=== PATIENT | female | born 1985 | race Caucasian/White ===

== ENCOUNTER → 2017-10-22 12:00 | Outpatient (CLI) | payer MEDICAID, SELFPAY ==
[2017-10-22 13:30] LABS: Free T3 3.1 pg/mL (2.18-3.98); T4 Free Direct 0.95 ng/dL (0.76-1.46)
[2017-10-23 14:47] LABS: Thyroid Peroxidase AB 128 IU/mL (0-34)
== END ==
PROVIDERS: Visit Provider Nurse Practitioner
DX: E03.9 Hypothyroidism, unspecified (principal)
CPT/HCPCS: 36415; 84439; 84443; 84481; 86376

== ENCOUNTER 2017-10-29 13:37 | Emergency (ER) | payer MEDICAID, SELFPAY ==
[2017-10-29 13:40] VITALS: BP 150/107; PULSE 104; RESP 18; TEMP 36.4; O2SAT 96; BMI 33.3
--- NOTE | 2017-10-29 13:42 | RAD_ITS ---
STUDY: X-RAY - LEFT KNEE REASON FOR EXAM: Female, 32 years old. Left knee pain following a fall. TECHNIQUE: 4 view(s) of the knee. COMPARISON: None. FINDINGS: Normal visualized distal femur. Normal visualized proximal tibia and fibula. Normal proximal tibiofibular articulation. Normal medial femorotibial compartment. Normal lateral femorotibial compartment. Normal patellofemoral articulation. The soft tissue structures are unremarkable. RAD/Knee 4 or More Views IMPRESSION: Normal x-ray examination of the knee. Electronically Signed: Nicholas Ty MD at 14:06 EST Tel [phone], Service support ,
--- NOTE | 2017-10-29 15:04 | ED.VISSUMM ---
- ER Visit Summary Date of Service: 10/29/17 Chief Complaint: Knee pain status post fall History of Present Illness: The patient is a 32 F who slipped this morning. She landed on her left knee. She presents because of increasing pain and swelling. Immunization is not known. She believes it is greater than 10 years. She reports limited range of motion and pain with ambulation. She is on no medication and reports no medical problems. She is a smoker. She denies any paresthesia, anesthesia or motor weakness. She denies any other injury. Please read written note for complete detail Physical Examination: Vital signs are remarkable for an elevated blood pressure 150/107 and a heart rate of 104. She is not hypoxic nor is she febrile. Examination left knee reveals contusion abrasion over the left patella. The patella is not ballotable. There is no effusion. She is able to extend to 170? and flex to 100?. There is no laxity with varus valgus stress testing. Yung's test is negative. Modified Lamar's test is negative. She did complain of pain along the anterior tibial plateau. There is no neurovascular deficit distal to injury. Test Results: X-ray of the knee was obtained per nurse protocol. There is no evidence of fracture, foreign body or effusion. Emergency Department Course and Treatment: 4 view x-ray of the left knee was obtained per nurse protocol. Adacel IM and appropriate wound care. Treatment Plan: Symptomatic treatment and appropriate home-going instructions Disposition: Discharge to home Impression: Contusion and abrasion left knee status post fall initial encounter This note was generated with [employer] dictation software. It may contain incorrect words, spelling, and punctuation that were not noted in review of the chart prior to signing ED Disposition - Plan for ED Patient: Disposition: Home or Assisted Living Chief Complaint: Lower Extremity Injury Instructions: ED Contusion Lower Ext, ED Abrasion Referrals: Care Physician,No Primary [Primary Care Provider] - Viola Velasquez MD [STAFF PHYSICIAN] - 1 Week if not improving
--- NOTE | 2017-10-29 15:10 | ED.DCSUM_ITS ---
- ER Visit Summary Date of Service: 10/29/17 Chief Complaint: Knee pain status post fall History of Present Illness: The patient is a 32 F who slipped this morning. She landed on her left knee. She presents because of increasing pain and swelling. Immunization is not known. She believes it is greater than 10 years. She reports limited range of motion and pain with ambulation. She is on no medication and reports no medical problems. She is a smoker. She denies any paresthesia, anesthesia or motor weakness. She denies any other injury. Please read written note for complete detail Physical Examination: Vital signs are remarkable for an elevated blood pressure 150/107 and a heart rate of 104. She is not hypoxic nor is she febrile. Examination left knee reveals contusion abrasion over the left patella. The patella is not ballotable. There is no effusion. She is able to extend to 170 ? and flex to 100?. There is no laxity with varus valgus stress testing. Yung's test is negative. Modified Lamar's test is negative. She did complain of pain along the anterior tibial plateau. There is no neurovascular deficit distal to injury. Test Results: X-ray of the knee was obtained per nurse protocol. There is no evidence of fracture, foreign body or effusion. Emergency Department Course and Treatment: 4 view x-ray of the left knee was obtained per nurse protocol. Adacel IM and appropriate wound care. Treatment Plan: Symptomatic treatment and appropriate home-going instructions Disposition: Discharge to home Impression: Contusion and abrasion left knee status post fall initial encounter This note was generated with [employer] dictation software. It may contain incorrect words, spelling, and punctuation that were not noted in review of the chart prior to signing ED Disposition - Plan for ED Patient: Disposition: Home or Assisted Living Chief Complaint: Lower Extremity Injury Instructions: ED Contusion Lower Ext, ED Abrasion Referrals: Care Physician,No Primary [Primary Care Provider] - Viola Velasquez MD [STAFF PHYSICIAN] - 1 Week if not improving
[2017-10-29] MEDS: Diphth,Pertuss(Acell),Tet Vac 0.5 ML Vial IM (15:31)
[2017-10-29 15:32] VITALS: BP 135/77; PULSE 59; RESP 16; O2SAT 98
== END 2017-10-29 15:33 | disposition home or self-care (01) ==
PROVIDERS: Emergency Provider Emergency Medicine
DX: S80.02XA Contusion of left knee, initial encounter (principal); S80.212A Abrasion, left knee, initial encounter; W01.0XXA Fall on same level from slipping, tripping and stumbling without subsequent striking against object, initial encounter; Y93.9 Activity, unspecified; Y92.9 Unspecified place or not applicable; F17.200 Nicotine dependence, unspecified, uncomplicated
CPT/HCPCS: 73564; 90471; 90715; 99282

== ENCOUNTER 2018-03-25 12:22 | Emergency (ER) | payer MEDICAID, SELFPAY ==
[2018-03-25 12:23] VITALS: BP 135/86; PULSE 90; RESP 16; TEMP 36.3; O2SAT 98; BMI 32.5
--- NOTE | 2018-03-25 15:10 | ED.DCSUM_ITS ---
- ER Visit Summary Date of Service: 03/25/18 Chief Complaint: Right shoulder pain History of Present Illness: The patient is a 32 F who presents with about 1 day of pain along the right side of her neck down into the back of her shoulder and upper back. She has a history of prior similar symptoms about a year ago and was diagnosed with a trapezius strain. She denies any fall or injury. She has tried Tylenol ibuprofen and heating pad with only minimal relief. No paresthesias weakness or loss of function. No chest pain or shortness of breath. Physical Examination: Afebrile vitals are stable Patient resting comfortably Heart is regular rate and rhythm Lungs are clear Patient has pain on palpation focal to the distribution of the right trapezius she has active full range of motion of the shoulder normal sensation distally brisk capillary refill Test Results: Not indicated Emergency Department Course and Treatment: History and examination are consistent with a right trapezius strain. She was given prescriptions for naproxen and Flexeril. She is agreeable to this plan. She understands return for new or worsening symptoms and otherwise to follow-up as an outpatient as needed and was discharged home. Treatment Plan: [] Disposition: Discharge Impression: Right trapezius strain This note was generated with [employer] dictation software. It may contain incorrect words, spelling, and punctuation that were not noted in review of the chart prior to signing ED Disposition - Plan for ED Patient: Chief Complaint: Upper Extremity Injury Referrals: Care Physician,No Primary [Primary Care Provider] -
--- NOTE | 2018-03-25 15:10 | ED.DEP ---
ED Disposition - Plan for ED Patient: Chief Complaint: Upper Extremity Injury Instructions: ED Strain Muscle Ext Prescriptions: Naproxen [Naprosyn] 500 mg PO BID #20 tab Cyclobenzaprine [Flexeril] 10 mg PO TID PRN #20 tab PRN Reason: Muscle Spasm Referrals: Care Physician,No Primary [Primary Care Provider] -
== END 2018-03-25 15:19 | disposition home or self-care (01) ==
PROVIDERS: Emergency Provider Emergency Medicine
DX: S46.811A Strain of other muscles, fascia and tendons at shoulder and upper arm level, right arm, initial encounter (principal); X58.XXXA Exposure to other specified factors, initial encounter; Y93.9 Activity, unspecified; Y92.9 Unspecified place or not applicable; Z72.0 Tobacco use
CPT/HCPCS: 99282

== ENCOUNTER → 2018-04-18 15:04 | Outpatient (CLI) | payer MEDICAID, SELFPAY ==
[2018-04-18 16:44] LABS: Follicle Stimulating Hormone 63.8 mIU/mL; Free T3 2.5 pg/mL (2.18-3.98); Luteinizing Hormone 32.6 mIU/mL; Prolactin 5.4 ng/mL; T4 Free Direct 0.87 ng/dL (0.76-1.46); Thyroid Stim Hormone (TSH) 2.63 uIU/mL (0.358-3.74)
[2018-04-23 14:07] LABS: Testosterone, % Free 2.69 % (0.50-2.80); Testosterone, Free 0.43 ng/dL (0.10-0.85); Testosterone, Total 16 ng/dL (8-48)
[2018-04-24 12:05] LABS: Estrogen, Total, Serum 55 pg/mL (.)
== END ==
PROVIDERS: Visit Provider Obstetrics & Gynecology
DX: E28.310 Symptomatic premature menopause (principal)
CPT/HCPCS: 36415; 82672; 83001; 83002; 83036; 84146; 84402; 84403; 84439; 84443; 84481

== ENCOUNTER → 2018-04-24 17:58 | Outpatient (CLI) | payer MEDICAID, SELFPAY ==
[2018-05-01 11:42] LABS: HPV Reflexed? NOT INDICATED
== END ==
PROVIDERS: Visit Provider Obstetrics & Gynecology
DX: Z12.4 Encounter for screening for malignant neoplasm of cervix (principal); Z12.72 Encounter for screening for malignant neoplasm of vagina
CPT/HCPCS: 88175; G0145

== ENCOUNTER 2018-08-06 22:27 | Emergency (ER) | payer MEDICAID, SELFPAY ==
[2018-08-06 22:28] VITALS: BP 141/50; PULSE 97; RESP 14; TEMP 36.7; O2SAT 95; BMI 29.5
--- NOTE | 2018-08-06 23:15 | RAD_ITS ---
STUDY: X-RAY - LEFT KNEE REASON FOR EXAM: Female, 33 years old. Pain. TECHNIQUE: 4 view(s) of the knee. COMPARISON: October 29, 2017. FINDINGS: Normal visualized distal femur. Normal visualized proximal tibia and fibula. Normal proximal tibiofibular articulation. Normal medial femorotibial compartment. Normal lateral femorotibial compartment. Normal patellofemoral articulation. The soft tissue structures are unremarkable. RAD/Knee 4 or More Views IMPRESSION: Normal x-ray examination of the knee. Electronically Signed: Dilshad Ibanez MD at 23:47 EST , Service support ,
[2018-08-06 23:54] LABS: D-Dimer Quantitative (DVT/PE) < 0.27 FEU/ug/m (0.27-0.49)
--- NOTE | 2018-08-07 00:01 | ED.DCSUM_ITS ---
- ER Visit Summary Date of Service: 08/06/18 Chief Complaint: Pain of the left knee. History of Present Illness: The patient is a 33 F who presents with left knee pain. She had surgery 6-7 weeks ago. She states that they removed a nerve bundle and three quarters of my fat pad. She states that her pain was improving after the surgery but has increased over the last 6 days. She states this was an outpatient surgery. She cannot remember what city the surgery was done and and cannot remember her surgeon's name. She is states that she did speak to the office who was concerned about the possibility of a clot. No swelling. No paresthesias or weakness. No fever chest pain shortness of breath. She has hydrocodone and naproxen at home which she states is not helping. Physical Examination: Afebrile vitals are normal Moist mucous membranes line heart regular rate No respiratory distress Patient does have pain on palpation of the left knee there are some anterior surgical scars no appreciable effusion no deformity active full range of motion no edema of the left lower extremity no calf tenderness, easily palpable dorsalis pedis pulse with brisk capillary refill and normal sensation light touch normal motor function no weakness Test Results: D-dimer is negative. Knee x-ray is normal. Emergency Department Course and Treatment: Patient's examination is not suggestive of DVT as her pain is focal just to the knee and she does not have any edema or calf tenderness. Her d-dimer is negative. Therefore I do feel DVT is ruled out. Her x-ray is unremarkable she does not have evidence of infection such as erythema or warmth there is no effusion. She is already taking NSAIDs and narcotics so was advised on supportive care including rest ice and elevation. She was advised to follow-up with her orthopedic surgeon was discharged home. Treatment Plan: [] Disposition: Discharge Impression: Left knee pain This note was generated with [employer] dictation software. It may contain incorrect words, spelling, and punctuation that were not noted in review of the chart prior to signing ED Disposition - Plan for ED Patient: Chief Complaint: Lower Extremity Injury Referrals: Care Physician,No Primary [Primary Care Provider] -
--- NOTE | 2018-08-07 00:01 | ED.DEP ---
ED Disposition - Plan for ED Patient: Chief Complaint: Lower Extremity Injury Instructions: ED Knee Pain [facility] Referrals: Care Physician,No Primary [Primary Care Provider] -
[2018-08-07 00:03] VITALS: BP 136/68; PULSE 71; RESP 16; O2SAT 100
--- OUTSIDE RECORDS SUMMARY | 2018-10-02 10:43 | XMS RPT_ITS ---
:1985 Author Organization [facility] Care Team Providers Name Role Phone DEBBIE CALDERON Referring Unavailable DEBBIE CALDERON Admitting Unavailable DEBBIE CALDERON Attending Unavailable TOMMY WILKERSON Attending Unavailable EMILY TRONCOSO Referring Unavailable TOMMY WILKERSON Attending Unavailable EMILY TRONCOSO Referring Unavailable FARROW, LUTUL D Attending Unavailable LOCKETT, LISA (PT) Attending Unavailable FARROW, LUTUL D Referring Unavailable STEVENSON MICHELE (PA-C) Attending Unavailable FARROW, LUTUL D Referring Unavailable LOCKETTCATIE (PT) Attending Unavailable FARROW, LUTUL D Referring Unavailable LOCKETTCATIE (PT) Attending Unavailable FARROW, LUTUL D Referring Unavailable ShookRajwinder ALLERGIST-C Attending Unavailable Primay Care Physicia, No Referring Unavailable Primay Care Physicia, No Primary Care Unavailable ShookRajwinder ALLERGIST-C Attending Unavailable ShookRajwinder ALLERGIST-C Referring Unavailable Primay Care Physicia, No Primary Care Unavailable Primay Care Physicia, No Primary Care Unavailable Nick Silveira Attending Unavailable Primay Care Physicia, No Primary Care Unavailable Watson Ocampo Attending Unavailable Zander Hodges Attending Unavailable Primay Care Physicia, No Primary Care Unavailable Zander Hodges Attending Unavailable Zander Hodges Referring Unavailable Primay Care Physicia, No Primary Care Unavailable Primay Care Physicia, No Primary Care Unavailable Watson Ocampo Attending Unavailable PROBLEMS PROBLEMS DATE TYPE CONDITION / CODE ATTENDING STATUS SOURCE 06/03/2018 Active Unknown / CATIE LOCKETT Active [facility] UNK(Unknown) (PT) Main [place] Repository 05/21/2018 Active Pain in unspecified FARROW, LUTUL D Active [facility] knee / Other [place] M25.569(ICD-10) Repository 05/21/2018 Active 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, unspecified / D36.10(ICD-10) 05/21/2018 Active Pain in left knee / NA Active [facility] M25.562(ICD-10) Other [place] Repository 12/01/2015 Active Mild intermittent NA Active [facility] asthma, Other [place] uncomplicated / Repository J45.20(ICD-10) 05/24/2018 Active Encounter for other NA Active [facility] preprocedural Other [place] examination / Repository Z01.818(ICD-10) 04/25/2018 Unknown Z12.4 - Encounter Zander Hodges Active [place] for screening for Community malignant neoplasm [facility] cervix / Repository Z12.4(ICD-10) 04/25/2018 Unknown Z12.72 - Encounter Zander Hodges Active [place] for screening for Community malignant neoplasm Hospital of vagina / Repository Z12.72(ICD-10) 10/22/2017 Unknown E03.9 - Rajwinder Garay Active [place] Hypothyroidism, ALLERGIST-C Community unspecified / Hospital E03.9(ICD-10) Repository PROCEDURES PROCEDURES No Procedure Records FoundRESULTS RESULTS EMERGENCY DEPARTMENT Observed: 08/07/2018 Status: F Source: [place] SUMMARY 12:01 AM [facility] REPOSITORY [facility] Medical Records Department [address] [place] [address] Emergency Department Summary 08/06/18 2358 MR#: [id number] Acct: [id number] Name: WILFRID POND Rep #: [id number] : 1985 33 From: Watson Ocampo MD PCP: Care Physician, No Primary Status: REG ER - ER Visit Summary Date of Service: 08/06/18 Chief Complaint: Pain of the left knee. History of Present Illness: The patient is a 33 F who presents with left knee pain. She had surgery 6-7 weeks ago. She states that they removed a nerve bundle and three quarters of my fat pad. She states that her pain was improving after the surgery but has increased over the last 6 days. She states this was an outpatient surgery. She cannot remember what city the surgery was done and and cannot remember her surgeon's name. She is states that she did speak to the office who was concerned about the possibility of a clot. No swelling. No paresthesias or weakness. No fever chest pain shortness of breath. She has hydrocodone and naproxen at home which she states is not helping. Physical Examination: Afebrile vitals are normal Moist mucous membranes line heart regular rate No respiratory distress Patient does have pain on palpation of the left knee there are some anterior surgical scars no appreciable effusion no deformity active full range of motion no edema of the left lower extremity no calf tenderness, easily palpable dorsalis pedis pulse with brisk capillary refill and normal sensation light touch normal motor function no weakness Test Results: D-dimer is negative. Knee x-ray is normal. Emergency Department Course and Treatment: Patient's examination is not suggestive of DVT as her pain is focal just to the knee and she does not have any edema or calf tenderness. Her d-dimer is negative. Therefore I do feel DVT is ruled out. Her x-ray is unremarkable she does not have evidence of infection such as erythema or warmth there is no effusion. She is already taking NSAIDs and narcotics so was advised on supportive care including rest ice and elevation. She was advised to follow-up with her orthopedic surgeon was discharged home. Treatment Plan: [] Disposition: Discharge Impression: Left knee pain This note was generated with [employer] dictation software. It may contain incorrect words, spelling, and punctuation that were not noted in review of the chart prior to signing ED Disposition - Plan for ED Patient: Chief Complaint: Lower Extremity Injury Referrals: Care Physician,No Primary [Primary Care Provider] - What to do if you have Problems For any increased pain, shortness of breath, bleeding, nausea or vomiting, chest pain, or any unexpected problems, contact your Primary Care Provider. Call [facility] ([phone]) or report to the closest Emergency Room. Call 911 if necessary. 08/07/18 0001 <Electronically signed by Watson Ocampo MD> Date Watson Ocampo MD Cosigner Signature (If Indicated): Date CC: No Primary Care Physician DISCHARGE INSTRUCTION Observed: 08/07/2018 Status: F Source: [place] 12:01 AM [facility] REPOSITORY [facility] Medical Records Department [address] [place] [address] Discharge Instruction 08/07/18 0001 MR#: [id number] Acct: [id number] Name: WILFRID POND Rep #: [id number] : 1985 33 From: Watson Ocampo MD PCP: Rebecca Physician, No Primary Status: REG ER ED Disposition - Plan for ED Patient: Chief Complaint: Lower Extremity Injury Instructions: ED Knee Pain [facility] Referrals: Rebecca Physician,No Primary [Primary Care Provider] - What to do if you have Problems For any increased pain, shortness of breath, bleeding, nausea or vomiting, chest pain, or any unexpected problems, contact your Primary Care Provider. Call [facility] ([phone]) or report to the closest Emergency Room. Call 911 if necessary. 08/07/18 0001 <Electronically signed by Watson Ocampo MD> Date Watson Ocampo MD Cosigner Signature (If Indicated): Date CC: No Primary Care Physician D-DIMER QUANTITATIVE Collected: 08/06/2018 Status: F Source: [place] (DVT/PE) 11:22 PM [facility] REPOSITORY TYPE CODE TESTS RESULT OUT OF RANGE REFERENCE UNITS LAB L300.8000 0.27-0.49 FEU/ug/m Low D-DIMER < 0.27 QUANT Result Comment: NORMAL D-Dimer level (<0.50) indicates no DVT or PE. Performed By: #### L300.8000 #### [facility] [address] [place], [address] KNEE 4 OR MORE Observed: 08/06/2018 Status: F Source: [place] VIEWS 11:15 PM [facility] REPOSITORY [facility] Imaging Services [address] [place] [address] Knee 4 or More Views MR#: [id number] Acct: [id number] Name: ESIFTIKHARWILFRID Rep #: [id number] : 1985 F 33 From: Dilshad Ibanez PCP: Care Physician, No Primary Status: REG ER Study: Knee 4 or More Views Date of Exam: 08/06/18 Exam# [id number] Ordering Dr: Watson Ocampo MD STUDY: X-RAY - LEFT KNEE REASON FOR EXAM: Female, 33 years old. Pain. TECHNIQUE: 4 view(s) of the knee. COMPARISON: October 29, 2017. FINDINGS: Normal visualized distal femur. Normal visualized proximal tibia and fibula. Normal proximal tibiofibular articulation. Normal medial femorotibial compartment. Normal lateral femorotibial compartment. Normal patellofemoral articulation. The soft tissue structures are unremarkable. RAD/Knee 4 or More Views IMPRESSION: Normal x-ray examination of the knee. Electronically Signed: Dilshad Ibanez MD at 23:47 EST , Service support , CC: No Primary Care Physician; Watson Ocampo MD Inventory Control Specialist: Signed PROGRESS Observed: 06/19/2018 Status: COMPLETED Source: [place] 1:25 PM [facility] [place] REPOSITORY O ID: [id number] Author: Catie (Pt) Gaudencio Service: (none) Author Type: Physical Therapist Type: Progress Notes Filed: 06/19/2018 1:28 PM Note Text: Episode Visit Count: 3 Therapist That Will Oversee The Plan Of Care: Catie Lockett Start of Care Date: 06/03/18 Onset Date: 05/27/18 Plan of Care Certification Date: 06/03/18 Patient Identified by Name and Date of : Yes REHABILITATION AND SPORTS THERAPY PHYSICAL THERAPY TREATMENT NOTE ASSESSMENT: Wilfrid Pond demonstrated improvements in both flexion and extension ROM, improved gait and strength. Found great results of knee flexion with less pain in prone position. Also alternate step stretch found helpful. Best extension in prone The patient will continue to benefit from continued skilled physical therapy for progression of ROM and strengthening per protocal PLAN FOR NEXT VISIT: Progress per post op protocol . Continue to work on ROM. SUBJECTIVE: Pt notes that she feels she is doing better. Knee still feel tight and swollen to bend it but able to get around better. Admits that she goes without crutch a little for short distance in the house Pain Score: 5/10 Pain Location: Knee - Left Description: Aching Frequency: Continuous Post Treatment Pain Score: No Change Pain Location: Knee - Left Post Treatment Pain Description: Aching OBJECTIVE MEASURES WITH LEVEL OF FUNCTION: LE AROM R Knee Flexion: 93 Degrees LE PROM R Knee Extension: 0 Degrees R Knee Flexion: 97 Degrees (on step) TREATMENT: Therapeutic Exercise: 1: quad sets 2x10 2: SLR 2x10 3: standing TKE no resistance 2x10 4: heelslides 1x15 supine with strap 5: prone hang for extension with towel roll under thigh , and use of lacrosse ball to hamstrings 6: seated knee flexion stretch wtih gravilty pull and use of lacrosse ball to thigh for quad relaxation with good results 7: prone knee flexion passive x4 8: supine knee flexion with legs on physioball 2x10 9: strap gastroc stretch long siitting 30 sec x3 10: green step ups 2x10 11: flexion stretch on 2nd step x6 12: LAQ 2x10 13: seated hamstring stretch 30 sec x3 Skilled Intervention: Patient was educated in proper exercise technique and purpose for exercises. Skilled judgment was provided in selection of appropriate interventions. Correct performance of therapeutic exercises was facilitated with verbal and visual cuing. Assigned Home Exercise Program: 1: may add step stretch for flexion. Billing: [facility]: Therapeutic Exercise ([id number]): 1:1 time: 40 minutes (3 units: 38-52 mins) Total time: 40 minutes Catie Lockett PT CNTHERAPY Observed: 06/18/2018 Status: COMPLETED Source: [place] 3:30 PM [facility] REPOSITORY OT/PT/Speech Visit (PTWS) WILFRID POND ([id number]) 1985 F Date Time Provider Department 06/18/18 3:30 PM CATIE LOCKETT (PT) PTWS Date Time Provider Department Center 06/18/2018 3:30 PM [id number], LISA (PT) PTWS [facility] [place] Reason for Visit: Physical Therapy [503] Primary Visit Diagnosis:S/P left knee surgery [Z98.890] Allergies As of Date: 06/18/2018 Noted Allergy Reaction DEXTROMETHORPHAN 02/23/2011 16 - Unknown FENTANYL 01/04/2016 9 - Itching Comments: Pt. states almost ripped skin off post-op KETOROLAC 02/23/2011 16 - Unknown Comments: Motrin= home med PSEUDOEPHEDRINE 02/23/2011 16 - Unknown TAPE (ADHESIVE TAPE-SILICONES) 05/27/2018 14 - Other: See Comments Comments: PLASTIC TAPE Date Reviewed: 06/13/2018 Reviewed by: Stevenson Michele - Fully Assessed Prescriptions as of 06/18/2018 Sig: NAPROSYN ORAL Take by mouth. HYDROCODONE 5 MG-ACETAMINOPHE* Take 1-2 tablets by mouth tyrone* ALBUTEROL INHALATION Inhale as instructed as need* Progress Notes: Catie Lockett PT 06/19/2018 1:28 PM Signed Episode Visit Count: 3 Therapist That Will Oversee The Plan Of Care: Catie Lockett Start of Care Date: 06/03/18 Onset Date: 05/27/18 Plan of Care Certification Date: 06/03/18 Patient Identified by Name and Date of : Yes REHABILITATION AND SPORTS THERAPY PHYSICAL THERAPY TREATMENT NOTE ASSESSMENT: Wilfrid Demi Pond demonstrated improvements in both flexion and extension ROM, improved gait and strength. Found great results of knee flexion with less pain in prone position. Also alternate step stretch found helpful. Best extension in prone The patient will continue to benefit from continued skilled physical therapy for progression of ROM and strengthening per protocal PLAN FOR NEXT VISIT: Progress per post op protocol . Continue to work on ROM. SUBJECTIVE: Pt notes that she feels she is doing better. Knee still feel tight and swollen to bend it but able to get around better. Admits that she goes without crutch a little for short distance in the house Pain Score: 5/10 Pain Location: Knee - Left Description: Aching Frequency: Continuous Post Treatment Pain Score: No Change Pain Location: Knee - Left Post Treatment Pain Description: Aching OBJECTIVE MEASURES WITH LEVEL OF FUNCTION: LE AROM R Knee Flexion: 93 Degrees LE PROM R Knee Extension: 0 Degrees R Knee Flexion: 97 Degrees (on step) TREATMENT: Therapeutic Exercise: 1: quad sets 2x10 2: SLR 2x10 3: standing TKE no resistance 2x10 4: heelslides 1x15 supine with strap 5: prone hang for extension with towel roll under thigh , and use of lacrosse ball to hamstrings 6: seated knee flexion stretch wtih gravilty pull and use of lacrosse ball to thigh for quad relaxation with good results 7: prone knee flexion passive x4 8: supine knee flexion with legs on physioball 2x10 9: strap gastroc stretch long siitting 30 sec x3 10: green step ups 2x10 11: flexion stretch on 2nd step x6 12: LAQ 2x10 13: seated hamstring stretch 30 sec x3 Skilled Intervention: Patient was educated in proper exercise technique and purpose for exercises. Skilled judgment was provided in selection of appropriate interventions. Correct performance of therapeutic exercises was facilitated with verbal and visual cuing. Assigned Home Exercise Program: 1: may add step stretch for flexion. Billing: [facility]: Therapeutic Exercise ([id number]): 1:1 time: 40 minutes (3 units: 38-52 mins) Total time: 40 minutes Catie Lockett PT PROGRESS Observed: 06/14/2018 Status: COMPLETED Source: [place] 9:04 AM [facility] REPOSITORY O ID: [id number] Author: Catie Lockett Service: (none) Author Type: Physical Therapist Type: Progress Notes Filed: 06/14/2018 9:07 AM Note Text: Episode Visit Count: 2 Therapist That Will Oversee The Plan Of Care: Catie Lockett Start of Care Date: 06/03/18 Onset Date: 05/27/18 Plan of Care Certification Date: 06/03/18 Patient Identified by Name and Date of : Yes REHABILITATION AND SPORTS THERAPY PHYSICAL THERAPY TREATMENT NOTE ASSESSMENT: Wilfrid R Esiftikhar demonstrated good quad contraction and SLR with no lag but continues to have very poor ROM. Able to achieve extension to -5 but flexion not yet to 90 degrees. Pt given several suggestions of different ways to stretch to achieve increased flexion. She was receptive. Overall decreased pain and improved gait pattern by end of session The patient will continue to benefit from continued skilled physical therapy for progression of exs to improve ROM and strength. PLAN FOR NEXT VISIT: Continue to work diligently on ROM SUBJECTIVE: Pt notes that she did see the doctor today, gave her rodney wrap, and tubigrip for knee. Pt states that she continues to have pain and limited motion but reports that she does like the prone extension stretch Pain Score: 8/10 Pain Location: Knee - Left Description: Aching Frequency: Continuous Post Treatment Pain Score: 6/10 Pain Location: Knee - Left Post Treatment Pain Description: Aching OBJECTIVE MEASURES WITH LEVEL OF FUNCTION: LE PROM R Knee Extension: -5 Degrees R Knee Flexion: 87 Degrees Gait with one crutch and moderate deviation of decreased flexion and extension TREATMENT: Therapeutic Exercise: 1: quad sets 2x10 2: SLR 2x10 3: standing TKE no resistance 2x10 4: heelslides 1x10 supine 5: prone hang for extension with towel roll under thigh , and use of lacrosse ball to hamstrings 6: seated knee flexion stretch wtih gravilty pull and use of lacrosse ball to thigh for quad relaxation with good results 7: retrowalking in parallel bars for emphasis and increased knee flexion and extension 8: seated knee flexion with body slide for incresaed flexion 1x5 9: strap gastroc stretch long siitting 30 sec x3 10: supine gravity assisted flexion with hands supporting thighs Skilled Intervention: Patient was educated in proper exercise technique and purpose for exercises. Skilled judgment was provided in selection of appropriate interventions. Correct performance of therapeutic exercises was facilitated with verbal and visual cuing. Assigned Home Exercise Program: 1: try alternate ways of stretching for flexion, soft tissue mobilization to quad mm for increased flexion Billing: [facility]: Therapeutic Exercise ([id number]): 1:1 time: 45 minutes (3 units: 38-52 mins) Total time: 45 minutes Catie Lockett PT CNTHERAPY Observed: 06/13/2018 Status: COMPLETED Source: [place] 5:00 PM [facility] REPOSITORY OT/PT/Speech Visit (PTWS) WILFRID POND ([id number]) 1985 F Date Time Provider Department 06/13/18 5:00 PM CATIE LOCKETT (PT) PTWS Date Time Provider Department Center 06/13/2018 5:00 PM [id number], LISA (PT) PTWS [facility] [place] Reason for Visit: Physical Therapy [503] Primary Visit Diagnosis:S/P left knee surgery [Z98.890] Allergies As of Date: 06/13/2018 Noted Allergy Reaction DEXTROMETHORPHAN 02/23/2011 16 - Unknown FENTANYL 01/04/2016 9 - Itching Comments: Pt. states almost ripped skin off post-op KETOROLAC 02/23/2011 16 - Unknown Comments: Motrin= home med PSEUDOEPHEDRINE 02/23/2011 16 - Unknown TAPE (ADHESIVE TAPE-SILICONES) 05/27/2018 14 - Other: See Comments Comments: PLASTIC TAPE Date Reviewed: 06/13/2018 Reviewed by: Stevenson Michele - Fully Assessed Prescriptions as of 06/13/2018 Sig: NAPROSYN ORAL Take by mouth. HYDROCODONE 5 MG-ACETAMINOPHE* Take 1-2 tablets by mouth tyrone* ALBUTEROL INHALATION Inhale as instructed as need* Progress Notes: Catie Lockett PT 06/14/2018 9:07 AM Signed Episode Visit Count: 2 Therapist That Will Oversee The Plan Of Care: Catie Lockett Start of Care Date: 06/03/18 Onset Date: 05/27/18 Plan of Care Certification Date: 06/03/18 Patient Identified by Name and Date of : Yes REHABILITATION AND SPORTS THERAPY PHYSICAL THERAPY TREATMENT NOTE ASSESSMENT: Wilfrid Pond demonstrated good quad contraction and SLR with no lag but continues to have very poor ROM. Able to achieve extension to -5 but flexion not yet to 90 degrees. Pt given several suggestions of different ways to stretch to achieve increased flexion. She was receptive. Overall decreased pain and improved gait pattern by end of session The patient will continue to benefit from continued skilled physical therapy for progression of exs to improve ROM and strength. PLAN FOR NEXT VISIT: Continue to work diligently on ROM SUBJECTIVE: Pt notes that she did see the doctor today, gave her rodney wrap, and tubigrip for knee. Pt states that she continues to have pain and limited motion but reports that she does like the prone extension stretch Pain Score: 8/10 Pain Location: Knee - Left Description: Aching Frequency: Continuous Post Treatment Pain Score: 6/10 Pain Location: Knee - Left Post Treatment Pain Description: Aching OBJECTIVE MEASURES WITH LEVEL OF FUNCTION: LE PROM R Knee Extension: -5 Degrees R Knee Flexion: 87 Degrees Gait with one crutch and moderate deviation of decreased flexion and extension TREATMENT: Therapeutic Exercise: 1: quad sets 2x10 2: SLR 2x10 3: standing TKE no resistance 2x10 4: heelslides 1x10 supine 5: prone hang for extension with towel roll under thigh , and use of lacrosse ball to hamstrings 6: seated knee flexion stretch wtih gravilty pull and use of lacrosse ball to thigh for quad relaxation with good results 7: retrowalking in parallel bars for emphasis and increased knee flexion and extension 8: seated knee flexion with body slide for incresaed flexion 1x5 9: strap gastroc stretch long siitting 30 sec x3 10: supine gravity assisted flexion with hands supporting thighs Skilled Intervention: Patient was educated in proper exercise technique and purpose for exercises. Skilled judgment was provided in selection of appropriate interventions. Correct performance of therapeutic exercises was facilitated with verbal and visual cuing. Assigned Home Exercise Program: 1: try alternate ways of stretching for flexion, soft tissue mobilization to quad mm for increased flexion Billing: [facility]: Therapeutic Exercise ([id number]): 1:1 time: 45 minutes (3 units: 38-52 mins) Total time: 45 minutes Catie Lockett PT PROGRESS Observed: 06/13/2018 Status: COMPLETED Source: [place] 12:05 PM [facility] REPOSITORY HNO ID: [id number] Author: Stevenson Michele Service: (none) Author Type: Physician Machine Joint Cutter Type: Progress Notes Filed: 06/13/2018 12:38 PM Note Text: Alice Pond is seen today status post SALK with Debbie Calderon M.D. at [facility] on 05/27/18. Post op diagnosis: First post op clinic visit; updated knee films not indicated. Reason for visit: Patient presents with: Postop left knee Patient conveys that her recovery has been without complications except for ongoing pain. Missed her originally scheduled postop appt last week. Currently involved in moving out of her residence, so she is very busy but has a lot of help from friends. Patient pleased with the outcome of surgery. Medication used during recovery: Naprosyn and [place] Medications and allergies reviewed and updated. Pain Scale: Pt. states pain is a 7 on a scale of 0-10. Ambulating with assistance. Using one crutch. Never used 2 crutches and temporarily used a walker Patient involved with physical therapy at the [facility]. Initial and only visit so far on 06/03. Physical therapy note has been provided. Reviewed OARRS report. Reviewed Problem list Examination: Wounds are undressed. Cleaned wounds with alcohol to remove surgical ink. No steri- strips on wounds. Wounds are becoming well-healed, and without drainage, unusual inflammation or edema. No erythema, mild effusion, no warmth. Proximal wound has a healing blister from the steri-strip. Radiographs not indicated for updating A/P: Doing very well except for pain. Reviewed operative note and findings. Compliant with crutches and participation in PT. Continue on with outpatient PT. Next PT appt is scheduled for later today. Postop pain medication refill requested and provided. Provided wound, knee and skin care education, Tubigrip and rodney wrap. OK to shower with the wound uncovered. RTC on 06/28 for a follow up visit with Dr. Calderon, no x-rays needed. Stevenson Michele, MS, NOLAN CNOV Observed: 06/13/2018 Status: COMPLETED Source: [place] 11:40 AM [facility] REPOSITORY Office Visit (ORTHST) WILFRID POND ([id number]) 1985 F Date Time Provider Department 06/13/18 11:40 AM STEVENSON MICHELE During your visit today, we recorded the following information about you: Stevenson Michele PA-C 06/13/2018 12:38 PM Signed Alice Pond is seen today status post SALK with Debbie Calderon M.D. at [facility] on 05/27/18. Post op diagnosis: First post op clinic visit; updated knee films not indicated. Reason for visit: Patient presents with: Postop left knee Patient conveys that her recovery has been without complications except for ongoing pain. Missed her originally scheduled postop appt last week. Currently involved in moving out of her residence, so she is very busy but has a lot of help from friends. Patient pleased with the outcome of surgery. Medication used during recovery: Naprosyn and [place] Medications and allergies reviewed and updated. Pain Scale: Pt. states pain is a 7 on a scale of 0-10. Ambulating with assistance. Using one crutch. Never used 2 crutches and temporarily used a walker Patient involved with physical therapy at the [facility]. Initial and only visit so far on 06/03. Physical therapy note has been provided. Reviewed OARRS report. Reviewed Problem list Examination: Wounds are undressed. Cleaned wounds with alcohol to remove surgical ink. No steri- strips on wounds. Wounds are becoming well-healed, and without drainage, unusual inflammation or edema. No erythema, mild effusion, no warmth. Proximal wound has a healing blister from the steri-strip. Radiographs not indicated for updating A/P: Doing very well except for pain. Reviewed operative note and findings. Compliant with crutches and participation in PT. Continue on with outpatient PT. Next PT appt is scheduled for later today. Postop pain medication refill requested and provided. Provided wound, knee and skin care education, Tubigrip and rodney wrap. OK to shower with the wound uncovered. RTC on 06/28 for a follow up visit with Dr. Calderon, no x-rays needed. Stevenson Michele, MS, NOLAN Michele PA-C 06/13/2018 12:30 PM Addendum KNEE ARTHROSCOPY - PHYSICAL THERAPY PROTOCOL Post-operative Period 0 to 3 weeks: 2 to 3 visits per week, 5 times a week home program Prone lying, supine with logroll under heel, and gentle stretching to achieve full hyper-extension Quad sets, may use electrical stimulation, increase # visit/week if quad inhibited Patellar mobilizations, especially superiorly Straight leg raises, full arc quads without weights Prone knee flexion, heel slides, calf and hamstring stretching Icing program, 3 to 5 times a day, 30 minutes each after exercises Crutches may be stopped within 1 week as long as the patient has full extension, can perform a straight leg raise without an extension lag, and ambulates without a limp. ?Patients may be weaned to one crutch (opposite arm, after 3 weeks) in order to normalize gait (no limp) and as long as full extension and no extension lag with straight leg raises are obtained. Begin quad exercises including mini-squats, wall slide mini- squats, partial arc quads (60 to 90 degrees), and hamstring curls with light weights when range of motion is full Toe raises with weights, step-ups (begin with 2 inches and progress to a full step) Crutches should be weaned off in this stage, and gait should be normal - if not, contact Dr. Calderon 3 to 6 weeks: 2 to 3 visits per week, 5 times a week home program Continue all exercises in previous phase (as described above) Focus rehabilitation towards more closed-chain exercises including leg presses, step-ups, mini-squats, leg extensions, and hamstring curls with light weights, high repetitions. ?Repetitions should be smooth and slow and NOT explosive. ?May begin jump rope exercises. ?May advance to swimming. Endurance closed-chain quadriceps exercises should begin such as Stairmaster, stationary bike, elliptical sales trainer, [place] trac, etc. ?Focus on increasing endurance and should be performed 3 to 4 times per week. If a pool is available, swimming may started at 1 month Gait and range of motion should be normal by 4 weeks. ?If it is not, contact Dr. Calderon Begin slow jogging (if allowed) and progress to slow running on even ground or treadmill, no cutting, jumping or pivoting (once range of motion is full and patient has full quadriceps control and if impact exercises are allowed) 6 weeks to 3 months: 3 to 5 times a week home program. ?May need physical therapy supervision for functional training. Begin advanced strengthening with weights including leg presses, squats, leg curls, and lunges Initiate pylometric program as appropriate for patient's functional goals May begin functional training exercises including fast straight running, backward running, cutting, cross-overs, carioca, etc. if impact exercises allowed Begin gradual return to previous sports/activities/work duties under controlled conditions Full return to sports/activities/full work duties are pending Dr. Calderon's approval based upon the following criteria: Criteria for Return to Sports/Full Activities: Normal muscle strength in the involved lower extremity Jog and full speed run without a limp Full range of motion No effusion or quadriceps atrophy Referring Provider: DEBBIE CALDERON [[id number]] Allergies As of Date: 06/13/2018 Noted Allergy Reaction DEXTROMETHORPHAN 02/23/2011 16 - Unknown FENTANYL 01/04/2016 9 - Itching Comments: Pt. states almost ripped skin off post-op KETOROLAC 02/23/2011 16 - Unknown Comments: Motrin= home med PSEUDOEPHEDRINE 02/23/2011 16 - Unknown TAPE (ADHESIVE TAPE-SILICONES) 05/27/2018 14 - Other: See Comments Comments: PLASTIC TAPE Date Reviewed: 06/13/2018 Reviewed by: Stevenson Michele - Fully Assessed Primary Visit Diagnosis:S/P left knee open neuroma excision and arthroscopic fat pad debridement [Z98.890] Other Visit Diagnoses:Left anterior knee pain [M25.562] S/P arthroscopy of knee [Z98.890] Order(s):HYDROcodone-acetaminophen (NORCO) 5-325 mg per tabletTake 1-2 tablets by mouth every 6 hours as needed for up to 7 days.Disp: 42 tabletRfl: 0 Prescriptions as of 06/13/2018 Sig: NAPROSYN ORAL Take by mouth. HYDROCODONE 5 MG-ACETAMINOPHE* Take 1-2 tablets by mouth tyrone* ALBUTEROL INHALATION Inhale as instructed as need* Medication notes this encounter ALBUTEROL INHALATION >> Angeline Deluna RN 06/13/2018 12:00 PM >> ANGELINE DELUNA RN Loretta Jun 13, 2018 12:00 PM Not using. 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 S/P left knee open neuroma excision and arthros*INVALID FOR* Other instructions from your clinician: KNEE ARTHROSCOPY - PHYSICAL THERAPY PROTOCOL Post-operative Period 0 to 3 weeks: 2 to 3 visits per week, 5 times a week home program Prone lying, supine with logroll under heel, and gentle stretching to achieve full hyper-extension Quad sets, may use electrical stimulation, increase # visit/week if quad inhibited Patellar mobilizations, especially superiorly Straight leg raises, full arc quads without weights Prone knee flexion, heel slides, calf and hamstring stretching Icing program, 3 to 5 times a day, 30 minutes each after exercises Crutches may be stopped within 1 week as long as the patient has full extension, can perform a straight leg raise without an extension lag, and ambulates without a limp. ?Patients may be weaned to one crutch (opposite arm, after 3 weeks) in order to normalize gait (no limp) and as long as full extension and no extension lag with straight leg raises are obtained. Begin quad exercises including mini-squats, wall slide mini-squats, partial arc quads (60 to 90 degrees), and hamstring curls with light weights when range of motion is full Toe raises with weights, step-ups (begin with 2 inches and progress to a full step) Crutches should be weaned off in this stage, and gait should be normal - if not, contact Dr. Calderon 3 to 6 weeks: 2 to 3 visits per week, 5 times a week home program Continue all exercises in previous phase (as described above) Focus rehabilitation towards more closed-chain exercises including leg presses, step-ups, mini-squats, leg extensions, and hamstring curls with light weights, high repetitions. ?Repetitions should be smooth and slow and NOT explosive. ?May begin jump rope exercises. ?May advance to swimming. Endurance closed-chain quadriceps exercises should begin such as Stairmaster, stationary bike, elliptical sales trainer, [place] trac, etc. ?Focus on increasing endurance and should be performed 3 to 4 times per week. If a pool is available, swimming may started at 1 month Gait and range of motion should be normal by 4 weeks. ?If it is not, contact Dr. Calderon Begin slow jogging (if allowed) and progress to slow running on even ground or treadmill, no cutting, jumping or pivoting (once range of motion is full and patient has full quadriceps control and if impact exercises are allowed) 6 weeks to 3 months: 3 to 5 times a week home program. ?May need physical therapy supervision for functional training. Begin advanced strengthening with weights including leg presses, squats, leg curls, and lunges Initiate pylometric program as appropriate for patient's functional goals May begin functional training exercises including fast straight running, backward running, cutting, cross-overs, carioca, etc. if impact exercises allowed Begin gradual return to previous sports/activities/work duties under controlled conditions Full return to sports/activities/full work duties are pending Dr. Calderon's approval based upon the following criteria: Criteria for Return to Sports/Full Activities: Normal muscle strength in the involved lower extremity Jog and full speed run without a limp Full range of motion No effusion or quadriceps atrophy Prescriptions ordered this encounter Disp Refills Start End HYDROCODONE 5 MG-ACETAMINOPHEN 325 M* 42 t* 0 06/13/2018 06/20/2018 Class: Print RX Route: ORAL Sig: Take 1-2 tablets by mouth every 6 hours as needed for up to 7 days. Medications Discontinued During This Encounter HYDROcodone-acetaminophen (NORCO) 5-* 20 t* 0 05/27/2018 06/13/2018 Class: Print RX Route: ORAL Sig: Take 1-2 tablets by mouth every 6 hours as needed for up to 7 days. Disc: Reason for discontinue is not on file. Encounter Status:Closed by STEVENSON MICHELE PA-C on 06/13/18 PROGRESS Observed: 06/04/2018 Status: COMPLETED Source: [place] 10:11 AM [facility] [place] REPOSITORY [facility] ID: [id number] Author: Catie (Pt) Gaudencio Service: (none) Author Type: Physical Therapist Type: Progress Notes Filed: 06/04/2018 10:15 AM Note Text: Episode Visit Count: 1 Therapist That Will Oversee The Plan Of Care: Catie Lockett Start of Care Date: 06/03/18 Onset Date: 05/27/18 Plan of Care Certification Date: 06/03/18 Patient Identified by Name and Date of : Yes REHABILITATION AND SPORTS THERAPY PHYSICAL THERAPY EVALUATION PLAN OF CARE: Assessment: Wilfrid Pond presents with the diagnosis of s/p left knee arthroscopy with excision of neuroma. . She presents with impairments of decreased ROM, strength, functional status and gait deviation. She may benefit from skilled therapy services to improve deficits and return to prior functional level. Prognosis: Good Good due to: current objective clinical presentation;good overall health status Goals for Episode of Care: created on 06/03/18 through 07/03/18 Patient will decrease pain rating by 2 points to meet minimal clinical important difference for numeric pain rating scale. Patient will increase active ROM of left knee equal to right to allow pt to improved performance of ADLs and to normalize gait mechanics / gait pattern . Patient will increase strength of left LE to 5/5 to allow for return to prior functional status, normalized gait mechanics, perform ADLs and negotiate stairs. Perform ADL without pain. Normal gait. Reciprocal stair negotiation. Planned Interventions, Frequency, and Duration: Current Frequency: 2x/week Duration: 4 weeks Total Number of Visits Planned: 8 Planned Treatment Interventions: Therapeutic exercise;Neuromuscular re-education;Manual therapy;Patient/Family/Caregiver Education;Gait Training PLAN FOR NEXT VISIT: Will progress ROM and strengthening as tolerated. see protocol Patient demonstrates good understanding of plan of care and treatment. The above goals and plan of care were discussed and agreed upon by patient/family. SUBJECTIVE: Wilfrid Pond is a 32 year old female seen today for Pt notes that she is using walker for one day then stopped using. . Has been doing exs but was told by nurse to back off a little bit (Used walker for one day then stopped. ) Functional Limitations: walking in the community;stair negotiation;physical activities Prior Level of Function: Independent without limitations Patient Goals: return to full function without pain Intake Information: Prescription present Previous Treatment: Exercises per physician;Ice? 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 Pt to remove later today) Gait Weight Bearing Status: WBAT Gait: Independent Gait Device: None Gait Deviations: Left Lower Extremity Gait Deviations Left Lower Extremity: Weight bearing decreased;Stance time decreased;Heel strike during initial stance decreased;Push- off during terminal stance decreased ( decreased knee flexion intial phase of swing) LE AROM R Knee Extension: -14 Degrees (-9 in prone) R Knee Flexion: 82 Degrees LE Strength R LE Strength: 5/5 L LE Strength: deferred L Knee Extension Functional Strength (L3): fair quad contraction, no quad lag Functional Strength Functional Strength: limited d/t pain Education: Education Learning Preferences: Demonstration;Explanation;Performance;Printed Materials Barriers: None Learning/educational needs: Home exercise program;Plan of Care Education Provided: Yes, see treatment interventions for education provided Education Provided To: Patient Education Mode/Type: Demonstration;Explanation/Discussion;Literature/Printed Materials;Performance Response to Education/Teach Back: States/Identifies;Return Demonstration TREATMENT: Evaluation Therapeutic Exercise: 1: quad sets 1x10 2: SLR 1x10 3: ankle pumps 1x10 4: heelslides 1x10 supine 5: prone hang for extension with towel roll under thigh Skilled Intervention: Patient was educated in proper exercise technique and purpose for exercises. Skilled judgment was provided in selection of appropriate interventions. Provided written instruction for home exercise program to facilitate proper performance and compliance. Correct performance of therapeutic exercises was facilitated with verbal and visual cuing. Patient education as noted. Gait Trainin: with crutch on right level surface cues for sequence Skilled Intervention: Patient was provided stand by assist during pre-gait/gait training to prevent falls and insure safety. Facilitated proper gait cycle with the use of verbal and visual cues for correction of gait deviations identified in the objective section above. Assigned Home Exercise Program: 1: heelslides 1x10 supine 2: prone hang for extension with towel roll under thigh 3: continue to use crutch until able to ambulate with no gait deviation 4: complete stairs one step at a time Billing: [facility]: Evaluation - Low Complexity (47076) Therapeutic Exercise (97154): 1:1 time: 25 minutes (2 units: 23-37 mins) Gait Training (31496): 1:1 time: 5 minutes (no charge) Total time: 45 minutes Catie Lockett PT CNTHERAPY Observed: 06/03/2018 Status: COMPLETED Source: [place] 11:45 AM [facility] REPOSITORY OT/PT/Speech Visit (PTWS) WILFRID POND ([id number]) 1985 F Date Time Provider Department 06/03/18 11:45 AM CATIE LOCKETTPT) PTWS Date Time Provider Department Center 06/03/2018 11:45 AM [id number]-[facility] LOCKETTPT) PTISAEL [facility] Reason for Visit: PT Eval [287] Patient Education [91] Primary Visit Diagnosis:S/P left knee surgery [Z98.890] Allergies As of Date: 06/03/2018 Noted Allergy Reaction DEXTROMETHORPHAN 02/23/2011 16 - Unknown FENTANYL 01/04/2016 9 - Itching Comments: Pt. states almost ripped skin off post-op KETOROLAC 02/23/2011 16 - Unknown Comments: Motrin= home med PSEUDOEPHEDRINE 02/23/2011 16 - Unknown TAPE (ADHESIVE TAPE-SILICONES) 05/27/2018 14 - Other: See Comments Comments: PLASTIC TAPE Date Reviewed: 05/27/2018 Reviewed by: Anabela Calderon (Rn) SHAINA Sauceda - Fully Assessed Prescriptions as of 06/03/2018 Sig: NAPROXEN 500 MG TABLET Take 1 tablet by mouth twice * HYDROCODONE 5 MG-ACETAMINOPHE* Take 1-2 tablets by mouth tyrone* ALBUTEROL INHALATION Inhale as instructed as need* Progress Notes: Catie Lockett, PT 06/04/2018 10:15 AM Signed Episode Visit Count: 1 Therapist That Will Oversee The Plan Of Care: Catie Lockett Start of Care Date: 06/03/18 Onset Date: 05/27/18 Plan of Care Certification Date: 06/03/18 Patient Identified by Name and Date of : Yes REHABILITATION AND SPORTS THERAPY PHYSICAL THERAPY EVALUATION PLAN OF CARE: Assessment: Wilfrid Pond presents with the diagnosis of s/p left knee arthroscopy with excision of neuroma. . She presents with impairments of decreased ROM, strength, functional status and gait deviation. She may benefit from skilled therapy services to improve deficits and return to prior functional level. Prognosis: Good Good due to: current objective clinical presentation;good overall health status Goals for Episode of Care: created on 06/03/18 through 07/03/18 Patient will decrease pain rating by 2 points to meet minimal clinical important difference for numeric pain rating scale. Patient will increase active ROM of left knee equal to right to allow pt to improved performance of ADLs and to normalize gait mechanics / gait pattern . Patient will increase strength of left LE to 5/5 to allow for return to prior functional status, normalized gait mechanics, perform ADLs and negotiate stairs. Perform ADL without pain. Normal gait. Reciprocal stair negotiation. Planned Interventions, Frequency, and Duration: Current Frequency: 2x/week Duration: 4 weeks Total Number of Visits Planned: 8 Planned Treatment Interventions: Therapeutic exercise;Neuromuscular re-education;Manual therapy;Patient/Family/Caregiver Education;Gait Training PLAN FOR NEXT VISIT: Will progress ROM and strengthening as tolerated. see protocol Patient demonstrates good understanding of plan of care and treatment. The above goals and plan of care were discussed and agreed upon by patient/family. SUBJECTIVE: Wilfrid Pond is a 32 year old female seen today for Pt notes that she is using walker for one day then stopped using. . Has been doing exs but was told by nurse to back off a little bit (Used walker for one day then stopped. ) Functional Limitations: walking in the community;stair negotiation;physical activities Prior Level of Function: Independent without limitations Patient Goals: return to full function without pain Intake Information: Prescription present Previous Treatment: Exercises per physician;Ice? 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 Pt to remove later today) Gait Weight Bearing Status: WBAT Gait: Independent Gait Device: None Gait Deviations: Left Lower Extremity Gait Deviations Left Lower Extremity: Weight bearing decreased;Stance time decreased;Heel strike during initial stance decreased;Push- off during terminal stance decreased ( decreased knee flexion intial phase of swing) LE AROM R Knee Extension: -14 Degrees (-9 in prone) R Knee Flexion: 82 Degrees LE Strength R LE Strength: 5/5 L LE Strength: deferred L Knee Extension Functional Strength (L3): fair quad contraction, no quad lag Functional Strength Functional Strength: limited d/t pain Education: Education Learning Preferences: Demonstration;Explanation;Performance;Printed Materials Barriers: None Learning/educational needs: Home exercise program;Plan of Care Education Provided: Yes, see treatment interventions for education provided Education Provided To: Patient Education Mode/Type: Demonstration;Explanation/Discussion;Literature/Printed Materials;Performance Response to Education/Teach Back: States/Identifies;Return Demonstration TREATMENT: Evaluation Therapeutic Exercise: 1: quad sets 1x10 2: SLR 1x10 3: ankle pumps 1x10 4: heelslides 1x10 supine 5: prone hang for extension with towel roll under thigh Skilled Intervention: Patient was educated in proper exercise technique and purpose for exercises. Skilled judgment was provided in selection of appropriate interventions. Provided written instruction for home exercise program to facilitate proper performance and compliance. Correct performance of therapeutic exercises was facilitated with verbal and visual cuing. Patient education as noted. Gait Trainin: with crutch on right level surface cues for sequence Skilled Intervention: Patient was provided stand by assist during pre-gait/gait training to prevent falls and insure safety. Facilitated proper gait cycle with the use of verbal and visual cues for correction of gait deviations identified in the objective section above. Assigned Home Exercise Program: 1: heelslides 1x10 supine 2: prone hang for extension with towel roll under thigh 3: continue to use crutch until able to ambulate with no gait deviation 4: complete stairs one step at a time Billing: [facility]: Evaluation - Low Complexity ([id number]) Therapeutic Exercise (17377): 1:1 time: 25 minutes (2 units: 23-37 mins) Gait Training (21687): 1:1 time: 5 minutes (no charge) Total time: 45 minutes JAROCHO Renner PT 06/04/2018 10:16 AM Signed Addended by: CATIE LOCKETT PT on: 06/04/2018 10:16 AM Modules accepted: Orders ANES POST Observed: 05/27/2018 Status: COMPLETED Source: [place] 5:24 PM [facility] OTHER CAMPUS REPOSITORY O ID: [id number] Author: Byron Ledbetter Service: (none) Author Type: Physician Type: Anesthesia PostOp Filed: 05/27/2018 5:24 PM Note Text: POST ANESTHESIA EVALUATION NOTE SERVICE DATE: 05/27/2018 SERVICE TIME: 15:24 : 1985 Vitals: 05/27/18 1227 05/27/18 1452 05/27/18 1615 Temp: 36.5 ?C (97.7 ?F) 36.2 ?C (97.1 ?F) 36.2 ?C (97.2 ?F) 05/27/18 1515 05/27/18 1530 05/27/18 1545 05/27/18 1658 BP: 98/52 115/68 112/66 126/80 05/27/18 1530 05/27/18 1545 05/27/18 1615 05/27/18 1658 Pulse: 82 80 83 87 05/27/18 1530 05/27/18 1545 05/27/18 1615 05/27/18 1658 Resp: 20 22 16 16 05/27/18 1615 05/27/18 1630 05/27/18 1645 05/27/18 1658 SpO2: 94% 96% 95% 97% Validated Vital Signs: Yes POST ANES STATUS: No apparent anesthetic complications. The patient is appropriately hydrated with stable respiratory and cardiovascular status. Patient has safe and adequate airway control. The patient has appropriate pain relief and no significant post operative nausea or vomiting. The patient has achieved baseline mental status. Intra-Operative Events: No Significant Anesthesia Events Further assessment by Anesthesia Service: None Other Remarks: SIGNATURE: Byron Ledbetter MD PATIENT NAME: Wilfrid Pond DATE: May 27, 2018 TIME: 5:24 PM PAGER/CONTACT #: PT ED Observed: 05/27/2018 Status: COMPLETED Source: [place] 4:51 PM CLINIC OTHER CAMPUS REPOSITORY HNO ID: [id number] Author: Toma Rodriguez (Rn) SHAINA Benítez Service: Nursing Author Type: Registered Nurse Type: Patient Education Filed: 05/27/2018 4:52 PM Note Text: POST OP LEARNING RESPONSE INSTRUCTION PROVIDED TO: Patient and family member METHOD OF INSTRUCTION: Written instruction - handouts Verbal instruction Demonstration-Hands on Learning PATIENT / FAMILY RESPONSE: Verbalizes understanding of: EQUIPMENT USE-Correct use of Equipment INFECTION MANAGEMENT-Signs and symptoms of an infection and importance of contacting the physician MEDICAL REGIMEN-Importance of following prescribed medical regimen MEDICATION DOSE MISSED-Correct action to take if medication dose is missed MEDICATION PRESCRIBED-Accurate knowledge of prescribed medication prior to discharge MEDICATION ROUTE-Correct route for administration of the prescribed medication MEDICATION SIDE EFFECTS-Side effects associated with the medication that warrant a call to the physician PAIN MANAGEMENT-Effective strategies to manage pain in addition to pain medication POST-OPERATIVE INSTRUCTIONS-Correct actions to take to reduce postoperative complications PATIENT SAFETY PRINCIPLES FOLLOW-UP PLAN: Patient instructed to call with any further issues Follow-up with Primary Care Follow up phone call. SUPPLEMENTAL MATERIAL: None REFERRAL (RECOMMENDATION): None Electronically Signed By: Toma Benítez RN In Department: [facility] AMBUL[facility]ORY SURGERY - [facility] BRIEF OP NOT Observed: 05/27/2018 Status: COMPLETED Source: [place] 2:47 PM [facility] OTHER [place] REPOSITORY HNO ID: [id number] Author: Nickolas Matson Service: Orthopaedic Surgery Author Type: Resident Type: Brief Op Note Filed: 05/27/2018 2:47 PM Note Text: ORTHOPAEDIC SURGERY BRIEF OPERATIVE NOTE Patient Name: Wilfrid Lriftikhar Account #: Data Unavailable Date of Procedure: 05/27/2018 LOG ID: [id number] Incision/Procedure Start Time: 1:59 PM Incision Close/Procedure End Time: 2:37 PM Pre-Op/Pre-Procedure Diagnosis: Neuroma [D36.10]Left anterior knee pain [M25.562] Post-Op/Post-Procedure Diagnosis: Neuroma [D36.10]Left anterior knee pain [M25.562]Knee pain [M25.569] Surgeon(s) and Machine Joint Cutter(s): Surgeon(s) and Role: * Debbie Calderon - Primary * Junior Camp ([place]) Omar - Fellow * Nickolas Matson - Resident - Assisting No Additional Staff Procedure(s): Procedure(s) (LRB): EXCISION NEUROMA EXTREMITY LOWER (Left) ARTHROSCOPY KNEE, DIAGNOSTIC (Left) ARTHROSCOPY KNEE SYNOVECTOMY LIMITED (Left) Anesthesia: General Findings: See dictation Implant(s): * No implants in log * Estimated Blood Loss: 0 ml Specimen(s): Yes, neuroma was sent to surgical pathology Drains: None Complications: none Wilfrid Pond tolerated the procedure well and was returned to the recovery room in stable condition. Nickolas Matson DO Orthopedic Surgery Resident May 27, 2018 2:47 PM PT ED Observed: 05/27/2018 Status: COMPLETED Source: [facility] [place] 1:44 PM [facility] REPOSITORY HNO ID: [id number] Author: Nika Rubin) SHAINA Monzon Service: (none) Author Type: Registered Nurse Type: Patient Education Filed: 05/27/2018 1:44 PM Note Text: PRE OP LEARNING ASSESSMENT PROCEDURE/SURGERY: SURGERY: Lt knee scope READINESS TO LEARN COGNITIVE ABILITY: Alert and oriented MOTIVATION TO LEARN: Eager FAMILY SUPPORT: None - Unavailable/disinterested PATIENT LEARNS BEST BY: Individual Instruction FACTORS AFFECTING LEARNING: None PHYSICAL LIMITATIONS AFFECTING LEARNING: None Electronically Signed By: Nika Monzon RN In Department: [facility] SURGERY - [facility] OPERATIVE NO Observed: 05/27/2018 Status: COMPLETED Source: [facility] [place] 1:29 PM CLINIC OTHER CAMPUS REPOSITORY HNO ID: [id number] Author: Debbie Calderon Service: Orthopaedic Surgery Author Type: Physician Type: Operative Report Filed: 05/27/2018 3:42 PM Note Text: OPERATIVE REPORT Wilfrid Pond [id number] DATE OF PROCEDURE: May 27, 2018 SURGEON: Debbie Calderon MD CURRICULUM DEVELOPER: 1. Junior Nelson DO (Fellow) 2. Nickolas Matson DO (Resident) PREOPERATIVE DIAGNOSIS: 1. 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 Left knee fat pad impingement POSTOPERATIVE DIAGNOSIS: 1. 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 Left knee fat pad impingement OPERATION: 1. Left knee open excision of infrapatellar branch of the saphenous nerve neuroma 2. Left knee diagnostic arthroscopy and fat pad excision 3. Examination under anesthesia SPECIMEN: Suspected neuroma to path ANESTHESIA: General COMPONENTS: 1. None CLINICAL NOTE: Wilfrid Pond is a 32 year old female with left anterior knee pain. The patient has failed conservative management, and because of that we talked to the patient about operative intervention. We explained the risks, benefits, alternative procedures, expected outcomes, as well as the length of convalescence. Having understood that, informed consent has been signed. The patient's operative extremity was marked in the preoperative holding area. We palpated and marked the area of the palpable, painful cord. The patient received antibiotics by the anesthesia team without any complications. The patient was taken to the operating room on May 27, 2018 in stable condition. DESCRIPTION OF OPERATION: Once in the operating room, brief time-out was taken by nursing team, Anesthesia, and surgical staff, and confirming the patient's operative site was the left lower extremity. At this point in time, the patient was placed supine on operative table. All bony prominences were well padded. IV sedation was given to the patient. Once asleep, a laryngeal mask airway was inserted and general inhalation anesthetics were administered for duration of the case. At this point in time, examination under anesthesia revealed the following findings: 1. Knee range of motion: 0/0/135 degrees 2. No patellofemoral instability. 3. Negative Yung exam. 4. Negative posterior drawer. 5. Stable varus and valgus stress testing at 0 and 30 degrees. 6. Palpable cord of neuroma just beneath inferior pole of the patella. Following examination under anesthesia, patient's nonoperative leg was placed into an Sarabjit stirrup with femoral nerve free from traction, peroneal nerve free from pressure. At this point in time, the operative extremity was placed into a Ravtis leg mo with a nonsterile tourniquet applied to the upper thigh. At this point in time, the patient's operative extremity was then prepped and draped in the usual sterile fashion. We first performed the open portion of the procedure. An approximately 2 cm incision was made over the neuroma band and this was removed in its entirety for a few centimeters medial and lateral to the incision on skin. Portal sites were infiltrated with 0.25% Marcaine and epinephrine. At this point in time, inferomedial, inferolateral, and parapatellar tendon portals were established as well as superolateral outflow portal. Diagnostic arthroscopy was undertaken, revealing the following findings: 1. Patellar articular cartilage: Normal. 2. Trochlea articular cartilage: Normal. 3. Medial femoral condyle articular cartilage: Normal. 4. Medial meniscus: Normal. 5. Medial tibial plateau articular cartilage: Normal. 6. Anterior cruciate ligament: Normal. 7. Posterior cruciate ligament: Normal. 8. Lateral femoral condyle articular cartilage: Normal. 9. Lateral meniscus: Normal. 10. Lateral tibial plateau articular cartilage: Normal. 11. Abundant, impinging fat pad. Following our diagnostic arthroscopy, we performed an extensive fat pad excision in the infrapatellar region. Wounds were copiously irrigated. Wounds were closed in layers. The patient was placed into a sterile, compressive bandage. The patient was awakened from anesthesia and taken to the PACU in stable condition. It should be noted that I was present for and performed all [place] portions of the procedure. It should be noted that the resident/fellow physician on the procedure was involved with assistance with patient positioning, prepping and draping as well as wound closure. All operative times are per the [facility] brief operative note. POSTOPERATIVE PLAN: The patient will be weight bearing as tolerated with the left lower extremity. The patient will follow our general knee arthroscopy program. Wilfrid Pond will be seen approximately 1 week post surgery by the RN or PAPravinC for wound check and dressing changes. Debbie Calderon MD ANES PREOP Observed: 05/27/2018 Status: COMPLETED Source: [facility] [place] 12:53 PM [facility] OTHER CAMPUS REPOSITORY O ID: [id number] Author: Byron Ledbetter Service: (none) Author Type: Physician Type: Anesthesia PreOp Filed: 05/27/2018 12:54 PM Note Text: ANESTHESIOLOGY DAY OF SURGERY NOTE SERVICE DATE: 05/27/2018 SERVICE TIME:12:53 : 1985 Procedure(s) (LRB): EXCISION NEUROMA EXTREMITY LOWER (Left) ARTHROSCOPY KNEE, DIAGNOSTIC (Left) ARTHROSCOPY KNEE SYNOVECTOMY LIMITED (Left) Surgeon(s): Debbie Camp (Res) Omar Matson Estimated body mass index is 33.15 kg/m? as calculated from the following: Height as of this encounter: 172.7 cm (5' 8). Weight as of this encounter: 98.9 kg (218 lb). 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 Left Anterior Knee Pain Knee Pain PAST MEDICAL HISTORY Diagnosis Date - Hypoglycemia, unspecified - Migraines - Unspecified asthma(493.90) PAST SURGICAL HISTORY Procedure Laterality Date - ABDOMINAL SURGERY HX 2008 gastric diverticulum resection - CHOLECYSTECTOMY HX - DANDC, DIAG AND/OR THERAPEUTIC 08/15 - HYSTERECTOMY HX 2011 - INCIS TENDON SHEATH,RADIAL STYLOID Right 12/17/2015 Right 1st dorsal compartment release - KNEE SURGERY HX Right x 2 - REMOVAL OF OVARY(S) Right - TUBAL LIGATION FAMILY HISTORY Problem Relation Age of Onset - No Known Problems Mother Social History: Social History Substance Use Topics - Smoking status: Current Every Day Smoker Packs/day: 0.50 Types: Cigarettes Start date: 05/24/2001 - Smokeless tobacco: Never Used Comment: Has quit multiple times - Alcohol use No No current facility-administered medications on file prior to encounter. Current Outpatient Prescriptions on File Prior to Encounter: ALBUTEROL INHALATION Inhale as instructed as needed. meloxicam (MOBIC) 15 mg tablet Take 1 tablet by mouth once daily. (Patient not taking: Reported on 08/21/2017) Current Facility-Administered Medications: lidocaine 10 mg/mL (1 %) 1-2 mg injection (XYLOCAINE) 0.1- 0.2 mL INTRADERMAL PRN Colon ([employer]) Sinha lactated ringers infusion 5-30 mL/hr INTRAVENOUS CONTINUOUS Colon ([employer]) Sinha ceFAZolin iv piggyback 2 g in D5W (iso-osmotic) 100 mL (ANCEF) 2 g INTRAVENOUS Pre-Op Once Colon ([employer]) Sinha Allergies: ALLERGIES Allergen Reactions - Dextromethorphan Unknown - Fentanyl Itching Pt. states almost ripped skin off post-op - Ketorolac Unknown Motrin= home med - Pseudoephedrine Unknown DOS EXAM: Adequate NPO status: Yes Anesthetic risks, benefits, alternatives, personnel and consent discussed: Yes Patient agrees to proceed: Yes Previous Anesthesia: No history of adverse event. Airway Assessment: MP 2; Neck ROM: Full ROM without neurologic symptoms; Airway Evaluation: Short Neck and Thick neck Symptoms of Sleep Apnea: Snoring, Age over 50 (32 year old) and Neck circumference > 15.75 inches Dentition: Poor dentition Chipped, loose and/or missing Additional Physical Exam: Lungs: normal vesicular breath sounds Cardiac: normal S1 and S2; no rubs, no murmurs, and no gallops Additional Pertinent Findings: N/A Blood Products: Not anticipated for this procedure. Anesthetic Plan: General, Standard ASA Monitors Pain Management Plan: Parenteral or Oral ASA Class: 2 Other Medical Problems: None Chronic Beta Felecia medication administered within 24 hours: N/A I have interviewed and examined the patient. I have reviewed the medical record and/or the pre-anesthesia evaluation, pertinent labs, and test results. Significant changes in the patient's condition since the History and Physical, not otherwise documented in primary service progress notes: No This contains updated information obtained within 48 hours of Surgery/Procedure. SIGNATURE: Byron Ledbetter MD PATIENT NAME: Wilfrid Pond DATE: May 27, 2018 TIME: 12:53 PM CSN: [id number] SURGICAL PATHOLOGY Observed: 05/27/2018 Status: F Source: [facility] [place] 12:00 AM [facility] OTHER CAMPUS REPOSITORY Specimen #: [id number] Submitting Physician: DEBBIE CALDERON FINAL DIAGNOSIS Soft tissue, left knee, excision - Fibroadipose tissue and multiple bundles of nerve, consistent with neuroma. JRG/SHEA/charlene 05/30/2018 Main Brizuela M.D. (Electronic Signature) SPECIMEN SUBMITTED A: LEFT KNEE NEUROMA CLINICAL DATA D36.10, M25.569 GROSS DESCRIPTION A. Received in formalin labeled left knee neuroma are multiple segments of boyce-white fibrous tissue aggregating to 2.3 x 1.9 x 0.7 cm. The specimen is totally submitted in formalin in cassette A1. RYAN/khang 05/28/2018 Gross examination performed at [facility], [address] [place] [address] Date of Report: 05/30/2018 Date of Procedure: 05/27/2018 Date of Receipt: 05/27/2018 Submitted by: DEBBIE CALDERON Location: [facility] Diagnostic interpretation performed at [facility], [address], [facility] [address]. NURSING PROG Observed: 05/24/2018 Status: COMPLETED Source: [facility] [place] 10:44 AM [facility] REPOSITORY HNO ID: [id number] Author: Bria Ramos RN Service: (none) Author Type: Registered Nurse Type: Nursing Progress Note Filed: 05/24/2018 10:48 AM Note Text: PACC Nurse Progress Note History AND Physical: PACC Visit Date: 05/24/2018 Original HANDP Date: 05/24/2018 ED visit Date: N/A Outside HANDP Scanned Date: N/A Labs Within Last 6 Months: N/A Imaging Within Last 12 Months: MRI Left Knee: 02/01/2018 - Report Scanned in [facility] 04/19/2018 X-ray Left Knee: Date 10/29/2017 Report Scanned in [facility] 04/19/2018 Cardiac Testing: EKG in last 12 Months: No, Comment: Date: 08/13/2018, Image scanned in [facility] 12/02/2017, Results in [facility] Last Menstrual Period: LMP Date: Not recorded. Postmenopausal >1yr: Yes, S/P Hysterectomy: Yes BMI Percentile (PEDS):N/A BMI 33.31 kg/(m2). Risk Assessment: N/A Anesthesia Review: N/A Narrative: N/A Pre-op Considerations: Per HPI: Asthma - Condition is stable; hasn't used an inhaler in years. Current smoker Chart Check: COMPLETED Bria Ramos RN May 24, 2018 10:44 AM HISTORY PHYSICAL Observed: 05/24/2018 Status: COMPLETED Source: [facility] [place] 9:45 AM [facility] REPOSITORY HNO ID: [id number] Author: Alice Bone Service: (none) Author Type: Nurse Practitioner Type: HANDP Filed: 05/24/2018 10:25 AM Note Text: HISTORY AND PHYSICAL EXAMINATION SERVICE DATE: 05/24/2018 SERVICE TIME: 9:45 AM PRIMARY CARE PHYSICIAN: No primary care provider on file. REASON FOR VISIT: Wilfrid Pond is a 32 year old female who is scheduled for LEFT KNEE EXCISON OF INFRAPATELLAR BRANCH SAPHENOUS NERVE NEUROMA AND DIAGNOSTIC ARTHROSCOPY WITH POSSIBLE FAT PAD DEBRIDEMENT at the request of Dr. Debbie Calderon for consultation. My final recommendation will be communicated back to the requesting physician by way of shared medical record or letter. 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 Patient had a fall in October of this year and has had knee issues ever since. She has tried injections and PT without much relief. Pain is constant and can be stabbing/burning in sensation. Pain is aggravated by standing, sitting or walking for too long. Alleviated very little with medication and rest. Does interfere with sleep. Denies radiating pain. Has noticed some swelling. PAST MEDICAL HISTORY Diagnosis Date - Hypoglycemia, unspecified - Migraines - Unspecified asthma(493.90) PAST SURGICAL HISTORY Procedure Laterality Date - ABDOMINAL SURGERY HX 2007 gastric diverticulum resection - CHOLECYSTECTOMY HX - DANDC, DIAG AND/OR THERAPEUTIC 08/15 - HYSTERECTOMY HX 2011 - INCIS TENDON SHEATH,RADIAL STYLOID Right 12/17/2015 Right 1st dorsal compartment release - KNEE SURGERY HX Right x 2 - REMOVAL OF OVARY(S) Right - TUBAL LIGATION FAMILY HISTORY Problem Relation Age of Onset - No Known Problems Mother SOCIAL HISTORY: Social History Marital status: Legally Spouse name: Years of education: Number of children: Social History Main Topics Smoking status: Current Every Day Smoker Packs/day: 0.50 Years: 0.00 Types: Cigarettes Start date: 05/24/2001 Smokeless tobacco: Never Used Comment: Has quit multiple times Alcohol use: No Drug use: No Sexual activity: Yes Partners with: Male Prior to Admission medications as of 05/24/18 1005 Medication Sig Last Dose Taking ALBUTEROL INHALATION Inhale as instructed as needed. meloxicam (MOBIC) 15 mg tablet Take 1 tablet by mouth once daily. Patient not taking: Reported on 08/21/2017 Not Taking No medication comments found. ALLERGIES Allergen Reactions - Dextromethorphan Unknown - Fentanyl Itching Pt. states almost ripped skin off post-op - Ketorolac Unknown Motrin= home med - Pseudoephedrine Unknown REVIEW OF SYSTEMS: PAIN ASSESSMENT: Pain Pain Score: 6/10 Pain Location: Knee-Left Description: Aching Frequency: Continuous Intervention: Medication;Reposition;Relaxation General: No weight loss, malaise or fevers. Neuro: Postive for Migraines - come and go on random occasion, no known triggers. Denies TIAs, strokes, seizures or impaired sensorium. Respiratory: Positive for Asthma - hasn't used an inhaler in years. (+) Current smoker - 0.5 ppd since 16 yo. Denies SOB with activity. No recent bronchitis or pneumonia. Cardiovascular: No history of HTN requiring medication, no history of angina, CHF, VA, cardiac surgery or stents. Denies rest pain, gangrene or revascularization/amputation for PVD. No history of cardiovascular symptoms or problems. GI: No history of GI symptoms or problems. No history of esophageal varices, recent ascites, or ETOH greater than 2 drinks per day. : No history of dysuria, frequency or incontinence,, stones or chronic kidney disease, No difficulty urinating, nocturia > 1 time per night or hematuria. GERIATRIC CASE MANAGER: Negative for abnormal vaginal bleeding, abnormal vaginal discharge. : Hysterectomy in 2010 Endocrine: No history of diabetes. Has not taken steroids within the past 30 days. No history of endocrinological symptoms or problems. Hematology: No history of bleeding or clotting disorder. Pt is not taking anti-coagulation or platelet medications. No history of hematological symptoms or problems. Oncology: No history of CA metastasis, chemo within 30 days, or radiotherapy within 90 days. Has not lost 10% of body wt in 6 months. No history of oncological symptoms or problems. Psych: No history of psychiatric symptoms or problems. Musculoskeletal: See HPI. Denies additional joint pain. No swelling of extremities. Skin: Negative for lesions, rash and itching. Objective PHYSICAL EXAM: VITALS: BP 111/59 Pulse 87 Temp (Src) 98 (Tympanic) Resp 16 Ht 5' 8 (1.73m) Wt 219 lb (99.3kg) SpO2 93% BMI 33.31 kg/(m2). General: Alert and oriented, No acute distress, Obese Skin: Normal color, no rash, no lesions. HEENT: Pupils equal, round and reactive., No carotid bruits Cardiovascular: Normal S1 AND S2, no rubs, murmurs or gallops. No JVD. Pulse regular. Lungs: Normal breath sounds, no wheezes or crackles., No chest deformities or chest wall tenderness. Abdomen: Soft, non-tender, no rigidity., No masses or organomegaly. Extremities: No deformity, no edema or tenderness, no joint swelling or clubbing. Neurological: Normal cognition and motor skills. Gait normal. No weakness or sensory deficit. Pulses: Carotid and radial pulses normal +2. Diagnostic tests reviewed for today's visit: Lab Value Units Date High Low HB No results within date range. HCT No results within date range. WBC No results within date range. PLT No results within date range. NA No results within date range. K No results within date range. GLUC No results within date range. BUN No results within date range. CREAT No results within date range. PTSEC No results within date range. INR No results within date range. APTT No results within date range. ALT No results within date range. AST No results within date range. TBILI No results within date range. TSH No results within date range. Lab Value Units Date High Low HCGQT No results within date range. UHCG No results within date range. HCG, BODY* No results within date range. Lab Value Units Date High Low ABORHD No results within date range. ABSCREEN No results within date range. Hemoglobin A1C (%) Date Value 10/04/2009 4.9 Most recent labs Most recent imaging Most recent EKG Most recent Echo Assessment ASSESSMENT Asthma - Condition is stable; hasn't used an inhaler in years. Current smoker METS: Run a short distance (8.00 METs) Patient denies any chest pain or undue shortness of breath with the above physical activity. ASA Class: 2 ANESTHESIA FINDINGS: Intubation History: No history of difficult intubation Significant Anesthesia Considerations: None Airway Exam: General: Obese Mallampati Score is CLASS II ULBT: Class I - Lower incisors can bite the upper lip above the phillip line Neck: Normal appearance and function, Distance from hyoid to mentum during neck extension is at least 3 finger breaths Mouth: Normal tongue size and Mouth opening greater than 2 finger breaths Dentition: Intact Airway History: No abnormal airway history STOP BANG Score: Criteria: Snoring Score = 1 PLAN This patient is optimally prepared for surgery. CONSULTS: Patient does not require consults for optimization at this time. The Following Tests/Procedures Have Been Initiated: Labs not indicated per PACC protocol, EKG not indicated per [facility] protocol Planned Anesthetic: General Instructions Given to Patient: Patient given verbal and written preop instructions and voices comprehension and compliance. SIGNATURE: Alice Bone APRN.CNP PATIENT NAME: Wilfrid Pond DATE: May 24, 2018 TIME: 9:45 AM PAGER/CONTACT #: HOSP Observed: 05/21/2018 Status: COMPLETED Source: [facility] [place] 12:00 AM CLINIC OTHER CAMPUS REPOSITORY Patient:Wilfrid Pond MRN: <[id number]> Height:5' 8(1.727 m) Weight:219 lb (99.338 kg) Outpatient Medications as of 05/27/18: ALBUTEROL INHALATION meloxicam (MOBIC) 15 mg tablet Admission/Clinic Administered Medications as of 05/27/18: lidocaine 10 mg/mL (1 %) 1-2 mg injection (XYLOCAINE) lactated ringers infusion ceFAZolin iv piggyback 2 g in D5W (iso-osmotic) 100 mL (ANCEF) scopolamine 1 mg over 3 days 1 Patch (TRANSDERM-SCOP) scopolamine - VERIFY patch scopolamine - REMOVE PATCH midazolam (PF) 2 mg injection (VERSED) Problem List: Carpal tunnel syndrome, right [G56.01] Right wrist tendonitis [M77.8] De Quervain's tenosynovitis [M65.4] Mild intermittent asthma without complication [J45.20] Anxiety [F41.9] Patellar tendonitis of left knee [M76.52] Extensor intersection syndrome of right wrist [M65.831] Neuroma [D36.10] Left anterior knee pain [M25.562] Knee pain [M25.569] Allergies: Dextromethorphan Fentanyl Ketorolac Pseudoephedrine Date Verified: 05/27/18 Lab Values No results within the last 30 days for the following basenames: K,HCT Progress Notes ([facility]): Juana Andersen, RN, RN 05/21/2018 3:22 PM Signed ORTHO CARE COORDINATION QUICK NOTE Patient has been identified by name and date of : No Called and left vm for patient. Offered the following surgery dates: 05/27, 06/03, 06/10, 06/12, 06/17, 06/24 or 06/26. If she wants 05/27, advised I will have [facility] call her and schedule. Pre op instructions were given at [facility]. Post op PT at [facility] unless she prefers a different location. SHAINA Pisano 05/21/2018 3:32 PM Signed Patient called back would like to take 05/27 as surgery date. Juana Andersen RN, RN 05/21/2018 4:06 PM Signed ORTHO CARE COORDINATION QUICK NOTE Patient has been identified by name and date of : No Episode/ orders created and routed. E-mail sent to [facility] to schedule PAT. Juana Andersen RN Progress Notes ([facility]): Debbie Calderon MD 05/17/2018 4:45 PM Signed Referral from Dr. Wilkerson Attending Attestation: I have seen and evaluated this patient. I agree with the impression and plan of care as outlined in the resident's note. Significant left knee pain and difficulty obtaining extension. She has no history of major knee pain prior to her injury. She had a fall and has predominantly anterior and lateral knee pain. On exam she has significant irritability of her subcutaneous tissues and her patella. Most of her pain tends to be over a palpable cord over the prepatellar region. She has exquisite pain and a positive Tinel's in this area. I think this represents a neuroma of one of the branches of the saphenous nerve. I've explained to her that I see this a few times a year. Her picture is a bit atypical for this and I think mainly due to contusion. She has pain but does not have any apprehension. No history of patellofemoral instability. MRI from an outside hospital is negative. I have discussed the risks, benefits, alternative procedures, expected outcomes and the length of convalescence. We have also discussed operative versus nonoperative management. Wilfrid Simms Irena understands and would like to proceed with surgical intervention. The plan will be for left knee open excision of infrapatellar branch saphenous nerve neuroma and diagnostic arthroscopy with possible fat pad debridement. Preoperative antibiotics. No nerve block. MD Tania Everett 05/17/2018 11:08 AM Signed SURGERY INFORMATION You have been scheduled for Outpatient surgery with Dr. Debbie Calderon. Office Contact: Catie Sandoval, Adminstrative Machine Joint Cutter/ Juana Andersen RN-BC, BSN [facility], [facility] [address] Wilfrid Pond [id number] Surgery Date: Procedure: Left knee arthroscopy, possible fat pad debridement and open excision of prepatellar neuroma TO DO LIST: [employer] online questionnaire (prior to PAT appointment) Schedule pre-admission testing (PAT) Call to schedule physical therapy Call to schedule crutch training before surgery - YOUR SURGERY MAY BE CANCELLED IF YOU HAVE NOT RECEIVED CRUTCH TRAINING!!!!! (This is applicable if you have not used crutches in the past or are not well-versed in doing so IMPORTANT!! Please let Dr. Calderon's community youth secretary ([phone]) know if you will need a letter for school, work or excusing you from any activities such as sports participation. [employer] on line questionnaire: this is required by anesthesia to help direct your periopertive care. Please go to [email or web address] to complete the following online questionnaire as soon as possible LOGIN CODE (4 letters, 4 numbers): [id number] PRE-OPERATIVE TESTING (PAT): You are required to have pre-admission testing including History and Physical Exam within 30 days of your surgery. Please call [phone] to arrange this appointment. This MUST be completed BEFORE surgery Testing will include a History and Physical Exam and may include laboratory studies, EKG, X-ray, Physical Therapy and medical, cardiac or vascular clearance if needed. PHYSICAL THERAPY: Please call [phone] to schedule at a location of your choice Before Surgery: Lower extremity surgery - If you have not been instructed on crutch use schedule 1 visit before surgery at a facility of your choice to meet with a physical therapist for crutch fitting/ training and exercise instruction. Call Rehabilitation and Sports Therapy: [phone] to make an appointment for the fitting, dispensing, and instruction in the use of crutches PRIOR to your surgery date. (YOUR SURGERY MAY BE CANCELLED IF YOU DO NOT HAVE CRUTCH TRAINING). The agent will assist you in selecting the location and specialty service that will best meet your needs. If you know how to use crutches but do not have them, you will provided with a pair at the surgery center the day of your surgery. After Surgery: Make this appointment before your surgery. You will be give an updated prescription the day of surgery. Your physical therapy start date is as follows: Left Knee arthroscopy/ACL reconstruction: 3-5 days post op Ankle removal of painful hardware: within one week of surgery ORIF ankle syndesmosis: 1 week post op SURGERY LOCATION: [facility]/ [facility] [place] [address] . Registration: [phone] Financial Counselor: Last name ends with A to K- [phone] Last name ends with L to Z- [phone] SURGERY TIME: You will contacted after 3:00 PM the business day before your surgery with your arrival time. If your surgery is on a Sunday, you will receive a call with your arrival time on Sunday afternoon. Transportation: You will need to have someone drive you home from your surgery and stay with you for 24 hours. You will not be permitted to take a taxi, public transportation or drive yourself home. Anesthesia: You will have General anesthesia for the surgery, which means you will be completely asleep. Shoulders, ACL reconstructions and some other knee procedures may also receive a nerve block. This means you will receive an injection into/ around the nerve that supplies feeling to the operative extremity. The nerve block will provide pain relief after surgery for up to 16 to 24 hours. Anesthesia will talk to you about this the day of surgery. NOTHING to EAT or DRINK after Midnight the NIGHT BEFORE THE SURGERY including water, chewing gum, hard candy AND breath mints. If you do it is likely your surgery will be cancelled. You may brush your teeth, but do not swallow any water. STOP taking Aspirin, NSAIDs (nonsteroidal anti-inflammatory), Anticoagulants, vitamins and herbal medications 7 DAYS PRIOR TO SURGERY. This includes but is not limited to (Ibuprofen, Motrin, Advil, Aleve, Anaprox, Naprosyn), herbal supplements, glucosamine, diet pills, cilostazol (Pletal), clopidogrel (Plavix), warafin (Coumadin), Mobic (meloxicam), Relafen (nabumetone), Daypro (oxaprozin) Feldene (piroxicam) and vitamin E. You may take Tylenol (acetaminophen) up until midnight the night before your surgery. You may resume your medications after surgery. Other medications that are allowed to be taken before surgery will be discussed at your pre operative testing appointment. Examples of medications to take the morning of surgery are Beta Blockers for blood pressure, inhalers and medication for gastric reflux MINIMIZE RISK SURGICAL SITE INFECTIONS: Notify the office: If you are prescribed an ANTIBIOTIC and will not be finished with it 2 weeks prior to surgery notice cuts, scrapes, blemishes, bug bites on operative extremity Become ill or develop any change in your health prior to your surgery. This includes minor conditions such as a cold, cough, or scrape on the operative extremity. WASH with Hibiclens or an antibacterial soap the night before and the morning of surgery. Keep soap/ hibiclens away from eyes, face and genital areas as it is drying and can damage the tissues. DO NOT APPLY LOTION Antibiotic: You will receive a dose of an antibiotic through your IV just before your surgery and for open cases a dose of an antibiotic prior to discharge. You will not be given a prescription for an antibiotic after surgery. Hair removal: hair around the surgical area will be shaved with clippers at the surgery center the morning of surgery Wound Care/ Incisions: Operative bandage/ dressing are usually removed 3 (three) days after your surgery. Leave the small white tapes across the incision in place. DO NOT get the incision wet. (cover with press and seal, plastic wrap or water proof band aids - remove after showering) Sutures will be removed at your 1st post op visit, approximately 2 weeks after surgery. THE DAY OF SURGERY: DO NOT APPLY: Lotions or Deodorant (upper extremity surgery only) and minimize the use of make up . Before leaving home: Remove contacts, all jewelry and body piercing. Leave all valuables at home. Wear loose-fitting clothing to accommodate bulky dressing or braces that may you may be wearing post op. Sweat pants, shorts and loose fitting tops that zip or button in the front will be easiest to put on after your surgery. DO NOT take oral glucose-lowering agents or RODNEY inhibitors (such as captopril [Capoten], enalapril [Vasotec], lisinopril [Prinivil, Zestril], quinapril [Accupril]). Insulin will need to be adjusted or withheld. BRING CRUTCHES (lower extremity surgery only) AFTER SURGERY: Follow up: Your first post op appointment will be scheduled for you approximately 7-10 days following your procedure. This will be scheduled for you. You will be provided with immediate home-going instructions before leaving the surgery center after your surgery. Pain Control: You will be given a prescription for pain medication on the day of surgery. It is important that you DO NOT drive or operate machinery while taking these medications as they make you drowsy. Recommend you take OTC stool softener or miralax while taking narcotic pain medication. You may also receive a prescription for an anti-inflammatory or instructed to take and OTC 325 mg aspirin. This is determined on an individual basis. Ice: you may be given an ice wrap or iceman cooling unit the day of surgery, otherwise you can use ice as needed. You may use frequently for the first 48-72 hours. Then use ice/iceman 4-5 times per day for 20 minutes at a time. Do not apply ice/ iceman to bare skin. This will assist with pain control. Driving: prior to driving you must be off narcotic medications, out of sling or brace, off crutches (for right lower extremity) and have good leg control. iDo Reilly DO 05/17/2018 4:45 PM Signed This is a consultation note. Patient seen at the request of: Dr. Wilkerson History of present illness: Wilfrid Pond is a 32 year old female who comes in today with a chief complaint of left knee pain . This pain has been present for 8 months . This occurred with the following preceding injury: Fall directly onto front of left knee . Patient has mild daily swelling. + popping/clicking. + locking. + giving way. + night pain. Prior treatment: has had multiple rounds of PT (x2) for 3 months. Had been seen by [facility] and MRI was also completed after PT was ineffective. Was seen by Dr. Wilkerson and underwent corticosteroid injection 1 month ago with only 12 hours pain relief. Bracing was ineffective. Had some relief with lateral-sided taping. Physical Examination: This is a well appearing, well nourished patient in no acute distress. Patient's head is normocephalic and atraumatic. Patient has white sclera and pink conjunctiva. Mucous membranes are moist. Patient breathes easily and has normal chest wall excursion. Patient has an appropriate affect. Body habitus normal . Focused exam of the knee: antalgic gait. Knee alignment: neutral . Range of motion is 5-100 . + Apprehension. Minimal effusion. No medial joint line pain on palpation. + lateral joint line pain on palpation. No pain over the MCL. No pain over the lateral ligamentous structures. Yung's negative . Posterior drawer negative . No laxity on varus stress testing. No laxity on valgus stress testing. Lamar's negative . She has significant TTP along medial and lateral patellar facets, as well as medial and lateral trochlear grooves. Significant TTP over patellar tendon. Imaging: X-rays and MRI do not show significant pathology with stabilizing structures. 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 Plan: 1. Return to clinic post-op . 2. Physical therapy recommendation: N/A 3. Pharmacologic treatment: Continue with current OTC medications 4. Bracing: N/A 5. Other recommendations: At this time we discussed that given her lack of relief of symptoms after multiple PT courses, as well as activity modification and NSAID therapy, we would recommend surgical intervention for removal of infrapatellar neuroma as well as diagnostic arthroscopy of the left knee. Risks, benefits, possible complications were discussed and patient would like to proceed. Consent was obtained and can be found in EMR. We will see her on the day of surgery. DO LAUREEN El Observed: 05/21/2018 Status: COMPLETED Source: [place] 12:00 AM [facility] REPOS[facility] Telephone ([facility]) ESWILFRID BUITRAGO ([id number]) 1985 F Date Time Provider Department 05/21/18 DEBBIE CALDERON [facility] During your visit today, we recorded the following information about you: Juana Andersen RN, RN 05/21/2018 3:22 PM Signed ORTHO CARE COORDINATION QUICK NOTE Patient has been identified by name and date of : No Called and left vm for patient. Offered the following surgery dates: 05/27, 06/03, 06/10, 06/12, 06/17, 06/24 or 06/26. If she wants 05/27, advised I will have [facility] call her and schedule. Pre op instructions were given at [facility]. Post op PT at [place] unless she prefers a different location. SHAINA Pisano 05/21/2018 3:32 PM Signed Patient called back would like to take 05/27 as surgery date. Juana Andersen RN, RN 05/21/2018 4:06 PM Signed ORTHO CARE COORDINATION QUICK NOTE Patient has been identified by name and date of : No Episode/ orders created and routed. E-mail sent to [facility] to schedule PAT. Juana Andersen RN Allergies As of Date: 05/21/2018 Noted Allergy Reaction DEXTROMETHORPHAN 02/23/2011 16 - Unknown FENTANYL 01/04/2016 9 - Itching Comments: Pt. states almost ripped skin off post-op KETOROLAC 02/23/2011 16 - Unknown Comments: Motrin= home med PSEUDOEPHEDRINE 02/23/2011 16 - Unknown Date Reviewed: 05/17/2018 Reviewed by: Tania Frias - Fully Assessed Reason for Visit: Schedule Surgery [1330] Visit Diagnoses:Neuroma [D36.10] Left anterior knee pain [M25.562] Order(s):SURGICAL REQUEST - ELECTIVE [1415362] Order #: [id number]: 1 CONSULT TO PHYSICAL THERAPY [9032] Order #: [id number]: 1 [facility] PRE-OP CRUTCH TRAINING [7931394] Order #: [id number]: 1 Prescriptions as of 05/21/2018 Sig: ALBUTEROL INHALATION Inhale as instructed as need* PREDNISONE 10 MG TABLET Take 6 pills (all at once) on* MELOXICAM 15 MG TABLET Take 1 tablet by mouth once d* MELOXICAM 15 MG TABLET Take 1 tablet by mouth once d* Patient not taking: Reported on 08/21/2017 HYDROCODONE 5 MG-ACETAMINOPHE* Take 1 tablet by mouth every * Patient not taking: Reported on 05/30/2016 GABAPENTIN 100 MG CAPSULE Take 1 capsule by mouth three* HYDROCODONE 5 MG-ACETAMINOPHE* Take 1 tablet by mouth every * PREDNISONE 10 MG TABLETS IN A* Take 6 pills (all at once) on* PAROXETINE 30 MG TABLET Take 1 tablet by mouth once d* Problem List As Of Date 05/21/2018 Noted Resolved Carpal tunnel syndrome, right [G56.01] INVALID FOR* Right wrist tendonitis [M77.8] INVALID FOR* De Quervain's tenosynovitis [M65.4] INVALID FOR* Mild intermittent asthma without complication [*INVALID FOR* Anxiety [F41.9] INVALID FOR* Patellar tendonitis of left knee [M76.52] INVALID FOR* Extensor intersection syndrome of right wrist [*INVALID FOR* Neuroma [D36.10] INVALID FOR* Left anterior knee pain [M25.562] INVALID FOR* Knee pain [M25.569] INVALID FOR* More... Follow-up and Disposition History Recorded Encounter Status:Closed by JHONNY SINHA CNP on 05/21/18 PROGRESS Observed: 05/17/2018 Status: COMPLETED Source: [place] 11:07 AM [facility] ID: [id number] Author: Dio Reilly Service: (none) Author Type: Resident Type: Progress Notes Filed: 05/17/2018 4:45 PM Note Text: This is a consultation note. Patient seen at the request of: Dr. Wilkerson History of present illness: Wilfrid Pond is a 32 year old female who comes in today with a chief complaint of left knee pain . This pain has been present for 8 months . This occurred with the following preceding injury: Fall directly onto front of left knee . Patient has mild daily swelling. + popping/clicking. + locking. + giving way. + night pain. Prior treatment: has had multiple rounds of PT (x2) for 3 months. Had been seen by [facility] and MRI was also completed after PT was ineffective. Was seen by Dr. Wilkerson and underwent corticosteroid injection 1 month ago with only 12 hours pain relief. Bracing was ineffective. Had some relief with lateral-sided taping. Physical Examination: This is a well appearing, well nourished patient in no acute distress. Patient's head is normocephalic and atraumatic. Patient has white sclera and pink conjunctiva. Mucous membranes are moist. Patient breathes easily and has normal chest wall excursion. Patient has an appropriate affect. Body habitus normal . Focused exam of the knee: antalgic gait. Knee alignment: neutral . Range of motion is 5-100 . + Apprehension. Minimal effusion. No medial joint line pain on palpation. + lateral joint line pain on palpation. No pain over the MCL. No pain over the lateral ligamentous structures. Yung's negative . Posterior drawer negative . No laxity on varus stress testing. No laxity on valgus stress testing. Lamar's negative . She has significant TTP along medial and lateral patellar facets, as well as medial and lateral trochlear grooves. Significant TTP over patellar tendon. Imaging: X-rays and MRI do not show significant pathology with stabilizing structures. 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 Plan: 1. Return to clinic post-op . 2. Physical therapy recommendation: N/A 3. Pharmacologic treatment: Continue with current OTC medications 4. Bracing: N/A 5. Other recommendations: At this time we discussed that given her lack of relief of symptoms after multiple PT courses, as well as activity modification and NSAID therapy, we would recommend surgical intervention for removal of infrapatellar neuroma as well as diagnostic arthroscopy of the left knee. Risks, benefits, possible complications were discussed and patient would like to proceed. Consent was obtained and can be found in EMR. We will see her on the day of surgery. Dio Reilly DO PROGRESS Observed: 05/17/2018 Status: COMPLETED Source: [place] 10:56 AM [facility] ID: [id number] Author: Debbie Calderno Service: (none) Author Type: Physician Type: Progress Notes Filed: 05/17/2018 4:45 PM Note Text: Referral from Dr. Wilkerson Attending Attestation: I have seen and evaluated this patient. I agree with the impression and plan of care as outlined in the resident's note. Significant left knee pain and difficulty obtaining extension. She has no history of major knee pain prior to her injury. She had a fall and has predominantly anterior and lateral knee pain. On exam she has significant irritability of her subcutaneous tissues and her patella. Most of her pain tends to be over a palpable cord over the prepatellar region. She has exquisite pain and a positive Tinel's in this area. I think this represents a neuroma of one of the branches of the saphenous nerve. I've explained to her that I see this a few times a year. Her picture is a bit atypical for this and I think mainly due to contusion. She has pain but does not have any apprehension. No history of patellofemoral instability. MRI from an outside hospital is negative. I have discussed the risks, benefits, alternative procedures, expected outcomes and the length of convalescence. We have also discussed operative versus nonoperative management. Wilfrid Pond understands and would like to proceed with surgical intervention. The plan will be for left knee open excision of infrapatellar branch saphenous nerve neuroma and diagnostic arthroscopy with possible fat pad debridement. Preoperative antibiotics. No nerve block. Debbie Calderon MD CNOV Observed: 05/17/2018 Status: COMPLETED Source: [place] 10:00 AM [facility] Office Visit (ORMIDD) WILFRID POND ([id number]) 1985 F Date Time Provider Department 05/17/18 10:00 AM [facility] During your visit today, we recorded the following information about you: Debbie Calderon MD 05/17/2018 4:45 PM Signed Referral from Dr. Wilkerson Attending Attestation: I have seen and evaluated this patient. I agree with the impression and plan of care as outlined in the resident's note. Significant left knee pain and difficulty obtaining extension. She has no history of major knee pain prior to her injury. She had a fall and has predominantly anterior and lateral knee pain. On exam she has significant irritability of her subcutaneous tissues and her patella. Most of her pain tends to be over a palpable cord over the prepatellar region. She has exquisite pain and a positive Tinel's in this area. I think this represents a neuroma of one of the branches of the saphenous nerve. I've explained to her that I see this a few times a year. Her picture is a bit atypical for this and I think mainly due to contusion. She has pain but does not have any apprehension. No history of patellofemoral instability. MRI from an outside hospital is negative. I have discussed the risks, benefits, alternative procedures, expected outcomes and the length of convalescence. We have also discussed operative versus nonoperative management. Wilfrid Pond understands and would like to proceed with surgical intervention. The plan will be for left knee open excision of infrapatellar branch saphenous nerve neuroma and diagnostic arthroscopy with possible fat pad debridement. Preoperative antibiotics. No nerve block. MD Tania Everett 05/17/2018 11:08 AM Signed SURGERY INFORMATION You have been scheduled for Outpatient surgery with Dr. Debbie Calderon. Office Contact: Catie Sandoval, Adminstrative Machine Joint Cutter/ Juana Andersen RN-GRAEME, BSN [facility], [address] [place] [address] Wilfrid Pond [id number] Surgery Date: Procedure: Left knee arthroscopy, possible fat pad debridement and open excision of prepatellar neuroma TO DO LIST: [employer] online questionnaire (prior to PAT appointment) Schedule pre-admission testing (PAT) Call to schedule physical therapy Call to schedule crutch training before surgery - YOUR SURGERY MAY BE CANCELLED IF YOU HAVE NOT RECEIVED CRUTCH TRAINING!!!!! (This is applicable if you have not used crutches in the past or are not well-versed in doing so IMPORTANT!! Please let Dr. Calderon's community youth secretary ([phone]) know if you will need a letter for school, work or excusing you from any activities such as sports participation. [employer] on line questionnaire: this is required by anesthesia to help direct your periopertive care. Please go to [email or web address] to complete the following online questionnaire as soon as possible LOGIN CODE (4 letters, 4 numbers): [id number] PRE-OPERATIVE TESTING (PAT): You are required to have pre-admission testing including History and Physical Exam within 30 days of your surgery. Please call [phone] to arrange this appointment. This MUST be completed BEFORE surgery Testing will include a History and Physical Exam and may include laboratory studies, EKG, X-ray, Physical Therapy and medical, cardiac or vascular clearance if needed. PHYSICAL THERAPY: Please call [phone] to schedule at a location of your choice Before Surgery: Lower extremity surgery - If you have not been instructed on crutch use schedule 1 visit before surgery at a facility of your choice to meet with a physical therapist for crutch fitting/ training and exercise instruction. Call Rehabilitation and Sports Therapy: [phone] to make an appointment for the fitting, dispensing, and instruction in the use of crutches PRIOR to your surgery date. (YOUR SURGERY MAY BE CANCELLED IF YOU DO NOT HAVE CRUTCH TRAINING). The agent will assist you in selecting the location and specialty service that will best meet your needs. If you know how to use crutches but do not have them, you will provided with a pair at the surgery center the day of your surgery. After Surgery: Make this appointment before your surgery. You will be give an updated prescription the day of surgery. Your physical therapy start date is as follows: Left Knee arthroscopy/ACL reconstruction: 3-5 days post op Ankle removal of painful hardware: within one week of surgery ORIF ankle syndesmosis: 1 week post op SURGERY LOCATION: [facility]/ [facility] [place] [address] . Registration: [phone] Financial Counselor: Last name ends with A to K- [phone] Last name ends with L to Z- [phone] SURGERY TIME: You will contacted after 3:00 PM the business day before your surgery with your arrival time. If your surgery is on a Sunday, you will receive a call with your arrival time on Sunday afternoon. Transportation: You will need to have someone drive you home from your surgery and stay with you for 24 hours. You will not be permitted to take a taxi, public transportation or drive yourself home. Anesthesia: You will have General anesthesia for the surgery, which means you will be completely asleep. Shoulders, ACL reconstructions and some other knee procedures may also receive a nerve block. This means you will receive an injection into/ around the nerve that supplies feeling to the operative extremity. The nerve block will provide pain relief after surgery for up to 16 to 24 hours. Anesthesia will talk to you about this the day of surgery. NOTHING to EAT or DRINK after Midnight the NIGHT BEFORE THE SURGERY including water, chewing gum, hard candy AND breath mints. If you do it is likely your surgery will be cancelled. You may brush your teeth, but do not swallow any water. STOP taking Aspirin, NSAIDs (nonsteroidal anti-inflammatory), Anticoagulants, vitamins and herbal medications 7 DAYS PRIOR TO SURGERY. This includes but is not limited to (Ibuprofen, Motrin, Advil, Aleve, Anaprox, Naprosyn), herbal supplements, glucosamine, diet pills, cilostazol (Pletal), clopidogrel (Plavix), warafin (Coumadin), Mobic (meloxicam), Relafen (nabumetone), Daypro (oxaprozin) Feldene (piroxicam) and vitamin E. You may take Tylenol (acetaminophen) up until midnight the night before your surgery. You may resume your medications after surgery. Other medications that are allowed to be taken before surgery will be discussed at your pre operative testing appointment. Examples of medications to take the morning of surgery are Beta Blockers for blood pressure, inhalers and medication for gastric reflux MINIMIZE RISK SURGICAL SITE INFECTIONS: Notify the office: If you are prescribed an ANTIBIOTIC and will not be finished with it 2 weeks prior to surgery notice cuts, scrapes, blemishes, bug bites on operative extremity Become ill or develop any change in your health prior to your surgery. This includes minor conditions such as a cold, cough, or scrape on the operative extremity. WASH with Hibiclens or an antibacterial soap the night before and the morning of surgery. Keep soap/ hibiclens away from eyes, face and genital areas as it is drying and can damage the tissues. DO NOT APPLY LOTION Antibiotic: You will receive a dose of an antibiotic through your IV just before your surgery and for open cases a dose of an antibiotic prior to discharge. You will not be given a prescription for an antibiotic after surgery. Hair removal: hair around the surgical area will be shaved with clippers at the surgery center the morning of surgery Wound Care/ Incisions: Operative bandage/ dressing are usually removed 3 (three) days after your surgery. Leave the small white tapes across the incision in place. DO NOT get the incision wet. (cover with press and seal, plastic wrap or water proof band aids - remove after showering) Sutures will be removed at your 1st post op visit, approximately 2 weeks after surgery. THE DAY OF SURGERY: DO NOT APPLY: Lotions or Deodorant (upper extremity surgery only) and minimize the use of make up . Before leaving home: Remove contacts, all jewelry and body piercing. Leave all valuables at home. Wear loose-fitting clothing to accommodate bulky dressing or braces that may you may be wearing post op. Sweat pants, shorts and loose fitting tops that zip or button in the front will be easiest to put on after your surgery. DO NOT take oral glucose-lowering agents or RODNEY inhibitors (such as captopril [Capoten], enalapril [Vasotec], lisinopril [Prinivil, Zestril], quinapril [Accupril]). Insulin will need to be adjusted or withheld. BRING CRUTCHES (lower extremity surgery only) AFTER SURGERY: Follow up: Your first post op appointment will be scheduled for you approximately 7-10 days following your procedure. This will be scheduled for you. You will be provided with immediate home-going instructions before leaving the surgery center after your surgery. Pain Control: You will be given a prescription for pain medication on the day of surgery. It is important that you DO NOT drive or operate machinery while taking these medications as they make you drowsy. Recommend you take OTC stool softener or miralax while taking narcotic pain medication. You may also receive a prescription for an anti-inflammatory or instructed to take and OTC 325 mg aspirin. This is determined on an individual basis. Ice: you may be given an ice wrap or iceman cooling unit the day of surgery, otherwise you can use ice as needed. You may use frequently for the first 48-72 hours. Then use ice/iceman 4-5 times per day for 20 minutes at a time. Do not apply ice/ iceman to bare skin. This will assist with pain control. Driving: prior to driving you must be off narcotic medications, out of sling or brace, off crutches (for right lower extremity) and have good leg control. Dio Reilly DO 05/17/2018 4:45 PM Signed This is a consultation note. Patient seen at the request of: Dr. Wilkerson History of present illness: Wilfrid Pond is a 32 year old female who comes in today with a chief complaint of left knee pain . This pain has been present for 8 months . This occurred with the following preceding injury: Fall directly onto front of left knee . Patient has mild daily swelling. + popping/clicking. + locking. + giving way. + night pain. Prior treatment: has had multiple rounds of PT (x2) for 3 months. Had been seen by Omar Cronin and MRI was also completed after PT was ineffective. Was seen by Dr. Wilkerson and underwent corticosteroid injection 1 month ago with only 12 hours pain relief. Bracing was ineffective. Had some relief with lateral-sided taping. Physical Examination: This is a well appearing, well nourished patient in no acute distress. Patient's head is normocephalic and atraumatic. Patient has white sclera and pink conjunctiva. Mucous membranes are moist. Patient breathes easily and has normal chest wall excursion. Patient has an appropriate affect. Body habitus normal . Focused exam of the knee: antalgic gait. Knee alignment: neutral . Range of motion is 5-100 . + Apprehension. Minimal effusion. No medial joint line pain on palpation. + lateral joint line pain on palpation. No pain over the MCL. No pain over the lateral ligamentous structures. Yung's negative . Posterior drawer negative . No laxity on varus stress testing. No laxity on valgus stress testing. Lamar's negative . She has significant TTP along medial and lateral patellar facets, as well as medial and lateral trochlear grooves. Significant TTP over patellar tendon. Imaging: X-rays and MRI do not show significant pathology with stabilizing structures. 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 Plan: 1. Return to clinic post-op . 2. Physical therapy recommendation: N/A 3. Pharmacologic treatment: Continue with current OTC medications 4. Bracing: N/A 5. Other recommendations: At this time we discussed that given her lack of relief of symptoms after multiple PT courses, as well as activity modification and NSAID therapy, we would recommend surgical intervention for removal of infrapatellar neuroma as well as diagnostic arthroscopy of the left knee. Risks, benefits, possible complications were discussed and patient would like to proceed. Consent was obtained and can be found in EMR. We will see her on the day of surgery. Dio Reilly DO Referring Provider: SELF [[id number]] Allergies As of Date: 05/17/2018 Noted Allergy Reaction DEXTROMETHORPHAN 02/23/2011 16 - Unknown FENTANYL 01/04/2016 9 - Itching Comments: Pt. states almost ripped skin off post-op KETOROLAC 02/23/2011 16 - Unknown Comments: Motrin= home med PSEUDOEPHEDRINE 02/23/2011 16 - Unknown Date Reviewed: 05/17/2018 Reviewed by: Tania Frias - Fully Assessed Reason for Visit: Left Knee Pain [1208] Cmt: patient fell in October Reason For Visit History Recorded Primary Visit Diagnosis:Neuroma [D36.10] Other Visit Diagnosis:Left anterior knee pain [M25.562] Prescriptions as of 05/17/2018 Sig: ALBUTEROL INHALATION Inhale as instructed as need* PREDNISONE 10 MG TABLET Take 6 pills (all at once) on* MELOXICAM 15 MG TABLET Take 1 tablet by mouth once d* MELOXICAM 15 MG TABLET Take 1 tablet by mouth once d* Patient not taking: Reported on 08/21/2017 HYDROCODONE 5 MG-ACETAMINOPHE* Take 1 tablet by mouth every * Patient not taking: Reported on 05/30/2016 GABAPENTIN 100 MG CAPSULE Take 1 capsule by mouth three* HYDROCODONE 5 MG-ACETAMINOPHE* Take 1 tablet by mouth every * PREDNISONE 10 MG TABLETS IN A* Take 6 pills (all at once) on* PAROXETINE 30 MG TABLET Take 1 tablet by mouth once d* Problem List As Of Date 05/17/2018 Noted Resolved Carpal tunnel syndrome, right [G56.01] INVALID FOR* Right wrist tendonitis [M77.8] INVALID FOR* De Quervain's tenosynovitis [M65.4] INVALID FOR* Mild intermittent asthma without complication [*INVALID FOR* Anxiety [F41.9] INVALID FOR* Patellar tendonitis of left knee [M76.52] INVALID FOR* Extensor intersection syndrome of right wrist [*INVALID FOR* Other instructions from your clinician: SURGERY INFORMATION You have been scheduled for Outpatient surgery with Dr. Debbie Calderon. Office Contact: Catie Sandoval, Adminstrative Machine Joint Cutter/ Juana Andersen RN-BC, BSN [facility], [address] [place] [address] Wilfrid Pond [phone] Surgery Date: Procedure: Left knee arthroscopy, possible fat pad debridement and open excision of prepatellar neuroma TO DO LIST: [employer] online questionnaire (prior to PAT appointment) Schedule pre-admission testing (PAT) Call to schedule physical therapy Call to schedule crutch training before surgery - YOUR SURGERY MAY BE CANCELLED IF YOU HAVE NOT RECEIVED CRUTCH TRAINING!!!!! (This is applicable if you have not used crutches in the past or are not well-versed in doing so IMPORTANT!! Please let Dr. Calderon's community youth secretary ([phone]) know if you will need a letter for school, work or excusing you from any activities such as sports participation. [employer] on line questionnaire: this is required by anesthesia to help direct your periopertive care. Please go to [email or web address] to complete the following online questionnaire as soon as possible LOGIN CODE (4 letters, 4 numbers): [id number] PRE-OPERATIVE TESTING (PAT): You are required to have pre-admission testing including History and Physical Exam within 30 days of your surgery. Please call [phone] to arrange this appointment. This MUST be completed BEFORE surgery Testing will include a History and Physical Exam and may include laboratory studies, EKG, X-ray, Physical Therapy and medical, cardiac or vascular clearance if needed. PHYSICAL THERAPY: Please call [phone] to schedule at a location of your choice Before Surgery: Lower extremity surgery - If you have not been instructed on crutch use schedule 1 visit before surgery at a facility of your choice to meet with a physical therapist for crutch fitting/ training and exercise instruction. Call Rehabilitation and Sports Therapy: [phone] to make an appointment for the fitting, dispensing, and instruction in the use of crutches PRIOR to your surgery date. (YOUR SURGERY MAY BE CANCELLED IF YOU DO NOT HAVE CRUTCH TRAINING). The agent will assist you in selecting the location and specialty service that will best meet your needs. If you know how to use crutches but do not have them, you will provided with a pair at the surgery center the day of your surgery. After Surgery: Make this appointment before your surgery. You will be give an updated prescription the day of surgery. Your physical therapy start date is as follows: Left Knee arthroscopy/ACL reconstruction: 3-5 days post op Ankle removal of painful hardware: within one week of surgery ORIF ankle syndesmosis: 1 week post op SURGERY LOCATION: [facility] [place]/ [place] [address] . Registration: [phone] Financial Counselor: Last name ends with A to K- [phone] Last name ends with L to Z- [phone] SURGERY TIME: You will contacted after 3:00 PM the business day before your surgery with your arrival time. If your surgery is on a Sunday, you will receive a call with your arrival time on Sunday afternoon. Transportation: You will need to have someone drive you home from your surgery and stay with you for 24 hours. You will not be permitted to take a taxi, public transportation or drive yourself home. Anesthesia: You will have General anesthesia for the surgery, which means you will be completely asleep. Shoulders, ACL reconstructions and some other knee procedures may also receive a nerve block. This means you will receive an injection into/ around the nerve that supplies feeling to the operative extremity. The nerve block will provide pain relief after surgery for up to 16 to 24 hours. Anesthesia will talk to you about this the day of surgery. NOTHING to EAT or DRINK after Midnight the NIGHT BEFORE THE SURGERY including water, chewing gum, hard candy AND breath mints. If you do it is likely your surgery will be cancelled. You may brush your teeth, but do not swallow any water. STOP taking Aspirin, NSAIDs (nonsteroidal anti-inflammatory), Anticoagulants, vitamins and herbal medications 7 DAYS PRIOR TO SURGERY. This includes but is not limited to (Ibuprofen, Motrin, Advil, Aleve, Anaprox, Naprosyn), herbal supplements, glucosamine, diet pills, cilostazol (Pletal), clopidogrel (Plavix), warafin (Coumadin), Mobic (meloxicam), Relafen (nabumetone), Daypro (oxaprozin) Feldene (piroxicam) and vitamin E. You may take Tylenol (acetaminophen) up until midnight the night before your surgery. You may resume your medications after surgery. Other medications that are allowed to be taken before surgery will be discussed at your pre operative testing appointment. Examples of medications to take the morning of surgery are Beta Blockers for blood pressure, inhalers and medication for gastric reflux MINIMIZE RISK SURGICAL SITE INFECTIONS: Notify the office: If you are prescribed an ANTIBIOTIC and will not be finished with it 2 weeks prior to surgery notice cuts, scrapes, blemishes, bug bites on operative extremity Become ill or develop any change in your health prior to your surgery. This includes minor conditions such as a cold, cough, or scrape on the operative extremity. WASH with Hibiclens or an antibacterial soap the night before and the morning of surgery. Keep soap/ hibiclens away from eyes, face and genital areas as it is drying and can damage the tissues. DO NOT APPLY LOTION Antibiotic: You will receive a dose of an antibiotic through your IV just before your surgery and for open cases a dose of an antibiotic prior to discharge. You will not be given a prescription for an antibiotic after surgery. Hair removal: hair around the surgical area will be shaved with clippers at the surgery center the morning of surgery Wound Care/ Incisions: Operative bandage/ dressing are usually removed 3 (three) days after your surgery. Leave the small white tapes across the incision in place. DO NOT get the incision wet. (cover with press and seal, plastic wrap or water proof band aids - remove after showering) Sutures will be removed at your 1st post op visit, approximately 2 weeks after surgery. THE DAY OF SURGERY: DO NOT APPLY: Lotions or Deodorant (upper extremity surgery only) and minimize the use of make up . Before leaving home: Remove contacts, all jewelry and body piercing. Leave all valuables at home. Wear loose-fitting clothing to accommodate bulky dressing or braces that may you may be wearing post op. Sweat pants, shorts and loose fitting tops that zip or button in the front will be easiest to put on after your surgery. DO NOT take oral glucose-lowering agents or RODNEY inhibitors (such as captopril [Capoten], enalapril [Vasotec], lisinopril [Prinivil, Zestril], quinapril [Accupril]). Insulin will need to be adjusted or withheld. BRING CRUTCHES (lower extremity surgery only) AFTER SURGERY: Follow up: Your first post op appointment will be scheduled for you approximately 7-10 days following your procedure. This will be scheduled for you. You will be provided with immediate home-going instructions before leaving the surgery center after your surgery. Pain Control: You will be given a prescription for pain medication on the day of surgery. It is important that you DO NOT drive or operate machinery while taking these medications as they make you drowsy. Recommend you take OTC stool softener or miralax while taking narcotic pain medication. You may also receive a prescription for an anti-inflammatory or instructed to take and OTC 325 mg aspirin. This is determined on an individual basis. Ice: you may be given an ice wrap or iceman cooling unit the day of surgery, otherwise you can use ice as needed. You may use frequently for the first 48-72 hours. Then use ice/iceman 4-5 times per day for 20 minutes at a time. Do not apply ice/ iceman to bare skin. This will assist with pain control. Driving: prior to driving you must be off narcotic medications, out of sling or brace, off crutches (for right lower extremity) and have good leg control. Follow-up and Disposition History Recorded Encounter Status:Closed by DEBBIE CALDERON MD on 05/17/18 PAP I-G W/RFX HRHPV Collected: 04/24/2018 Status: F Source: [place] 2:20 PM [facility] REPOSITORY Order Comment: CYTOLOGY INFORMATION: - CLINICAL INFORMATION: HYSTERECTOMY - DATE LMP/MENOPAUSE: LMP - COLLECTION VIAL: Thin Prep Vial - GERIATRIC CASE MANAGER SOURCE: CERVICAL - COLLECTION TECHNIQUE: SPATULA ONLY Specimen Comment: [id number] Specimen Comment: No. of containers..01 ThinPrep Vial TYPE CODE TESTS RESULT OUT OF RANGE REFERENCE UNITS LAB L7400.0800 . Normal DIAGN Comment Result Comment: NEGATIVE FOR INTRAEPITHELIAL LESION AND MALIGNANCY. THIS SPECIMEN WAS RESCREENED PART OF OUR ADVERTISING TEACHER PROGRAM. LAB L7400.0900 . Normal ADEQ Comment Result Comment: Satisfactory for evaluation. LAB L7400.1400 . Normal PERFORM Comment Result Comment: Nilsa Moore, Grinder Set Up Operator Universal (ASCP) LAB L7400.1500 . Normal QC Comment REV Result Comment: Noe Hills, Supervisory Grinder Set Up Operator Universal (ASC) LAB L7400.2575 . Normal TEST METHOD Comment Result Comment: This liquid based ThinPrep(R) pap test was screened with the use of an image guided system. LAB L7400.2600 . Normal . COMM LAB L7400.2700 . Normal PAPSMR Comment Result Comment: The Pap smear is a screening test designed to aid in the detection of premalignant and malignant conditions of the uterine cervix. It is not a diagnostic procedure and should not be used as the sole means of detecting cervical cancer. Both false-positive and false-negative reports do occur. LAB L7400.2800 . Normal HPV RFLX Comment Result Comment: The HPV DNA reflex criteria were not met with this specimen result therefore, no HPV testing was performed. Performed at: [address] [id number] [employer] T[employer] Seller: Berna Bowden MD, Phone: [phone] Performed By: #### L7400.0350 #### [facility] (refer to report for specific site) refer to report for address and phone number PROGRESS Observed: 04/22/2018 Status: COMPLETED Source: [place] 8:40 AM [facility] REPOSITORY HNO ID: [id number] Author: Tommy Wilkerson Service: (none) Author Type: Physician Type: Progress Notes Filed: 04/22/2018 9:11 AM Note Text: Tommy Wilkerson MD Department of Orthopaedics Orthopaedics [address] [facility] [address] Dept: [phone] Dept April 22, 2018 CHIEF COMPLAINT: Established Patient (Left knee pain ) Ms. Wilfrid Pond is a 32 year old female who presents for a second opinion regarding her left knee. She injured it by falling directly on the anterior portion back in October. She was seen at an outside orthopedic office and has gone under quite a bit of care already. She has done physical therapy with some mild improvement but mixed results. She has taken anti-inflammatories with again some minor but no sustaining improvement. The only thing that she states did help was realigning the knee a bit with physio-tape. She tried bracing but was not sustainable due to ill fit. She continues with quite a bit of discomfort at 6 out of 10 pain. It's aching and stabbing at times. 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 The knee feels like it's giving out on her on occasion. Centered around the kneecap. ASSESSMENT: M25.562, G89.29 Chronic pain of left knee (primary encounter diagnosis) M25.362, M25.562 Patellofemoral instability of left knee with pain PLAN: we will try an injection for the knee today. If she continues with symptoms I would likely have her see one of the sports surgeons to determine if she is at all a candidate for patellar procedure. Ms. Wilfrid Pond was advised as to contrast therapies and/or to take analgesics/anti-inflammatories as needed and all contraindications were reviewed. OBJECTIVE: Ms. Wilfrid Pond is a pleasant 32 year old in no apparent distress. Gen:There were no vitals taken for this visit. nl development, obese, no deformities ENT: Normocephalic, normal hearing, moist mucosa CV: Pulses:DP/PT= 2+ and symmetric, capillary refill < 2 secs, no peripheral edema/varicosities Skin: no rash, bruising or lesions. Good turgor. Psych: cooperative and appropriate, alert and oriented x 3, good mood and affect. Musculoskeletal: Patient walks with antalgia, normal station. Hip motion without pain. Knee without effusion. Patella tracks with some mild laterality. Very minimal lateral subluxation to the middle third. slight tilt. There is no significant patellar crepitance, though quite a bit of discomfort with patellar compression.. positive pain along the medial and lateral facets. tenderness along the infrapatellar tendon as well. Range of motion 5-125?. No medial or lateral joint line pain on palpation. Ligamentous exam stable on varus and valgus stress testing at 0 and 30 degrees. Yung's examination is negative. Posterior drawer is negative. Negative McMurrays, without palpable click. Extremity is warm and well perfused. Sensation is grossly intact to light touch, subjectively. The risk, benefits and alternatives of injection and no injection therapy were discussed. The patient consented for an injection. Time out was conducted. The injection site was prepped with a Chlorhexadine swab. The left Superolateral joint was injected with a 25 gauge needle with 1 cc (6 mg) Celestone, 5 cc Marcaine 0.5% . The injection site was then dressed with a bandaid. The patient tolerated the injection well. The patient was instructed to call the office if any adverse local effects occurred or any if any questions or concerns arise. Tommy Wilkerson MD Imagin views of the left knee from an outside facility suggests no obvious arthritic problems or tractor. MRI from an outside facility of the left knee suggests sequelae of patellar maltracking as well as inflammation of Hoffa fat pad. No ligament injury. No chondromalacia. Supporting Subjective Information Below: Past Surgical History: PAST SURGICAL HISTORY Procedure Laterality Date - CHOLECYSTECTOMY HX - DANDC, DIAG AND/OR THERAPEUTIC 08/15 - HYSTERECTOMY HX - INCIS TENDON SHEATH,RADIAL STYLOID Right 12/17/2015 Right 1st dorsal compartment release - PAST SURGICAL HISTORY OF gastric surgery - PAST SURGICAL HISTORY OF ovary removal right - PAST SURGICAL HISTORY OF Right knee surgery x 2 - PAST SURGICAL HISTORY OF tubal ligation Medications: Current Outpatient Prescriptions: ALBUTEROL INHALATION Inhale as instructed as needed. predniSONE (DELTASONE) 10 mg tablet Take 6 pills (all at once) on day 1, 5 pills on day 2, 4 pills on day 3, 3 pills on day 4, 2 pills on day 5, and 1 pill on day 6. meloxicam (MOBIC) 15 mg tablet Take 1 tablet by mouth once daily. meloxicam (MOBIC) 15 mg tablet Take 1 tablet by mouth once daily. (Patient not taking: Reported on 08/21/2017) HYDROcodone-acetaminophen (NORCO) 5-325 mg per tablet Take 1 tablet by mouth every 4 hours as needed. (Patient not taking: Reported on 05/30/2016) gabapentin (NEURONTIN) 100 mg capsule Take 1 capsule by mouth three times daily. HYDROcodone-acetaminophen (NORCO) 5-325 mg per tablet Take 1 tablet by mouth every 6 hours as needed. predniSONE 10 mg tablet pack Take 6 pills (all at once) on day 1, 5 pills on day 2, 4 pills on day 3, 3 pills on day 4, 2 pills on day 5, and 1 pill on day 6. PARoxetine (PAXIL) 30 mg tablet Take 1 tablet by mouth once daily. Current Facility-Administered Medications: [COMPLETED] betamethasone acetate-betamethasone sodium phosphate 6 mg, bupivacaine (PF) 25 mg INTRA-ARTICULAR ONCE Allergies: Dextromethorphan; Fentanyl; Ketorolac; Pseudoephedrine ROS: General (negative for fatigue, malaise, weight loss/gain) HEENT (negative for headache, earache, recent vision changes, sinus pain, sore throat) Respiratory (no recent shortness of breath, hemoptysis) CV (negative for chest tightness, palpitations) Musculoskeletal (see HPI) Psych (no depression, anxiety) This note was partially generated using [employer] voice recognition system, and there may be some incorrect words, spellings, and punctuation that were not noted in checking the note before saving. Tommy Wilkerson MD PROGRESS Observed: 04/22/2018 Status: COMPLETED Source: [place] 8:13 AM [facility] REPOSITORY HNO ID: [id number] Author: Rosalia Bhagat Ma Service: (none) Author Type: (none) Type: Progress Notes Filed: 04/22/2018 9:11 AM Note Text: AMB ROOMING INTAKE FLOWSHEET DATA Risk Screening Do you have concerns about personal safety or safety in the home?: No Pain Pain Score: 6/10 Pain Location: Knee-Left Description: Stabbing, Aching Duration Amount of Time: 6 Duration Units: Months Frequency: Continuous Intervention: Cold, Heat, Medication Patient here today for evaluation of left knee pain x 6 months. She states she slipped off the curb at home and landed directly on left knee on black top. She did bring copy of x-rays done at [facility]. CNOV Observed: 04/22/2018 Status: COMPLETED Source: [place] 8:00 AM [facility] REPOSITORY Office Visit (ORTHWS) WILFRID POND ([id number]) 1985 F Date Time Provider Department 04/22/18 8:00 AM TOMMY WILKERSON During your visit today, we recorded the following information about you: Rosalia Bhagat Ma 04/22/2018 9:11 AM Signed AMB ROOMING INTAKE FLOWSHEET DATA Risk Screening Do you have concerns about personal safety or safety in the home?: No Pain Pain Score: 6/10 Pain Location: Knee-Left Description: Stabbing, Aching Duration Amount of Time: 6 Duration Units: Months Frequency: Continuous Intervention: Cold, Heat, Medication Patient here today for evaluation of left knee pain x 6 months. She states she slipped off the curb at home and landed directly on left knee on black top. She did bring copy of x-rays done at [facility]. Tommy Wilkerson MD 04/22/2018 9:11 AM Signed Tommy Wilkerson MD Department of Orthopaedics Orthopaedics [address] [place] [id number] Dept: [phone] Dept April 22, 2018 CHIEF COMPLAINT: Established Patient (Left knee pain ) Ms. Wilfrid Pond is a 32 year old female who presents for a second opinion regarding her left knee. She injured it by falling directly on the anterior portion back in October. She was seen at an outside orthopedic office and has gone under quite a bit of care already. She has done physical therapy with some mild improvement but mixed results. She has taken anti-inflammatories with again some minor but no sustaining improvement. The only thing that she states did help was realigning the knee a bit with physio- tape. She tried bracing but was not sustainable due to ill fit. She continues with quite a bit of discomfort at 6 out of 10 pain. It's aching and stabbing at times. 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 The knee feels like it's giving out on her on occasion. Centered around the kneecap. ASSESSMENT: M25.562, G89.29 Chronic pain of left knee (primary encounter diagnosis) M25.362, M25.562 Patellofemoral instability of left knee with pain PLAN: we will try an injection for the knee today. If she continues with symptoms I would likely have her see one of the sports surgeons to determine if she is at all a candidate for patellar procedure. Ms. Wilfrid Pond was advised as to contrast therapies and/or to take analgesics/anti-inflammatories as needed and all contraindications were reviewed. OBJECTIVE: Ms. Wilfrid Pond is a pleasant 32 year old in no apparent distress. Gen:There were no vitals taken for this visit. nl development, obese, no deformities ENT: Normocephalic, normal hearing, moist mucosa CV: Pulses:DP/PT= 2+ and symmetric, capillary refill < 2 secs, no peripheral edema/varicosities Skin: no rash, bruising or lesions. Good turgor. Psych: cooperative and appropriate, alert and oriented x 3, good mood and affect. Musculoskeletal: Patient walks with antalgia, normal station. Hip motion without pain. Knee without effusion. Patella tracks with some mild laterality. Very minimal lateral subluxation to the middle third. slight tilt. There is no significant patellar crepitance, though quite a bit of discomfort with patellar compression.. positive pain along the medial and lateral facets. tenderness along the infrapatellar tendon as well. Range of motion 5- 125?. No medial or lateral joint line pain on palpation. Ligamentous exam stable on varus and valgus stress testing at 0 and 30 degrees. Yung's examination is negative. Posterior drawer is negative. Negative McMurrays, without palpable click. Extremity is warm and well perfused. Sensation is grossly intact to light touch, subjectively. The risk, benefits and alternatives of injection and no injection therapy were discussed. The patient consented for an injection. Time out was conducted. The injection site was prepped with a Chlorhexadine swab. The left Superolateral joint was injected with a 25 gauge needle with 1 cc (6 mg) Celestone, 5 cc Marcaine 0.5% . The injection site was then dressed with a bandaid. The patient tolerated the injection well. The patient was instructed to call the office if any adverse local effects occurred or any if any questions or concerns arise. Tommy Wilkerson MD Imagin views of the left knee from an outside facility suggests no obvious arthritic problems or tractor. MRI from an outside facility of the left knee suggests sequelae of patellar maltracking as well as inflammation of Hoffa fat pad. No ligament injury. No chondromalacia. Supporting Subjective Information Below: Past Surgical History: PAST SURGICAL HISTORY Procedure Laterality Date - CHOLECYSTECTOMY HX - DANDC, DIAG AND/OR THERAPEUTIC 08/15 - HYSTERECTOMY HX - INCIS TENDON SHEATH,RADIAL STYLOID Right 12/17/2015 Right 1st dorsal compartment release - PAST SURGICAL HISTORY OF gastric surgery - PAST SURGICAL HISTORY OF ovary removal right - PAST SURGICAL HISTORY OF Right knee surgery x 2 - PAST SURGICAL HISTORY OF tubal ligation Medications: Current Outpatient Prescriptions: ALBUTEROL INHALATION Inhale as instructed as needed. predniSONE (DELTASONE) 10 mg tablet Take 6 pills (all at once) on day 1, 5 pills on day 2, 4 pills on day 3, 3 pills on day 4, 2 pills on day 5, and 1 pill on day 6. meloxicam (MOBIC) 15 mg tablet Take 1 tablet by mouth once daily. meloxicam (MOBIC) 15 mg tablet Take 1 tablet by mouth once daily. (Patient not taking: Reported on 08/21/2017) HYDROcodone-acetaminophen (NORCO) 5-325 mg per tablet Take 1 tablet by mouth every 4 hours as needed. (Patient not taking: Reported on 05/30/2016) gabapentin (NEURONTIN) 100 mg capsule Take 1 capsule by mouth three times daily. HYDROcodone-acetaminophen (NORCO) 5-325 mg per tablet Take 1 tablet by mouth every 6 hours as needed. predniSONE 10 mg tablet pack Take 6 pills (all at once) on day 1, 5 pills on day 2, 4 pills on day 3, 3 pills on day 4, 2 pills on day 5, and 1 pill on day 6. PARoxetine (PAXIL) 30 mg tablet Take 1 tablet by mouth once daily. Current Facility-Administered Medications: [COMPLETED] betamethasone acetate-betamethasone sodium phosphate 6 mg, bupivacaine (PF) 25 mg INTRA-ARTICULAR ONCE Allergies: Dextromethorphan; Fentanyl; Ketorolac; Pseudoephedrine ROS: General (negative for fatigue, malaise, weight loss/gain) HEENT (negative for headache, earache, recent vision changes, sinus pain, sore throat) Respiratory (no recent shortness of breath, hemoptysis) CV (negative for chest tightness, palpitations) Musculoskeletal (see HPI) Psych (no depression, anxiety) This note was partially generated using [employer] voice recognition system, and there may be some incorrect words, spellings, and punctuation that were not noted in checking the note before saving. Tommy Wilkerson MD Referring Provider: EMILY TRONCOSO [[id number]] Allergies As of Date: 04/22/2018 Noted Allergy Reaction DEXTROMETHORPHAN 02/23/2011 16 - Unknown FENTANYL 01/04/2016 9 - Itching Comments: Pt. states almost ripped skin off post-op KETOROLAC 02/23/2011 16 - Unknown Comments: Motrin= home med PSEUDOEPHEDRINE 02/23/2011 16 - Unknown Date Reviewed: 04/22/2018 Reviewed by: Tommy Wilkerson - Fully Assessed Reason for Visit: Established Patient [175] Cmt: Left knee pain Primary Visit Diagnosis:Chronic pain of left knee [M25.562, G89.29] Other Visit Diagnosis:Patellofemoral instability of left knee with pain [M25.362, M25.562] Order(s):[] betamethasone acetate-betamethasone sodium phosphate 6 mg, bupivacaine (PF) 25 mgDisp: Rfl: Prescriptions as of 04/22/2018 Sig: ALBUTEROL INHALATION Inhale as instructed as need* PREDNISONE 10 MG TABLET Take 6 pills (all at once) on* MELOXICAM 15 MG TABLET Take 1 tablet by mouth once d* MELOXICAM 15 MG TABLET Take 1 tablet by mouth once d* Patient not taking: Reported on 08/21/2017 HYDROCODONE 5 MG-ACETAMINOPHE* Take 1 tablet by mouth every * Patient not taking: Reported on 05/30/2016 GABAPENTIN 100 MG CAPSULE Take 1 capsule by mouth three* HYDROCODONE 5 MG-ACETAMINOPHE* Take 1 tablet by mouth every * PREDNISONE 10 MG TABLETS IN A* Take 6 pills (all at once) on* PAROXETINE 30 MG TABLET Take 1 tablet by mouth once d* Problem List As Of Date 04/22/2018 Noted Resolved Carpal tunnel syndrome, right [G56.01] INVALID FOR* Right wrist tendonitis [M77.8] INVALID FOR* De Quervain's tenosynovitis [M65.4] INVALID FOR* Mild intermittent asthma without complication [*INVALID FOR* Anxiety [F41.9] INVALID FOR* Patellar tendonitis of left knee [M76.52] INVALID FOR* Extensor intersection syndrome of right wrist [*INVALID FOR* Prescriptions ordered this encounter Disp Refills Start End [facility] 04/22/2018 04/22/2018 Class: Suppress Questions Route: [facility] Encounter Status:Closed by TOMMY WILKERSON MD on 04/22/18 HEMOGLOBIN A1C Collected: 04/18/2018 Status: F Source: [place] 3:07 PM [facility] REPOSITORY TYPE CODE TESTS RESULT OUT OF RANGE REFERENCE UNITS LAB L501.9985 4.2-6.3 % Normal HGB A1C 5.0 Performed By: #### L501.9985 #### [facility] [address] [place], [place], [address] FREE T3 Collected: 04/18/2018 Status: F Source: [place] 3:07 PM [facility] REPOSITORY Order Comment: Has Patient had X-rays with Contrast this admission? N TYPE CODE TESTS RESULT OUT OF RANGE REFERENCE UNITS LAB L501.76574 2.18-3.98 pg/mL Normal FREE T3 2.5 Performed By: #### L501.91431, L501.9520, L506.0400, L3100.5125, L3100.5170, L3100.5420 #### [facility] [address] [place], [place], [address] THYROID STIM HORMONE Collected: 04/18/2018 Status: F Source: [place] (TSH) 3:07 PM [facility] REPOSITORY Order Comment: Has Patient had X-rays with Contrast this admission? N TYPE CODE TESTS RESULT OUT OF RANGE REFERENCE UNITS LAB L501.9520 0.358-3.74 uIU/mL Normal TSH 2.63 Performed By: #### L501.60425, L501.9520, L506.0400, L3100.5125, L3100.5170, L3100.5420 #### [facility] [address] [place], [address] T4 FREE DIRECT Collected: 04/18/2018 Status: F Source: [place] 3:07 PM [facility] REPOSITORY Order Comment: Has Patient had X-rays with Contrast this admission? N TYPE CODE TESTS RESULT OUT OF RANGE REFERENCE UNITS LAB L506.0400 0.76-1.46 ng/dL Normal T4 FREE 0.87 DIRECT Performed By: #### L501.95469, L501.9520, L506.0400, L3100.5125, L3100.5170, L3100.5420 #### [facility] [address] [place], [address] FOLLICLE STIMULATING Collected: 04/18/2018 Status: F Source: [place] 3:07 PM [facility] REPOSITORY Order Comment: Has Patient had X-rays with Contrast this admission? N TYPE CODE TESTS RESULT OUT OF RANGE REFERENCE UNITS LAB L3100.5125 mIU/mL Normal FSH 63.8 Result Comment: NORMAL REFERENCE RANGES FEMALE FOLLICULAR 2.3 - 12.6 mIU/mL MID-CYCLE PEAK 5.2 - 17.5 mIU/mL LUTEAL 1.7 - 12.9 mIU/mL POST-MENOPAUSAL ON MHT 5.9 - 72.8 mIU/mL NOT ON MHT 12.7 - 132.2 mlU/mL MALE 0.7 - 10.8 mIU/mL NEW TEST METHOD AND REFERENCE RANGES JANUARY 29, 2012 Performed By: #### L501.71538, L501.9520, L506.0400, L3100.5125, L3100.5170, L3100.5420 #### [facility] [address] [place], [address] LUTEINIZING HORMONE Collected: 04/18/2018 Status: F Source: [place] 3:07 PM [facility] REPOSITORY Order Comment: Has Patient had X-rays with Contrast this admission? N TYPE CODE TESTS RESULT OUT OF RANGE REFERENCE UNITS LAB L3100.5170 mIU/mL Normal LH 32.6 Result Comment: NORMAL REFERENCE RANGES FEMALE FOLLICULAR 1.9 - 26.2 mIU/mL MID-CYCLE PEAK 22.8 - 76.1 mIU/mL LUTEAL 0.6 - 16.6 mIU/mL POST-MENOPAUSAL ON MHT 1.1 - 52.4 mIU/mL NOT ON MHT 8.6 - 61.8 mIU/mL MALE 1.2 - 10.6 mIU/mL NEW TEST METHOD AND REFERENCE RANGES JANUARY 29, 2012 Performed By: #### L501.04768, L501.9520, L506.0400, L3100.5125, L3100.5170, L3100.5420 #### [facility] [address] [facility] [place], [place], [address] PROLACTIN Collected: 04/18/2018 Status: F Source: [place] 3:07 PM [facility] REPOSITORY Order Comment: Has Patient had X-rays with Contrast this admission? N TYPE CODE TESTS RESULT OUT OF RANGE REFERENCE UNITS LAB L3100.5420 ng/mL Normal PROLACTIN 5.4 Result Comment: NORMAL REFERENCE RANGES FEMALE NON- 2.2 - 30.3 ng/mL 8.1 - 347.6 ng/mL POST-MENOPAUSAL 0.7 - 31.5 ng/mL MALE 2.5 - 17.4 ng/mL NEW TEST METHOD AND REFERENCE RANGES JANUARY 29, 2012 Performed By: #### L501.27971, L501.9520, L506.0400, L3100.5125, L3100.5170, L3100.5420 #### [facility] [address] [facility] [place], [place], [address] TESTOSTERONE, TOTAL / Collected: 04/18/2018 Status: F Source: [place] FREE 3:07 PM [facility] REPOSITORY Order Comment: Has Patient had X-rays with Contrast this admission? N Has Patient had Radioactive Injection for X-ray?: N TYPE CODE TESTS RESULT OUT OF RANGE REFERENCE UNITS LAB L3100.5320 8-48 ng/dL Normal TESTOSTER,TOTAL 16 LAB L3100.5340 0.10-0.85 ng/dL Normal TESTOSTER,FREE 0.43 LAB L3100.5360 0.50-2.80 % Normal TESTOSTER %FREE 2.69 Performed By: #### L3100.5310, L3400.0200 #### [facility] (refer to report for specific site) refer to report for address and phone number ESTROGEN, TOTAL, SERUM Collected: 04/18/2018 Status: F Source: [place] 3:07 PM [facility] REPOSITORY Order Comment: Has Patient had X-rays with Contrast this admission? N Has Patient had Radioactive Injection for X-ray?: N TYPE CODE TESTS RESULT OUT OF RANGE REFERENCE UNITS LAB L3400.0200 . pg/mL Normal ESTROGEN 4549 55 Result Comment: Prepubertal <40 Female Cycle: 1-10 Days 61 - 394 11-20 Days 122 - 437 21-30 Days 156 - 350 Post-Menopausal <40 HMG Treatment for Ovulation Induction: 400 - 800 Performed at: - [facility] [address] [id number] [employer] Ticket Seller: Luis Armando Oreilly PhD, Phone: [phone] Performed at: - [facility] [id number] [employer] Ticket Seller: Abimael Knott MD, Phone: [phone] Performed By: #### L3100.5310, L3400.0200 #### [facility] (refer to report for specific site) refer to report for address and phone number PROGRESS Observed: 04/11/2018 Status: COMPLETED Source: [place] 2:46 PM [facility] REPOSITORY HNO ID: [id number] Author: Roxana (Rn) SHAINA Abbott Service: (none) Author Type: Registered Nurse Type: Progress Notes Filed: 04/30/2018 10:18 AM Note Text: AMB ROOMING INTAKE FLOWSHEET DATA Risk Screening Do you have concerns about personal safety or safety in the home?: No Pain Pain Score: 8/10 Pain Location: Knee-Left Description: Sharp, Stabbing Duration Amount of Time: 5 Duration Units: Months Frequency: Continuous Intervention: Medication, Cold (tylenol/motrin ) Patient presents with: Established Patient: Left knee pain, MRI-02/01/18 [facility] films, last seen 08/21/17 right wrist pain s/p 1st dorsal compartment release (12/17/15) patient is here for left knee pain. Patient works at [employer]. She did not bring her MRI disk, but records were sent from [facility]. Roxana Abbott RN CNOV Observed: 04/11/2018 Status: COMPLETED Source: [place] 2:10 PM [facility] REPOSITORY Office Visit (ORTHWS) DENITA PONDOLE Demi ([id number]) 1985 F Date Time Provider Department 04/11/18 2:10 PM TOMMY WILKERSON During your visit today, we recorded the following information about you: Roxana Abbott RN, RN 04/30/2018 10:18 AM Signed AMB ROOMING INTAKE FLOWSHEET DATA Risk Screening Do you have concerns about personal safety or safety in the home?: No Pain Pain Score: 8/10 Pain Location: Knee-Left Description: Sharp, Stabbing Duration Amount of Time: 5 Duration Units: Months Frequency: Continuous Intervention: Medication, Cold (tylenol/motrin ) Patient presents with: Established Patient: Left [facility] last seen 08/21/17 right wrist pain s/p 1st dorsal compartment release (12/17/15) patient is here for left knee pain. Patient works at [employer]. She did not bring her MRI disk, but records were sent from [facility]. Roxana Abbott RN Referring Provider: EMILY TRONCOSO [[id number]] Allergies As of Date: 04/11/2018 Noted Allergy Reaction DEXTROMETHORPHAN 02/23/2011 16 - Unknown FENTANYL 01/04/2016 9 - Itching Comments: Pt. states almost ripped skin off post-op KETOROLAC 02/23/2011 16 - Unknown Comments: Motrin= home med PSEUDOEPHEDRINE 02/23/2011 16 - Unknown Date Reviewed: 04/11/2018 Reviewed by: Roxana (Shaina) SHAINA Abbott - Fully Assessed Reason for Visit: Appointment Cancelled [1023] Reason For Visit History Recorded Primary Visit Diagnosis:APPOINTMENT CANCELLED Prescriptions as of 04/11/2018 Sig: ALBUTEROL INHALATION Inhale as instructed as need* PREDNISONE 10 MG TABLET Take 6 pills (all at once) on* MELOXICAM 15 MG TABLET Take 1 tablet by mouth once d* MELOXICAM 15 MG TABLET Take 1 tablet by mouth once d* Patient not taking: Reported on 08/21/2017 HYDROCODONE 5 MG-ACETAMINOPHE* Take 1 tablet by mouth every * Patient not taking: Reported on 05/30/2016 GABAPENTIN 100 MG CAPSULE Take 1 capsule by mouth three* HYDROCODONE 5 MG-ACETAMINOPHE* Take 1 tablet by mouth every * PREDNISONE 10 MG TABLETS IN A* Take 6 pills (all at once) on* PAROXETINE 30 MG TABLET Take 1 tablet by mouth once d* Medication notes this encounter PREDNISONE 10 MG TABLET >> Roxana Abbott, SHAINA, RN 04/11/2018 2:46 PM >> ROXANA ABBOTT Loretta Apr 11, 2018 2:46 PM Not taking MELOXICAM 15 MG TABLET >> Roxana Abbott RN, RN 04/11/2018 2:45 PM >> ROXANA ABBOTT [facility] Apr 11, 2018 2:45 PM Not taking Problem List As Of Date 04/11/2018 Noted Resolved Carpal tunnel syndrome, right [G56.01] INVALID FOR* Right wrist tendonitis [M77.8] INVALID FOR* De Quervain's tenosynovitis [M65.4] INVALID FOR* Mild intermittent asthma without complication [*INVALID FOR* Anxiety [F41.9] INVALID FOR* Patellar tendonitis of left knee [M76.52] INVALID FOR* Extensor intersection syndrome of right wrist [*INVALID FOR* Encounter Status:Closed by FAITH FRANKLIN CMA on 04/30/18 [place] Observed: 04/11/2018 Status: COMPLETED Source: [place] 12:00 AM [facility] REPOSITORY Telephone (DESI) WILFRID POND ([id number]) 1985 F Date Time Provider Department 04/11/18 TOMMY WILKERSON During your visit today, we recorded the following information about you: Roxana Abbott, SHAINA, RN 04/11/2018 3:56 PM Signed Records obtained via fax from [facility], but patient did not bring MRI on disc. Informed patient to obtain from facility. Rescheduled appt to Sunday April 22, 2018. Records placed in BP folder. Please review Heidi Soler RN 04/18/2018 3:40 PM Signed Pt. dropped off CD of MRI today. She has appt. on 04-22-18. Allergies As of Date: 04/11/2018 Noted Allergy Reaction DEXTROMETHORPHAN 02/23/2011 16 - Unknown FENTANYL 01/04/2016 9 - Itching Comments: Pt. states almost ripped skin off post-op KETOROLAC 02/23/2011 16 - Unknown Comments: Motrin= home med PSEUDOEPHEDRINE 02/23/2011 16 - Unknown Date Reviewed: 04/11/2018 Reviewed by: Roxana (Rn) SHAINA Abbott - Fully Assessed Reason for Visit: records obtained [Other] Prescriptions as of 04/11/2018 Sig: ALBUTEROL INHALATION Inhale as instructed as need* PREDNISONE 10 MG TABLET Take 6 pills (all at once) on* MELOXICAM 15 MG TABLET Take 1 tablet by mouth once d* MELOXICAM 15 MG TABLET Take 1 tablet by mouth once d* Patient not taking: Reported on 08/21/2017 HYDROCODONE 5 MG-ACETAMINOPHE* Take 1 tablet by mouth every * Patient not taking: Reported on 05/30/2016 GABAPENTIN 100 MG CAPSULE Take 1 capsule by mouth three* HYDROCODONE 5 MG-ACETAMINOPHE* Take 1 tablet by mouth every * PREDNISONE 10 MG TABLETS IN A* Take 6 pills (all at once) on* PAROXETINE 30 MG TABLET Take 1 tablet by mouth once d* Problem List As Of Date 04/11/2018 Noted Resolved Carpal tunnel syndrome, right [G56.01] INVALID FOR* Right wrist tendonitis [M77.8] INVALID FOR* De Quervain's tenosynovitis [M65.4] INVALID FOR* Mild intermittent asthma without complication [*INVALID FOR* Anxiety [F41.9] INVALID FOR* Patellar tendonitis of left knee [M76.52] INVALID FOR* Extensor intersection syndrome of right wrist [*INVALID FOR* Encounter Status:Closed by JUAN C BARRERA PA-C on 04/12/18 DISCHARGE INSTRUCTION Observed: 03/25/2018 Status: F Source: OMAR 3:12 PM [facility] HOSPITAL REPOSITORY [facility] Medical Records Department [address] [place] [address] Discharge Instruction 03/25/18 1510 MR#: [id number] Acct: [id number] Name: ESWILFRID BUITRAGO Rep #: [id number] : 1985 32 From: Watson Ocampo MD PCP: Care Physician, No Primary Status: PRE ER ED Disposition - Plan for ED Patient: Chief Complaint: Upper Extremity Injury Instructions: ED Strain Muscle Ext Prescriptions: Naproxen [Naprosyn] 500 mg PO BID #20 tab Cyclobenzaprine [Flexeril] 10 mg PO TID PRN #20 tab PRN Reason: Muscle Spasm Referrals: Care Physician,No Primary [Primary Care Provider] - What to do if you have Problems For any increased pain, shortness of breath, bleeding, nausea or vomiting, chest pain, or any unexpected problems, contact your Primary Care Provider. Call [employer] [facility] ([phone]) or report to the closest Emergency Room. Call 911 if necessary. 03/25/181511 <Electronically signed by Watson Ocampo MD> Date Watson Ocampo MD Cosigner Signature (If Indicated): Date CC: No Primary Care Physician EMERGENCY DEPARTMENT Observed: 03/25/2018 Status: F Source: OMAR SUMMARY 3:10 PM [facility] HOSPITAL REPOSITORY [facility] Medical Records Department [address] [place] [address] Emergency Department Summary 03/25/18 1508 MR#: [id number] Acct: [id number] Name: WILFRID POND Rep #: [id number] : 1985 32 From: Watson Ocampo MD PCP: Care Physician, No Primary Status: PRE ER - ER Visit Summary Date of Service: 03/25/18 Chief Complaint: Right shoulder pain History of Present Illness: The patient is a 32 F who presents with about 1 day of pain along the right side of her neck down into the back of her shoulder and upper back. She has a history of prior similar symptoms about a year ago and was diagnosed with a trapezius strain. She denies any fall or injury. She has tried Tylenol ibuprofen and heating pad with only minimal relief. No paresthesias weakness or loss of function. No chest pain or shortness of breath. Physical Examination: Afebrile vitals are stable Patient resting comfortably Heart is regular rate and rhythm Lungs are clear Patient has pain on palpation focal to the distribution of the right trapezius she has active full range of motion of the shoulder normal sensation distally brisk capillary refill Test Results: Not indicated Emergency Department Course and Treatment: History and examination are consistent with a right trapezius strain. She was given prescriptions for naproxen and Flexeril. She is agreeable to this plan. She understands return for new or worsening symptoms and otherwise to follow-up as an outpatient as needed and was discharged home. Treatment Plan: [] Disposition: Discharge Impression: Right trapezius strain This note was generated with [employer] dictation software. It may contain incorrect words, spelling, and punctuation that were not noted in review of the chart prior to signing ED Disposition - Plan for ED Patient: Chief Complaint: Upper Extremity Injury Referrals: Care Physician,No Primary [Primary Care Provider] - What to do if you have Problems For any increased pain, shortness of breath, bleeding, nausea or vomiting, chest pain, or any unexpected problems, contact your Primary Care Provider. Call [facility] ([phone]) or report to the closest Emergency Room. Call 911 if necessary. 03/25/18 1510 <Electronically signed by Watson Ocampo MD> Date Watson Ocampo MD Cosigner Signature (If Indicated): Date CC: No Primary Care Physician OFFICE VISIT REPORT Observed: 11/03/2017 Status: F Source: OMAR 3:35 PM [facility] [place] [address] [address] OFFICE VISIT Date of Service: 10/22/17 MR#: [id number] Acct: [id number] Patient: WILFRID POND Rep #: [id number] : 1985 Provider: Rajwinder Garay NP Age/Sex: 32/F [facility] Status: Signed Intake Vital Signs10/22/17 Height 5 ft 9 in 10/22/17 Weight: 225 lb 10/22/17 Body Mass Index (BMI) 33.2 10/22/17 Blood Pressure 140/80 10/22/17 Blood Pressure Location Lt popliteal 10/22/17 Blood Pressure Position Sitting Intake Visit Reasons: Thyroid dysfunction Insurance Claims Adjuster Required: No Accompanied by: Self Is patient in pain?: No Allergies fentanyl Allergy (Verified 10/29/17 13:39) Rash ketorolac tromethamine [From Toradol] Allergy (Verified 10/29/17 13:39) Rash COLD MEDICATIONS Adverse Reaction (Uncoded 10/29/17 13:39) Unknown PLASTIC TAPE Adverse Reaction (Uncoded 10/29/17 13:39) Unknown Is last menstrual period known: No Post menopausal: No Patient : No PFSH Medical History Anxiety and depression (Acute) Asthma (Acute) GI problem (Acute) Gallstones (Acute) H/O gestational diabetes mellitus, not currently (Acute) IBS (irritable bowel syndrome) (Acute) Surgical History H/O knee surgery (Acute) H/O tubal ligation (Acute) H/O: hysterectomy (Acute) Hx of cholecystectomy (Acute) Hx of removal of ovary (Acute) S/P wrist surgery (Acute) gastric diveticulum resection (Acute) Family History Grandmother Breast cancer Diabetes Thyroid disorder Grandfather Diabetes Hypertension Father Hypertension Sister Diabetes Thyroid disorder Social History Smoking Status: Current every day smoker alcohol intake: never substance use type: does not use Questionnaire Depression Screen PHQ-2/9 PHQ-2 Over the last 2 weeks, how often have you been bothered by any of the following problems? 1. Little interest or pleasure in doing things: not at all 2. Feeling down, depressed, or hopeless: not at all Total score: 0 If score is 2 or greater, continue Source: Developed by Drs. Gage Choudhary, Nika Bass, Kahlil Ramirez and colleagues, with an educational addis from [employer]. Scoring: Total Score Depression Severity Action 1-4 Minimal depression No action needed 5-9 Mild depression Repeat PHQ-9 at follow up 10-14 Moderate depression Make tx plan,consider counseling, fup, prescription HPI HPI Details: WILFRID POND, is a 32 F who presents to the office today for consult regarding thyroid function. Reports she has a family history of thyroid disease and she feels this may be under functioning. Gives history of incareration and during this time she states she was found to be hypothyroid and was given thyroid medication. She has not had any since that time. Severity, modifying factors, context, and associated signs and symptoms are as follows: Thyroid pain: No Energy: Reduced Sleep: Not awakened refreshed Temp: No intolerance GI: Normal bowel Weight: Flucuates Eyes: No change in vision Memory: unchanged Diaphoresis: Not significant Skin: Dry Hair : shedding Neuro: No numbness, tingling or tremors No lab results or records available At time of visit: -Pt denies symptoms of hypertensive emergency (CP,SOB,CAMP, or blurred vision) and hypotension(dizziness or lightheadedness) -Pt denies symptoms of hyperthyroidism ( sweaty, confusion, anxiety, tremor, hunger, palpitations) and hyperglycemia ( polydipsia, polyuria) -Pt denies potential medication adverse effect. ROS Const Constitutional: Positive for fatigue; no anorexia, body ache, chills, fever(s), frequent falls, decreased energy, malaise, night sweats, weakness, weight change, sleep problems, abnormal sleep pattern, change in appetite, other, headache(s), snoring or excessive sweating Eyes Eyes: No blurry vision, change in vision, double vision, discharge, dry eyes, bulging eyes, floaters, visual disturbances, eye pain, light sensitivity, spots in vision, tunnel vision or other ENT ENT: No abnormal hearing, ear pain, ear discharge, ear pressure, hearing loss, tinnitus, dizziness/vertigo, balance problems, nosebleed/epistaxis, nasal congestion, nasal obstruction, nose pain, sinus pressure, sinus pain, nasal discharge, post nasal drip, headache(s), facial pain, dental pain, dry mouth, bad breath, hoarseness, lip swelling, mouth lesions, mouth pain, sore throat, tongue swelling, throat swelling, other, difficulty swallowing or neck pain Resp Respiratory: No cough, change in phlegm color, chest congestion, excessive phlegm production, hemoptysis, pain on inspiration, shortness of breath, pain with cough, snoring, stridor, wheezing or other Cardio Cardiology: No chest pain at rest, chest pain with exertion, leg pain with exertion, excessive sweating, shortness of breath, dyspnea on exertion, generalized swelling, irregular heart rhythm, lightheadedness, orthopnea, radiating jaw, neck or arm pain, fast heart rate, slow heart rate, palpitations or other Gastro GI: No abdominal pain, belching, bloating, change in bowel habits, change in stool character, coffee ground emesis, constipation, cramping, diarrhea, heartburn, difficulty swallowing, feeling full early, excessive flatus, incontinent of stools, Vomiting blood/hematemesis, blood in stool, loose stools, Black,tarry stools, nausea/dyspepsia, pain with swallowing, vomiting or other Genitourinary-Female: Positive for absent period; no difficulty urinating, burning urination, painful urination, urinary incontinence, urinary frequency, urinary urgency, urinary hesitancy, urinary retention, blood in urine, Frequent nighttime urination/ nocturia, post void dribbling, suprapubic fullness, side pain, sexual problems, genital lesions, genital itching, hot flashes, abnormal periods, abnormal vaginal bleeding, painful periods, light periods, heavy periods, difficulty getting , painful intercourse, pelvic pain, vaginal dryness, vaginal odor, Vaginal Itching or other Musc Musculoskeletal: No abnormal walking, joint pain, back pain, deformity, joint swelling, limited range of motion, loss of height, muscle cramps, muscle weakness, decreased muscle mass, body aches, neck pain, numbness, radiating pain into limb, stiffness, tingling or other Neuro Neurology: No frequent falls, weakness, visual disturbances, abnormal hearing, headache(s), abnormal walking, numbness or tingling Psych Psychiatric: No abnormal sleep pattern, No change in appetite Endo Endocrine: Positive for fatigue; no other or excessive sweating Aller/Imm Allergy/Immunologic: No lip swelling, tongue swelling, throat swelling or wheezing Exam Const General: comfortable, no acute distress Nutritional Appearance: overweight Orientation: oriented x3 [facility] Head: normal to inspection, normocephalic Ears: hearing grossly normal bilaterally Mouth: oral mucosae normal, moist mucous membranes Teeth and gingiva: dentition normal Eyes General: appearance normal, both eyes and all related structures Eyelids: eyelids normal Conjunctivae: conjunctivae normal Sclera: sclerae normal Pupils: PERRL Neck Neck: normal visual inspection Neck mass: No Thyroid: other (enlarged) Chest Chest palpation AND inspection: deferred Resp Effort AND Inspection: normal respiratory effort, able to speak in complete sentences, symmetric chest movement Auscultation: Bilateral: Clear to Auscultation Cardio Rate: regular rate Rhythm: regular rhythm Heart Sounds: S1 normal, S2 normal GI Auscultation: normal bowel sounds Palpation: soft, no guarding General: deferred Musc Musculoskeletal: No muscle weakness Thoracic/Lumbar Spine: thoracic and lumbar spine normal to inspection Skin Rashes: no rashes Wounds: no wounds Neuro General: oriented x3, normal light touch, pain and propioception Cognition: normal cognition Speech: speech normal Gait: normal gait Motor: muscle tone normal throughout Extrem General: normal to inspection, full ROM, normal capillary refill Psych Appearance: well kempt Mental Status: mental status grossly normal Mood: congruent mood Affect: normal affect Speech and Movement: speech and movement normal Attitude: cooperative Thought Process: normal Thought Content: normal Judgment: judgment good Assessment AND Plan 1. Thyroid dysfunction E07.9 Plan Has concerns about her thyroid. States she has been on thyroid replacement in past. Will check lab values to determine status. Enc good sleep hygien, healthy diet, daily exercise. Plan Detail Other Orders Orders: Coding Level of Care Code Off vis,new,level 3 Diagnoses Thyroid dysfunction E07.9 Time Spent (min) 45 11/03/17 6855 <Electronically signed by Rajwinder WORRELL> Date Rajwinder WORRELL Cosigner Signature: Date (if applicable) CC: EMERGENCY DEPARTMENT Observed: 10/29/2017 Status: F Source: OMAR SUMMARY 3:10 PM [facility] REPOSITORY [facility] Medical Records Department [address] [place] [address] Emergency Department Summary 10/29/17 1504 MR#: [id number] Acct: [id number] Name: WILFRID POND Rep #: [id number] : 1985 32 From: Nick Silveira MD PCP: Care Physician, No Primary Status: REG ER - ER Visit Summary Date of Service: 10/29/17 Chief Complaint: Knee pain status post fall History of Present Illness: The patient is a 32 F who slipped this morning. She landed on her left knee. She presents because of increasing pain and swelling. Immunization is not known. She believes it is greater than 10 years. She reports limited range of motion and pain with ambulation. She is on no medication and reports no medical problems. She is a smoker. She denies any paresthesia, anesthesia or motor weakness. She denies any other injury. Please read written note for complete detail Physical Examination: Vital signs are remarkable for an elevated blood pressure 150/107 and a heart rate of 104. She is not hypoxic nor is she febrile. Examination left knee reveals contusion abrasion over the left patella. The patella is not ballotable. There is no effusion. She is able to extend to 170 and flex to 100 . There is no laxity with varus valgus stress testing. Yung's test is negative. Modified Lamar's test is negative. She did complain of pain along the anterior tibial plateau. There is no neurovascular deficit distal to injury. Test Results: X-ray of the knee was obtained per nurse protocol. There is no evidence of fracture, foreign body or effusion. Emergency Department Course and Treatment: 4 view x-ray of the left knee was obtained per nurse protocol. Adacel IM and appropriate wound care. Treatment Plan: Symptomatic treatment and appropriate home- going instructions Disposition: Discharge to home Impression: Contusion and abrasion left knee status post fall initial encounter This note was generated with Dragon dictation software. It may contain incorrect words, spelling, and punctuation that were not noted in review of the chart prior to signing ED Disposition - Plan for ED Patient: Disposition: Home or Assisted Living Chief Complaint: Lower Extremity Injury Instructions: ED Contusion Lower Ext, ED Abrasion Referrals: Care Physician,No Primary [Primary Care Provider] - Viola Velasquez MD [STAFF PHYSICIAN] - 1 Week if not improving What to do if you have Problems For any increased pain, shortness of breath, bleeding, nausea or vomiting, chest pain, or any unexpected problems, contact your Primary Care Provider. Call [facility] ([phone]) or report to the closest Emergency Room. Call 911 if necessary. 10/29/17 1510 <Electronically signed by Nick Silveira MD> Date Nick Silveira MD Cosigner Signature (If Indicated): Date CC: No Primary Care Physician; Viola Velasquez MD KNEE 4 OR MORE Observed: 10/29/2017 Status: F Source: SPARKS VIEWS 1:43 PM [facility] REPOSITORY [facility] Imaging Services [address] [place] [address] Knee 4 or More Views MR#: [id number] Acct: [id number] Name: WILFRID POND Rep #: [id number] : 1985 F 32 From: Nicholas Ty MD PCP: Care Physician, No Primary Status: PRE ER Study: Knee 4 or More Views Date of Exam: 10/29/17 Exam# [id number] Ordering Dr: Laurie, Jordy P. STUDY: X-RAY - LEFT KNEE REASON FOR EXAM: Female, 32 years old. Left knee pain following a fall. TECHNIQUE: 4 view(s) of the knee. COMPARISON: None. FINDINGS: Normal visualized distal femur. Normal visualized proximal tibia and fibula. Normal proximal tibiofibular articulation. Normal medial femorotibial compartment. Normal lateral femorotibial compartment. Normal patellofemoral articulation. The soft tissue structures are unremarkable. RAD/Knee 4 or More Views IMPRESSION: Normal x-ray examination of the knee. Electronically Signed: Nicholas Ty MD at 14:06 EST Tel [phone], Service support , CC: No Primary Care Physician; ED PHYSICIAN PROVIDER Inventory Control Specialist: Signed FREE T3 Collected: 10/22/2017 Status: F Source: SPARKS 12:14 PM [facility] REPOSITORY TYPE CODE TESTS RESULT OUT OF RANGE REFERENCE UNITS LAB [id number] 2.18-3.98 pg/mL Normal FREE T3 3.1 Performed By: #### L501.03734, L501.9520, L506.0400 #### [facility] [address] [facility]. [place], [place], [id number] THYROID STIM HORMONE Collected: 10/22/2017 Status: F Source: SPARKS (TSH) 12:14 PM [facility] REPOSITORY TYPE CODE TESTS RESULT OUT OF RANGE REFERENCE UNITS LAB L501.9520 0.358-3.74 uIU/mL Normal TSH 3.30 Performed By: #### L501.77235, L501.9520, L506.0400 #### [facility] [address] [place], [place], [address] T4 FREE DIRECT Collected: 10/22/2017 Status: F Source: SPARKS 12:14 PM [facility] REPOSITORY TYPE CODE TESTS RESULT OUT OF RANGE REFERENCE UNITS LAB L506.0400 0.76-1.46 ng/dL Normal T4 FREE 0.95 DIRECT Performed By: #### L501.09207, L501.9520, L506.0400 #### [facility] [place], [address] THYROID PEROXIDASE AB Collected: 10/22/2017 Status: F Source: SPARKS 12:14 PM [facility] REPOSITORY TYPE CODE TESTS RESULT OUT OF RANGE REFERENCE UNITS LAB L3300.6900 0-34 IU/mL High TPO AB [phone] Result Comment: Performed at: - [facility] [id number] [employer] Ticket Seller: Luis Armando Oreilly PhD, Phone: [phone] Performed By: #### L3300.6900 #### [facility] (refer to report for specific site) refer to report for address and phone number ALLERGIES ALLERGIES DATE TYPE / CODE NAME / CODE REACTION SEVERITY SOURCE Drug ketorolac Rash Unknown [place] 8 Allergy/043999577( tromethamine/Z504903 [facility] SNOMED CT) 539(RXNORM) Hospital Repository Drug fentanyl/C364046772( Rash Unknown [place] 8 Allergy/864176590( RXNORM) [facility] SNOMED CT) Hospital Repository Miscellaneous COLD MEDICATIONS Unknown Unknown [place] 8 Allergy/312145856( [facility] SNOMED CT) Hospital Repository Miscellaneous PLASTIC TAPE Unknown Unknown [place] 8 Allergy/993362560( [facility] SNOMED CT) Hospital Repository DRUG/984521729(SNO ADHESIVE OTHER: SEE C [place] [address]) TAPE-SILICONES [facility] Main [place] Repository DRUG FENTANYL ITCHING [place] 6 INGREDI/221025737( Clinic Other SNOMED CT) [place] Repository DRUG DEXTROMETHORPHAN UNKNOWN [place] 1 INGREDI/813194710( Clinic Other SNOMED CT) [place] Repository DRUG KETOROLAC UNKNOWN [place] 1 INGREDI/161061111( Clinic Other SNOMED CT) [place] Repository DRUG PSEUDOEPHEDRINE UNKNOWN [place] 1 INGREDI/526378832( Clinic Other SNOMED CT) [place] Repository ENCOUNTERS ENCOUNTERS ADMIT/DISCHARGE ACCOUNT ADMITTING ENCOUNTER LOCATION SOURCE NUMBER CLASS 08/06/2018/08/07/20 [id number] Emergency [facility] ing:ED Repository 06/18/2018/06/19/20 [id number] Ambulatory [address] Main [place] Repository 06/13/2018/06/13/20 [id number] Ambulatory [address] Main [place] Repository 06/13/2018/06/14/20 [id number] Ambulatory [address] Main [place] Repository 06/03/2018/06/04/20 [id number] Ambulatory [address] Main [place] Repository 05/27/2018 [id number] DEBBIE CALDERON Ambulatory [facility] Other [place] Repository 05/24/2018/05/24/20 [id number] Ambulatory [place] [facility] Other [place] Repository 05/17/2018/05/20/20 [id number] Ambulatory [address] Main [place] Repository 04/24/2018 [id number] Ambulatory [facility] ing:LABSPEC Repository 04/22/2018/05/14/20 [id number] Ambulatory [address] Repository 04/18/2018 [id number] Ambulatory [facility] ing:WOBLAB Repository 04/11/2018 [id number] Ambulatory [facility] Repository 03/25/2018/03/25/20 [id number] Emergency [address] ing:ED Repository 10/29/2017/10/29/19 [id number] Emergency [address] ing:ED Repository 10/22/2017 [id number] Ambulatory [facility] ing:LAB Repository 10/22/2017/10/22/19 [id number] [facility] [place] [facility] PAYERS PAYERS ENCOUNTER GUARANTOR PAYER SUBSCRIBER SOURCE 08/06/2018 WILFRID Simms Primary Insurance:[facility] WILFRID [id number] [facility] TOBY: [place], [place] Number: [id number] [address]Nlp: [phone] [id number] Repository [phone] () Date:[id number] [address]FU: 08/06/2018 Secondary NOT GIVENUNK [place] Insurance:SELF PAY [facility]: Effective Repository Date:2018-08-06 04/24/2018 WILFRID R Primary Insurance:[facility] WILFRID R Omar [id number] COMMUNITY PLANPolicy LUZIERDOB: Community TARAN Number: [id number] [id number] Repository [address]Zqq: ([phone]) Date:6892-27-60PB [phone] () [address] [place], [place] [address]WP: 04/24/2018 Secondary NOT GIVENUNK Omar Insurance:SELF PAY [facility] Number: Effective Repository Date:2018-04-24 04/18/2018 WILFRID Primary Insurance:[facility] WILFRID [place] [id number] COMMUNITY PLANPolicy LUZIERDOB: [facility] TARAN Number: [id number], [place] [id number] Repository [address]Svs: ([phone]) Date:5189-48-83PZ [phone] () [address] [place], [place] [address]WP: 04/18/2018 Secondary NOT GIVENUNK [place] Insurance:SELF PAY [facility] Number: Effective Repository Date:2018-04-18 03/25/2018 WILFRID Primary Insurance:[facility] WILFRID Omar [id number] COMMUNITY PLANPolicy LUZIERDOB: Community TARAN Number: [id number], [place] [id number] Repository [address]Vtz: ([phone]) Date:5029-77-71PY [phone] () [address] [place] [address]: 03/25/2018 Secondary NOT GIVENUNK Omar Insurance:SELF PAY [facility] Number: Effective Repository Date:2018-03-25 10/29/2017 WILFRID Primary Insurance:[facility] WILFRID [place] [id number] [facility] PLANPolicy LUZIERDOB: Community TARAN Number: [id number], [place] [id number] Repository [address]Nvq: ([phone]) Date:6657-93-48AG [phone] () [address] [place] [address]GY: 10/29/2017 Secondary NOT GIVENUNK [place] Insurance:SELF PAY [facility] Number: Effective Repository Date:2017-10-29 10/22/2017 WILFRID Primary Insurance:[facility] WILFRID [place] [id number] [facility] PLANPolicy LUZIERDOB: Community TARAN Number: [id number], [place] [id number] Repository [address]Pbx: ([phone]) Date:1456-31-95GC [phone] () [address] [place] [address]IX: 10/22/2017 Secondary NOT GIVENUNK [place] Insurance:SELF PAY [facility] Number: Effective Repository Date:2017-10-22 10/22/2017 WILFRID Primary Insurance:[facility] WILFRID Omar [id number] [facility] HOSPITAL PLANPolicy LUZIERDOB: Community TARAN Number: [id number] [id number] Repository [id number]: ([id number]) Date:[id number] [phone] () [address] [place] [address] [id number]: 10/22/2017 Secondary NOT GIVENUNK Omar Insurance:SELF PAY [facility] Number: Effective Repository Date:2017-10-03
== END 2018-08-07 00:12 | disposition home or self-care (01) ==
LOC: ED 23:26
PROVIDERS: Emergency Provider Emergency Medicine
DX: M25.562 Pain in left knee (principal); Z98.890 Other specified postprocedural states; J45.909 Unspecified asthma, uncomplicated; Z72.0 Tobacco use
CPT/HCPCS: 73564; 85379; 99282; A4216

== ENCOUNTER 2019-03-04 17:04 | Emergency (ER) | payer MEDICAID, SELFPAY ==
[2019-03-04 11:09] VITALS: BMI 29.5
[2019-03-04 17:05] VITALS: BP 114/90; PULSE 89; RESP 17; TEMP 36.3; O2SAT 98; BMI 32.2
--- NOTE | 2019-03-04 17:23 | ED.VISSUMM ---
- ER Visit Summary Date of Service: 03/04/19 Chief Complaint: Back pain History of Present Illness: The patient is a 33 F presenting with back pain. She states this started yesterday. She states she started having mild pain in her upper back yesterday. She states it worsened this morning. She tried ibuprofen at home. She has no known injury. She has a history of previous similar symptoms in the past secondary to thoracic strain. She denies fever. Denies chest pain or shortness of breath. Denies numbness or weakness. Denies incontinence. Denies other complaints. Physical Examination: Vitals are stable. Patient is afebrile. Alert no acute distress. HEENT exam is unremarkable. Neck is supple. No meningismus Lungs are clear and equal bilaterally. Heart is regular rate and rhythm. Abdomen is soft nontender nondistended. Back: Right posterior shoulder tenderness, no midline tenderness. Painful full range of motion of the right upper extremity. No erythema or warmth. Neurovascularly intact distally Extremities are unremarkable. Skin is warm and dry. No rash No focal neurologic deficit. Normal strength and sensation Remainder of exam is unremarkable. Emergency Department Course and Treatment: Patient was given Valium. She had some improvement and was then given Lawtons. She is given prescription for short course of Lawtons for home. She is advised to follow-up with her primary care physician. Advised to return to the ED for worsening complaints. Disposition: Discharge home Impression: Thoracic strain This note was generated with [employer] dictation software. It may contain incorrect words, spelling, and punctuation that were not noted in review of the chart prior to signing ED Disposition - Plan for ED Patient: Referrals: Valentino Castellanos MD [Primary Care Provider] -
[2019-03-04] MEDS: diazePAM 5 MG Tablet PO (17:28)
--- NOTE | 2019-03-04 18:44 | ED.DEP ---
ED Disposition - Plan for ED Patient: Instructions: BACK AND NECK PAIN, General Prescriptions: Hydrocodone Bitart/Apap 5-325 [[place] 5MG-325MG] 1 tablet PO Q6H PRN PRN 3 Days #10 tablet PRN Reason: Pain Referrals: Valentino Castellanos MD [Primary Care Provider] -
[2019-03-04] MEDS: HYDROcodone Bitartrate/Apap 5/325 Tablet PO (18:55)
[2019-03-04 18:56] VITALS: BP 111/88; PULSE 78; RESP 16; O2SAT 99
== END 2019-03-04 18:56 | disposition home or self-care (01) ==
LOC: ED 17:25
PROVIDERS: Emergency Provider Emergency Medicine; Family Provider Family Medicine; PCP Family Medicine
DX: S29.012A Strain of muscle and tendon of back wall of thorax, initial encounter (principal); X58.XXXA Exposure to other specified factors, initial encounter; Y93.9 Activity, unspecified; Y92.9 Unspecified place or not applicable; Z72.0 Tobacco use
CPT/HCPCS: 99283

== ENCOUNTER 2019-03-20 13:15 | Emergency (ER) | payer MEDICAID, SELFPAY ==
[2019-03-20 13:16] VITALS: BP 134/105; PULSE 110; RESP 20; TEMP 36.4; O2SAT 99; BMI 32.0
[2019-03-20 13:29] VITALS: PULSE 98; RESP 18; O2SAT 99
--- NOTE | 2019-03-20 13:55 | CT_ITS ---
STUDY: CT ABDOMEN AND PELVIS WITHOUT CONTRAST REASON FOR EXAM: Female, 33 years old. Sudden onset of right lower quadrant pain. RADIATION DOSAGE (If Supplied By Facility): CTDIvol = ( 14.76 ) mGy, DLP = ( 796.35 ) mGycm TECHNIQUE: Transaxial images were obtained from the dome of the diaphragm to the symphysis pubis without oral contrast, and without intravenous contrast. Sagittal and coronal images were reconstructed. Individualized dose optimization techniques were used for this CT. COMPARISON: None. FINDINGS: The visualized lung bases are unremarkable. The visualized portions of the heart are within normal limits. Normal liver. The patient is status post cholecystectomy. Normal spleen. Normal pancreas. Normal bilateral adrenal glands. Normal right kidney. Normal left kidney. Surgical sutures are seen along the greater curvature of the stomach in keeping with history of prior gastric diverticulum resection. Normal small intestine. There are scattered colonic diverticula consistent with diverticulosis. The appendix is visualized and appears normal. Normal abdominal aorta. Normal inferior vena cava. Normal retroperitoneum. Normal urinary bladder. There is absence of the uterus consistent with a prior hysterectomy. Normal abdominal wall. Normal osseous structures. CT/Abdomen/Pelvis without Cont IMPRESSION: Status post cholecystectomy. No acute abnormality is seen. Scattered sigmoid diverticula. Electronically Signed: Nicholas Ty, at 14:38 EDT , Service support ,
[2019-03-20] MEDS: Morphine 4 MG/ML Syringe IV ×2 (14:00→14:58)
[2019-03-20] MEDS: Ondansetron 4 MG/2 ML Vial IV (14:00)
--- NOTE | 2019-03-20 14:03 | ED.VIS.GI ---
History of Present Illness Chief Complaint: Abd Pain Informant: Patient - Abdominal Pain/Flank Pain Onset: Hours - 1.5 Context: Sudden Onset - at rest Timing: Continuous, Waxes and wanes Quality: Aching Location: Right Flank Current Severity: Severe Maximum Severity: Severe Worsened by: Nothing Relieved by: Nothing - Nausea/Vomiting/Emesis GI Symptom: Nausea. Negative for: Vomiting - Diarrhea/Melena/Hematochezia GI Symptom: Negative for: Diarrhea Associated Symptoms: Negative for: Dysuria, Frequency, Hematuria, Urgency Narrative: Sudden onset severe right lower quadrant pain radiating into her right low back. Never had this before. Has had prior hysterectomy with ovaries as well for polycystic ovarian syndrome. Prior similar symptoms: No Recent Illness/Hospitalization: No - Past Medical History (1) PCOS (polycystic ovarian syndrome) Status: Chronic Past Medical History - Allergies and Home Meds Allergies/Adverse Reactions: Allergies fentanyl Allergy (Verified 03/20/19 13:16) Rash ketorolac tromethamine [From Toradol] Allergy (Verified 03/20/19 13:16) Rash COLD MEDICATIONS Adverse Reaction (Uncoded 03/20/19 13:16) Unknown PLASTIC TAPE Adverse Reaction (Uncoded 03/20/19 13:16) Unknown Primary Care Physician: Valentino Castellanos MD [Primary Care Provider] - Surgical History: cholecystectomy, hysterectomy Smoking Status: Current every day smoker Drugs: None Review of Systems General: Denies: Chills, Fever, Sweats Eyes: Denies: Visual changes - bilaterally, Diplopia ENT: Denies: Rhinorrhea, Sore throat Cardiovascular: Denies: Chest pain, Palpitations Respiratory: Denies: Dyspnea, Cough, Dyspnea on exertion Gastrointestinal: Reports: Abdominal pain, Nausea. Denies: Vomiting, Diarrhea, Melena, Hematochezia Genitourinary: Denies: Dysuria, Hematuria, Frequency Musculoskeletal: Reports: Back pain. Denies: Extremity Pain Skin: Denies: Rash, Wounds Neurological: Denies: Headache, Weakness, Numbness Physical Exam Vital Signs/Narrative: Vital Signs Temp Pulse Resp BP Pulse Ox 03/20/19 13:29 98 18 99 03/20/19 13:16 97.5 F L 110 H 20 H 134/105 H 99 Inital Vital Signs reviewed: Yes General: Well nourished, Well developed, Acute Distress - painful Head: Normocephalic, Atraumatic Eyes: Perrl, EOMI ENT: Moist mucous membranes, No rhinorrhea Neck: Supple, Nontender Cardiovascular: Regular rate, Regular rhythm, No murmurs Respiratory: No distress, CTA bilaterally, Chest nontender Abdomen: Soft, Nontender, Nondistended, Normal bowel sounds Back: Normal Inspection, CVA tenderness - right only, - - no rash Extremities: Nontender, No edema Skin: Normal color, No rash, No Trauma Neurological: Alert, Oriented x3, Cranial nerves II-XII grossly intact, Normal Strength, Normal Sensation Psychological: Normal affect, Normal Mood Diagnostic/Tx/Re-eval Impressions Abdomen/Pelvis CT 03/20/19 13:55 IMPRESSION: Status post cholecystectomy. No acute abnormality is seen. Scattered sigmoid diverticula. Electronically Signed: Nicholas Ty, at 14:38 EDT , Service support , 03/20/19 13:55 Abdomen/Pelvis without Cont [CT] Stat Laboratory Results 03/20/19 03/20/19 03/20/19 13:30 13:30 14:27 WBC 6.7 RBC 4.90 Hgb 14.9 Hct 42.9 MCV 87.6 MCH 30.4 MCHC 34.7 RDW 12.5 RDW Differential 39.8 Plt Count 256 MPV 10.2 Immature Gran % (Auto) 0.300 Neut % (Auto) 57.1 Lymph % (Auto) 32.5 Thayer % (Auto) 4.3 Eos % (Auto) 5.1 H Baso % (Auto) 0.7 Absolute Neuts (auto) 3.8 Absolute Lymphs (auto) 2.17 Total Counted Not Reportable Sodium 139 Potassium 4.0 Chloride 108 H Carbon Dioxide 24.0 Anion Gap 7 BUN 7 Creatinine 0.83 Estim Creat Clear Calc 100.75 Est GFR (MDRD) Af Amer 102 Est GFR (MDRD) Non-Af 84 BUN/Creatinine Ratio 8.5 L Glucose 101 Calcium 9.6 Urine Color Yellow Urine Clarity Clear Urine pH 6.0 Ur Specific [place] 1.010 Urine Protein Negative Urine Glucose (UA) Normal Urine Ketones Negative Urine Occult Blood Negative Urine Nitrite Negative Urine Bilirubin Negative Urine Urobilinogen Normal Ur Leukocyte Esterase Negative Urine RBC 0-5 SEEN Urine WBC 0 SEEN Ur Squamous Epith Cells 0-5 SEEN Urine Bacteria 0 SEEN Urine Mucus 0 SEEN - Medical Decision Making Initial urinalysis and CT flank were ordered as I suspected ureterolithiasis as the likely cause of her symptoms, given her textbook presentation of it, although she has never had it before. Her symptoms are consistent with renal colic. However, urinalysis is normal and CT is also unremarkable, aside from some scattered sigmoid diverticula without diverticulitis, she has no pain or tenderness in this area anyway, a normal appendix was noted and normal renal anatomy with no hydronephrosis or abnormal calculi. Morphine helped her pain tremendously, however it returned and so she was treated again and remained stable. I added blood work, it is unremarkable. She can remember nothing that she did to explain musculoskeletal pain. At this time, she is clinically and hemodynamically stable, feeling better, I do not have a clear explanation for her discomfort, certainly a past kidney stone is not able to be ruled out although typically would show residual hydronephrosis if it was present before. I explained this to her and reasons to follow-up or return. She is comfortable with that plan. ED Disposition - Plan for ED Patient: Disposition: Home or Assisted Living Diagnosis: Acute right flank pain Instructions: FLANK PAIN, Uncertain Cause Prescriptions: traMADol [Ultram] 50 mg PO Q4H PRN PRN 2 Days #12 tab PRN Reason: Pain Prescription Printed Referrals: Valentino Castellanos MD [Primary Care Provider] - 3-5 Days if not improving
[2019-03-20 14:32] LABS: Bacteria 0 SEEN /hpf (None Seen); Mucous, Urine 0 SEEN /hpf (<or=2+); White Blood Cells 0 SEEN /hpf (0-5)
[2019-03-20 14:34] LABS: Color, Urine Yellow (Yellow); Glucose, Dipstick Normal (Normal); Ketone-Dipstick Negative (Negative); Leukocyte Esterase-Dipstick Negative /ul (Negative); Nitrite-Dipstick Negative (Negative); Occult Blood-Urine Negative /ul (Negative); Protein-Dipstick Negative (Negative); Urine Bilirubin Dipstick Negative (Negative); Urine Clarity Clear (Clear); Urine Urobilinogen Normal (Normal)
[2019-03-20 14:44] LABS: Red Blood Cells-Urine 0-5 SEEN /hpf (0-5); Squamous Epithelial Cells - UA 0-5 SEEN /hpf (5-10)
[2019-03-20 15:00] LABS: Absolute Lymphocyte Count 2.17 X10^3/ul (0.83-4.51); Absolute Neutrophil Count 3.8 X10^3/uL (2.0-7.7); Basophil# 0.05 X10^3/uL; Basophil% 0.7 % (0-1); Eosinophil# 0.34 X10^3/uL; Eosinophils% 5.1 % (0-5); Hematocrit 42.9 % (37-47); Hemoglobin 14.9 g/dl (12.0-15.0); Lymphocyte # 2.17 X10^3/ul (4.0); Lymphocyte % 32.5 % (19-41); Mean Corp Hgb Conc 34.7 g/gl (32-36); Mean Corpuscular Hgb 30.4 pg (27.0-32.0); Mean Corpuscular Volume 87.6 fL (81-99); Mean Platelet Vol. 10.2 fl (6.2-12.0); Monocyte# 0.29 X10^3/uL; Monocyte% 4.3 % (0-10); Neutrophil % 57.1 % (47-70); Platelet Count 256 K/mm3 (150-450); RBC Distribution Width CV 12.5 % (11.6-14.6); RBC Distribution Width SD 39.8 fl (35.1-43.9); White Blood Count 6.7 K/mm3 (4.4-11.0)
[2019-03-20 15:01] LABS: POSITIVE COUNT NO; POSITIVE DIFFERENTIAL NO; POSITIVE MORPHOLOGY NO
[2019-03-20 15:02] LABS: Anion Gap 7 (5-15); BUN 7 mg/dL (7-18); BUN/Creat Ratio 8.5 RATIO (10-20); Calcium,Total 9.6 mg/dL (8.5-10.1); Chloride 108 mmol/L (98-107); Creatinine, Serum 0.83 mg/dL (0.55-1.02); EST Glomerular Filtration Rate 84 mL/min (>60); Est Glom Filt Rate - Afr Amer 102 mL/min (>60); Estimated Creatinine Clearance 100.75 ml/min; Glucose 101 mg/dL (74-106); Sodium Level 139 mmol/L (136-145)
[2019-03-20 16:02] VITALS: BP 120/85; PULSE 78; RESP 18
== END 2019-03-20 16:03 | disposition home or self-care (01) ==
PROVIDERS: Emergency Provider Emergency Medicine; Family Provider Family Medicine; PCP Family Medicine
DX: R10.31 Right lower quadrant pain (principal); K57.30 Diverticulosis of large intestine without perforation or abscess without bleeding; E28.2 Polycystic ovarian syndrome; Z90.49 Acquired absence of other specified parts of digestive tract; F17.200 Nicotine dependence, unspecified, uncomplicated
CPT/HCPCS: 74176; 80048; 81001; 85025; 96374; 96375; 96376; 99284; J2405

== ENCOUNTER 2019-07-16 20:16 | Emergency (ER) | payer MEDICAID, SELFPAY ==
[2019-03-31 09:43] VITALS: BMI 32.0
[2019-07-16 20:16] VITALS: BP 145/84; PULSE 108; RESP 20; TEMP 37.1; O2SAT 98; BMI 29.7
--- NOTE | 2019-07-16 20:38 | RAD_ITS ---
STUDY: X-RAY CHEST REASON FOR EXAM: Female, 34 years old. Upper respiratory infection TECHNIQUE: Single frontal view of the chest. COMPARISON: None. FINDINGS: Cardiac silhouette unremarkable. Pulmonary vascularity unremarkable. Aorta unremarkable. No focal airspace opacities. No pleural effusions. Upper abdomen unremarkable. Osseous structures intact. No pneumothorax. RAD/Chest 1 View (Portable) IMPRESSION: No acute cardiopulmonary findings Electronically Signed: Guerrero Jackson, at 21:16 EST Tel , Service support ,
--- NOTE | 2019-07-16 20:38 | EKG12_ITS ---
Test Reason : COLD SYMPTOMS Blood Pressure : / mmHG Vent. Rate : 096 BPM Atrial Rate : 096 BPM P-R Int : 148 ms QRS Dur : 094 ms QT Int : 360 ms P-R-T Axes : 040 002 019 degrees QTc Int : 454 ms Normal sinus rhythm Normal ECG Confirmed by RADHA ZHONG, IRIS ([id number]), online content editor ANNIKA HAMILTON ([id number]) on 07/22/2019 2:30:05 PM Referred By: Confirmed By:IRIS GARCIA MD
[2019-07-16 20:54] LABS: Absolute Lymphocyte Count 1.58 X10^3/uL (0.83-4.51); Absolute Neutrophil Count 5.3 X10^3/uL (2.0-7.7); Basophil# 0.07 X10^3/uL; Basophil% 0.9 % (0-1); Eosinophil# 0.29 X10^3/uL; Eosinophils% 3.7 % (0-5); Hematocrit 42.7 % (37-47); Hemoglobin 14.8 g/dL (12.0-15.0); Lymphocyte # 1.58 X10^3/ul (4.0); Mean Corp Hgb Conc 34.7 g/dL (32-36); Mean Corpuscular Hgb 30.3 pg (27.0-32.0); Mean Corpuscular Volume 87.5 fL (81-99); Mean Platelet Vol. 9.5 fl (6.2-12.0); Monocyte# 0.61 X10^3/uL; Monocyte% 7.7 % (0-10); NRBC Flagged by Analyzer 0 % (0-5); Neutrophil # 5.31 X10^3/uL (2.7-7.7); Neutrophil % 67.3 % (47-70); Platelet Count 259 K/mm3 (150-450); RBC Distribution Width SD 38.8 fl (35.1-43.9); Red Blood Count 4.88 M/mm3 (4.2-5.4); White Blood Count 7.9 K/mm3 (4.4-11.0)
--- NOTE | 2019-07-16 20:56 | ED.DCSUM_ITS ---
- ER Visit Summary Date of Service: 07/16/19 Chief Complaint: Cough, congestion History of Present Illness: The patient is a 34 F presenting with cough, congestion. Patient states this started yesterday. She states her daughter also has similar complaints. She has cough, congestion, bilateral ear pain. She states she has chest pain with cough. She has mild shortness of breath. Denies abdominal pain. Denies fever. Denies other complaints. Physical Examination: Vitals are stable. Patient is afebrile. Alert no acute distress. HEENT exam is unremarkable. Pharynx is normal. TMs normal bilaterally. Neck is supple. No meningismus Lungs are clear and equal bilaterally. Heart is regular rate and rhythm. Abdomen is soft nontender nondistended. Extremities are unremarkable. Skin is warm and dry. No focal neurologic deficit. Remainder of exam is unremarkable. Emergency Department Course and Treatment: EKG is sinus rate of 96 with no acute ischemic changes. CBC, chemistries unremarkable. Troponin is negative. Chest x-ray shows no acute process. Patient is given prescription for Tessalon Perles. She is advised to follow-up with her primary care physician. Advised return to ED for worsening complaints. Disposition: Discharge home Impression: URI This note was generated with [employer] dictation software. It may contain incorrect words, spelling, and punctuation that were not noted in review of the chart prior to signing ED Disposition - Plan for ED Patient: Instructions: VIRAL SYNDROME (Adult) Prescriptions: Benzonatate [Tessalon Perle] 200 mg PO TID PRN PRN #20 cap PRN Reason: Cough Prescription Printed Referrals: Valentino Castellanos MD [Primary Care Provider] -
[2019-07-16 21:12] LABS: Anion Gap 8 (5-15); BUN 9 mg/dL (7-18); BUN/Creat Ratio 10.7 RATIO (10-20); Calcium,Total 9.8 mg/dL (8.5-10.1); Chloride 106 mmol/L (98-107); Creatinine, Serum 0.84 mg/dL (0.55-1.02); EST Glomerular Filtration Rate 82 mL/min (>60); Est Glom Filt Rate - Afr Amer 99 mL/min (>60); Estimated Creatinine Clearance 98.62 ml/min; Glucose 92 mg/dL (74-106); Potassium 3.7 mmol/L (3.5-5.1); Sodium Level 140 mmol/L (136-145)
--- NOTE | 2019-07-16 22:01 | ED.DEP ---
ED Disposition - Plan for ED Patient: Instructions: VIRAL SYNDROME (Adult) Prescriptions: Benzonatate [Tessalon Perle] 200 mg PO TID PRN PRN #20 capsule PRN Reason: Cough Referrals: Valentino Castellanos MD [Primary Care Provider] -
[2019-07-16] MEDS: Acetaminophen 500 MG Tablet 1000 MG PO (22:12)
[2019-07-16 22:14] VITALS: RESP 18
== END 2019-07-16 22:14 | disposition home or self-care (01) ==
LOC: ED 20:54
PROVIDERS: Emergency Provider Emergency Medicine; Family Provider Family Medicine; PCP Family Medicine
DX: J06.9 Acute upper respiratory infection, unspecified (principal); Z72.0 Tobacco use
CPT/HCPCS: 71045; 80048; 84484; 85025; 93005; 99285; A4216

== ENCOUNTER 2019-08-12 01:02 | Emergency (ER) | payer MEDICAID, SELFPAY ==
[2019-08-12 01:03] VITALS: BP 107/85; PULSE 90; RESP 18; TEMP 36.6; O2SAT 97; BMI 32.3
--- NOTE | 2019-08-12 01:18 | CT_ITS ---
STUDY: CT ABDOMEN AND PELVIS WITHOUT CONTRAST REASON FOR EXAM: Female, 34 years old. Right-sided back pain with history of cholecystectomy and single oophorectomy. RADIATION DOSAGE (If Supplied By Facility): CTDIvol = ( 14.27 ) mGy, DLP = ( 780.96 ) mGycm TECHNIQUE: Transaxial images were obtained from the dome of the diaphragm to the symphysis pubis without oral contrast, and without intravenous contrast. Sagittal and coronal images were reconstructed. Individualized dose optimization techniques were used for this CT. COMPARISON: 03/20/2019. FINDINGS: There is bilateral lower lobe atelectasis with minimal bilateral effusions. The visualized portions of the heart are within normal limits. Normal liver. Gallbladder not visualized consistent with known history of prior cholecystectomy. Normal spleen. Normal pancreas. Normal bilateral adrenal glands. Normal right kidney. Normal left kidney. Normal visualized stomach. Normal small intestine. Mild diverticulosis along the sigmoid with no signs of diverticulitis. The appendix is visualized and appears normal. Normal abdominal aorta. Normal inferior vena cava. Normal retroperitoneum. Normal urinary bladder. There is absence of the uterus consistent with a prior hysterectomy. Normal abdominal wall. Normal osseous structures. CT/Abdomen/Pelvis without Cont IMPRESSION: Status post cholecystectomy and hysterectomy. Remainder of abdominal viscera within normal limits. No acute appendicitis or bowel obstruction. No focal inflammatory process throughout the gastrointestinal tract. Electronically Signed: Ebony Escoto MD at 3:19 EST , Service support ,
[2019-08-12 01:25] LABS: Absolute Lymphocyte Count 2.93 X10^3/uL (0.83-4.51); Absolute Neutrophil Count 4.8 X10^3/uL (2.0-7.7); Basophil# 0.06 X10^3/uL; Basophil% 0.7 % (0-1); Eosinophil# 0.39 X10^3/uL; Eosinophils% 4.5 % (0-5); Hematocrit 41.8 % (37-47); Hemoglobin 14.8 g/dL (12.0-15.0); Lymphocyte # 2.93 X10^3/ul (4.0); Mean Corp Hgb Conc 35.4 g/dL (32-36); Mean Corpuscular Hgb 30.8 pg (27.0-32.0); Mean Corpuscular Volume 86.9 fL (81-99); Mean Platelet Vol. 9.8 fl (6.2-12.0); Monocyte# 0.43 X10^3/uL; NRBC Flagged by Analyzer 0 % (0-5); Neutrophil # 4.79 X10^3/uL (2.7-7.7); Neutrophil % 55.6 % (47-70); Platelet Count 277 K/mm3 (150-450); RBC Distribution Width SD 38.1 fl (35.1-43.9); Red Blood Count 4.81 M/mm3 (4.2-5.4); White Blood Count 8.6 K/mm3 (4.4-11.0)
[2019-08-12 01:25] LABS: Bacteria 0 SEEN /hpf (None Seen); Mucous, Urine 0 SEEN /hpf (<or=2+); Red Blood Cells-Urine 0 SEEN /hpf (0-5)
[2019-08-12 01:28] LABS: Color, Urine Yellow (Yellow); Glucose, Dipstick Normal (Normal); Ketone-Dipstick Negative (Negative); Leukocyte Esterase-Dipstick Negative /ul (Negative); Nitrite-Dipstick Negative (Negative); Occult Blood-Urine Negative /ul (Negative); Protein-Dipstick Negative (Negative); Specific Gravity, Urine 1.015 (1.002-1.030); Urine Bilirubin Dipstick Negative (Negative); Urine Clarity Clear (Clear); Urine Urobilinogen Normal (Normal)
[2019-08-12 01:33] LABS: Squamous Epithelial Cells - UA 25-50 SEEN /hpf (5-10); White Blood Cells 0-5 SEEN /hpf (0-5)
[2019-08-12] MEDS: 0.9% Normal Saline 1,000 ML 1000 ML IV (01:36)
[2019-08-12] MEDS: Ondansetron 4 MG/2 ML Vial IV (01:36)
[2019-08-12] MEDS: Morphine 4 MG/ML Syringe IV ×2 (01:36→03:19)
[2019-08-12 01:38] LABS: ALB/GLOB Ratio 1.1 RATIO (0.9-2.4); AST(SGOT) 16 U/L (15-37); Alanine Aminotransfer ALT/SGPT 44 U/L (13-56); Alkaline Phosphatase 69 U/L (45-117); Anion Gap 7 (5-15); BUN 11 mg/dL (7-18); BUN/Creat Ratio 12.3 RATIO (10-20); Chloride 109 mmol/L (98-107); Creatinine, Serum 0.89 mg/dL (0.55-1.02); EST Glomerular Filtration Rate 77 mL/min (>60); Est Glom Filt Rate - Afr Amer 93 mL/min (>60); Estimated Creatinine Clearance 93.08 ml/min; Globulin 3.5 g/dL (2.2-4.2); Glucose 120 mg/dL (74-106); Lipase 195 U/L (73-393); Potassium 3.5 mmol/L (3.5-5.1); Protein, Total 7.5 g/dL (6.4-8.2); Sodium Level 141 mmol/L (136-145)
[2019-08-12 02:18] VITALS: RESP 18
--- NOTE | 2019-08-12 03:28 | ED.DCSUM_ITS ---
- ER Visit Summary Date of Service: 08/12/19 Chief Complaint: Right flank pain History of Present Illness: The patient is a 34 F with right flank pain that started today relatively suddenly. Nothing seemed to bring it on. Nothing seems to make it worse. The pain radiates down into her right thigh anteriorly. It does not radiate past the knee. She denies any weakness or numbness. Denies any urinary or THEATRICAL DRESSER symptoms. Denies any diarrhea or bowel changes. Denies any neurologic symptoms like weakness or numbness or bowel changes. She has a history of PCOS and kidney stones among her other history. She also has a history of cholecystectomy, hysterectomy, gastric diverticulum surgery, and others. Physical Examination: Afebrile and vital signs unremarkable. Patient appears uncomfortable, trying to brace herself. She is alert and oriented. Heart regular. Lungs clear. Abdomen soft. Right CVA tender to palpation. Good strength and sensation in her legs. Test Results: CBC, CMP, lipase, urinalysis all unremarkable. CT showed postoperative changes, but nothing acute. Emergency Department Course and Treatment: Patient was treated with fluids, morphine, and Zofran while awaiting results. This was concerning for ureteral colic. She was allergic to Toradol. Laboratory studies, urinalysis, and CT did not indicate any sign of kidney stone, bleeding, or infection. Her work-up was reassuring. I suspect this is likely myofascial pain. She was treated with Norflex as well. Plan will be discharged with outpatient care. Prescription for Flexeril. Follow-up with primary care. Return for any new or worsening issues. Treatment Plan: As above Disposition: Discharge Impression: 1. Right flank pain This note was generated with [email or web address] dictation software. It may contain incorrect words, spelling, and punctuation that were not noted in review of the chart prior to signing ED Disposition - Plan for ED Patient: Referrals: Valentino Castellanos MD [Primary Care Provider] -
--- NOTE | 2019-08-12 03:30 | ED.DEP ---
ED Disposition - Plan for ED Patient: Instructions: BACK PAIN (Acute or Chronic) Prescriptions: cycloBENZAPRine HCl [Flexeril] 10 mg PO TID PRN #20 tab PRN Reason: Muscle Spasm Prescription Printed Referrals: Valentino Castellanos MD [Primary Care Provider] -
[2019-08-12] MEDS: Orphenadrine 60 MG/2 ML Ampul IM (03:34)
[2019-08-12 03:57] VITALS: BP 102/60; PULSE 78; RESP 16; O2SAT 96
== END 2019-08-12 03:58 | disposition home or self-care (01) ==
LOC: ED 01:29
PROVIDERS: Emergency Provider Emergency Medicine; Family Provider Family Medicine; PCP Family Medicine
DX: R10.9 Unspecified abdominal pain (principal); Z90.49 Acquired absence of other specified parts of digestive tract; Z90.710 Acquired absence of both cervix and uterus; Z87.442 Personal history of urinary calculi
CPT/HCPCS: 74176; 80053; 81001; 83690; 85025; 96361; 96372; 96374; 96375; 96376; 99283; J7030; A4216; J2405

== ENCOUNTER 2019-09-18 21:56 | Emergency (ER) | payer MEDICAID, SELFPAY ==
[2019-09-18 21:57] VITALS: BP 91/48; PULSE 92; RESP 18; TEMP 36.8; O2SAT 98; BMI 33.0
--- NOTE | 2019-09-18 22:09 | CT_ITS ---
STUDY: CT ABDOMEN AND PELVIS WITH CONTRAST REASON FOR EXAM: Female, 34 years old. LUQ/LT FLANK PAIN,NAUSEA AND VOMITING x several days -- HX:IBS,PCOS SURGERY:CHOLECYSTECTOMY,HYSTERECTOMY,TUBAL, -- GASTRIC DIVERTICULUM RADIATION DOSAGE (If Supplied By Facility): CTDIvol = ( 24.94 ) mGy, DLP = ( 1266.90 ) mGycm TECHNIQUE: Transaxial images were obtained from the dome of the diaphragm to the symphysis pubis without oral contrast. IV 100mL Isovue-300 was administered. Sagittal and coronal images were reconstructed. Individualized dose optimization techniques were used for this CT. COMPARISON: None. FINDINGS: The visualized lung bases are unremarkable. The visualized portions of the heart are within normal limits. Normal liver. Gallbladder surgically absent. Normal spleen. Normal pancreas. Normal bilateral adrenal glands. Normal right kidney. Normal left kidney. Normal visualized stomach. Normal small intestine. Normal colon. The appendix is visualized and appears normal. Normal abdominal aorta. Normal inferior vena cava. Normal retroperitoneum. Normal urinary bladder. Normal abdominal wall. Normal osseous structures. CT/Abdomen/Pelvis W IV Cont ONLY IMPRESSION: 1. No evidence of acute intra-abdominal process or focal inflammation. No evidence of bowel dilatation or air-fluid level to suggest ileus versus obstruction. No evidence of nephrolithiasis or hydronephrosis. Electronically Signed: Miguel Lara DO at 23:33 EST , Service support ,
--- NOTE | 2019-09-18 22:10 | ED.VIS.GI ---
History of Present Illness Chief Complaint: Flank Pain Informant: Patient - Abdominal Pain/Flank Pain Onset: Hours - 1-2 Context: Sudden Onset Timing: Continuous Quality: - - pain Location: LUQ, Left Flank Current Severity: Severe Maximum Severity: Severe Worsened by: Car ride Relieved by: Nothing - Nausea/Vomiting/Emesis GI Symptom: Nausea, Vomiting Onset: Days - 3-4 Quality: Nonbilious. Negative for: Blood streaks, Coffee ground, Hematemesis Severity: Moderate - Diarrhea/Melena/Hematochezia GI Symptom: Negative for: Diarrhea, Melena, Hematochezia Associated Symptoms: - - Dark urine, decreased output. Negative for: Dysuria, Frequency, Hematuria, Urgency Narrative: Sudden onset severe pain about an hour prior to arrival. Has had kidney stones in the past, states this feels somewhat similar but too high. Also in the same location that she had pain with a gastric diverticulum that was surgically removed in the past. Prior to the onset of this pain, she has been vomiting for couple days and had a fever up to 103 one time. No diarrhea, no pain prior to this pain starting an hour or so ago. - Past Medical History (1) Hiatal hernia Status: Chronic (2) PCOS (polycystic ovarian syndrome) Status: Chronic Past Medical History - Allergies and Home Meds Allergies/Adverse Reactions: Allergies fentanyl Allergy (Verified 09/18/19 22:00) Rash ketorolac tromethamine [From Toradol] Allergy (Verified 09/18/19 22:00) Rash COLD MEDICATIONS Adverse Reaction (Uncoded 09/18/19 22:00) Unknown PLASTIC TAPE Adverse Reaction (Uncoded 09/18/19 22:00) Unknown Primary Care Physician: Valentino Castellanos MD [Primary Care Provider] - Surgical History: cholecystectomy, hysterectomy, - - gastric diverticulum resection Lives: With Family Smoking Status: Current every day smoker Drugs: None Review of Systems General: Reports: Fever, Malaise. Denies: Chills, Sweats Eyes: Denies: Visual changes - bilaterally, Diplopia ENT: Denies: Bilateral ear pain, Rhinorrhea, Sore throat Cardiovascular: Denies: Chest pain, Palpitations Respiratory: Reports: Dyspnea. Denies: Cough, Sputum, Orthopnea Gastrointestinal: Reports: Abdominal pain, Nausea, Vomiting. Denies: Diarrhea, Melena, Hematochezia Genitourinary: Denies: Dysuria, Hematuria, Frequency Musculoskeletal: Reports: Back pain. Denies: Neck pain, Swelling, Extremity Pain Skin: Denies: Rash, Wounds Neurological: Denies: Headache, Weakness, Numbness Physical Exam Vital Signs/Narrative: Vital Signs Temp Pulse Resp BP Pulse Ox 09/18/19 21:57 98.3 F 92 18 91/48 L 98 Inital Vital Signs reviewed: Yes General: Well nourished, Well developed, Obese, Acute Distress - painful Head: Normocephalic, Atraumatic Eyes: Perrl, EOMI ENT: Moist mucous membranes, No rhinorrhea Neck: Supple, Nontender, No lymphadenopathy, No JVD, - - trachea midline Cardiovascular: Regular rate, Regular rhythm, No murmurs Respiratory: No distress, CTA bilaterally, Chest nontender Abdomen: Soft, Nondistended, Normal bowel sounds, Tender - LUQ > RLQ, Guarding - LUQ only, Rebound tenderness Back: Nontender, Normal Inspection. Negative for: CVA tenderness Extremities: Nontender, No edema. Negative for: Calf Tenderness Skin: Normal color, No rash, No Trauma Neurological: Alert, Oriented x3, Cranial nerves II-XII grossly intact, Normal Strength, Normal Sensation, Normal Gait Psychological: Normal affect, Normal Mood Diagnostic/Tx/Re-eval Impressions Abdomen/Pelvis CT 09/18/19 22:09 IMPRESSION: 1. No evidence of acute intra-abdominal process or focal inflammation. No evidence of bowel dilatation or air-fluid level to suggest ileus versus obstruction. No evidence of nephrolithiasis or hydronephrosis. Electronically Signed: Miguel Lara DO at 23:33 EST , Service support , Chest X-Ray 09/18/19 22:15 IMPRESSION: Atelectatic changes above with no evidence of acute process. Electronically Signed: Miguel Lara DO at 22:44 EST , Service support , 09/18/19 22:09 Abdomen/Pelvis W IV Cont ONLY [CT] Stat 09/18/19 22:15 Chest 1 View (Portable) [RAD] Stat Laboratory Results 09/18/19 09/18/19 09/18/19 22:20 22:24 22:24 WBC 6.9 RBC 4.51 Hgb 13.7 Hct 39.4 MCV 87.4 MCH 30.4 MCHC 34.8 RDW Std Deviation 38.4 RDW Coeff of Anushka 11.9 Plt Count 247 MPV 9.6 Immature Gran % (Auto) 0.400 Neut % (Auto) 56.8 Lymph % (Auto) 33.1 [place] % (Auto) 4.9 Eos % (Auto) 4.1 Baso % (Auto) 0.7 Absolute Neuts (auto) 3.9 Absolute Lymphs (auto) 2.28 Nucleated RBC % 0 Sodium 142 Potassium 3.4 L Chloride 112 H Carbon Dioxide 24.0 Anion Gap 6 BUN 11 Creatinine 0.83 Estim Creat Clear Calc 99.81 Est GFR (MDRD) Af Amer 102 Est GFR (MDRD) Non-Af 84 BUN/Creatinine Ratio 13.3 Glucose 138 H Calcium 8.6 Lipase 194 Urine Color Yellow Urine Clarity Clear Urine pH 7.0 Ur Specific [place] 1.010 Urine Protein Negative Urine Glucose (UA) Normal Urine Ketones Negative Urine Occult Blood Negative Urine Nitrite Negative Urine Bilirubin Negative Urine Urobilinogen Normal Ur Leukocyte Esterase Negative Urine RBC 0 SEEN Urine WBC 0-5 SEEN Ur Squamous Epith Cells 5-10 SEEN Urine Bacteria 2+ Urine Mucus 0 SEEN - Medical Decision Making With borderline low blood pressure and rebound tenderness, along with sudden onset of symptoms, I was initially concerned about a perforated stomach ulcer or viscus, so a stat portable chest x-ray was obtained to rule out free air, but it was negative. She was treated with IV fluid bolus, morphine, Zofran, and further work-up was performed including CT abdomen/pelvis. It returned normal. She was still uncomfortable after the initial medications so plan is to give Bentyl and a GI cocktail prior to discharge, as after further discussion with her she states that ever since she had her gastric diverticulum resection, she has felt acidy and has not been taking the medications that she thinks they wanted her to. Will d/c on promethazine, PPI, and bentyl. She is well-appearing and in no distress. She will follow up. ED Disposition - Plan for ED Patient: Disposition: Home or Assisted Living Diagnosis: Acute gastritis without bleeding, LUQ abdominal pain Instructions: GASTRITIS vs. ULCER Prescriptions: Dicyclomine HCl [Bentyl] 20 mg PO Q6H PRN #20 cap PRN Reason: abdominal pain Prescription Printed proMETHazine tablet [Phenergan] 25 mg PO Q6H PRN PRN #10 tab PRN Reason: Nausea Prescription Printed Pantoprazole Sodium [Protonix] 40 mg PO DAILY #30 tab Prescription Printed Referrals: Valentino Castellanos MD [Primary Care Provider] - 3-5 Days if not improving
--- NOTE | 2019-09-18 22:15 | RAD_ITS ---
STUDY: X-RAY CHEST REASON FOR EXAM: Female, 34 years old. SOB TECHNIQUE: Single AP portable view of the chest. COMPARISON: 16 July 2019. FINDINGS: Chronic changes versus atelectatic changes left lower lung similar to prior exam. There is no demonstrated pleural abnormality. Normal size heart. Normal mediastinum and radha. Normal visualized pulmonary arteries. Normal visualized aortic arch and descending thoracic aorta. Normal visualized thoracic spine. Normal visualized ribs, clavicles, and shoulders. There is no demonstrated abnormality of the visualized soft tissue structures of the upper abdomen. RAD/Chest 1 View (Portable) IMPRESSION: Atelectatic changes above with no evidence of acute process. Electronically Signed: Miguel Lara DO at 22:44 EST , Service support ,
[2019-09-18] MEDS: Morphine 4 MG/ML Syringe IV (22:24)
[2019-09-18] MEDS: Ondansetron 4 MG/2 ML Vial IV (22:24)
[2019-09-18] MEDS: 0.9% Normal Saline 1,000 ML 1000 ML IV (22:24)
[2019-09-18 22:37] LABS: Mucous, Urine 0 SEEN /hpf (<or=2+)
[2019-09-18 22:39] LABS: Absolute Lymphocyte Count 2.28 X10^3/uL (0.83-4.51); Absolute Neutrophil Count 3.9 X10^3/uL (2.0-7.7); Basophil# 0.05 X10^3/uL; Basophil% 0.7 % (0-1); Eosinophil# 0.28 X10^3/uL; Eosinophils% 4.1 % (0-5); Hematocrit 39.4 % (37-47); Hemoglobin 13.7 g/dL (12.0-15.0); Lymphocyte # 2.28 X10^3/ul (4.0); Lymphocyte % 33.1 % (19-41); Mean Corp Hgb Conc 34.8 g/dL (32-36); Mean Corpuscular Hgb 30.4 pg (27.0-32.0); Mean Corpuscular Volume 87.4 fL (81-99); Mean Platelet Vol. 9.6 fl (6.2-12.0); Monocyte# 0.34 X10^3/uL; Monocyte% 4.9 % (0-10); NRBC Flagged by Analyzer 0 % (0-5); Neutrophil # 3.91 X10^3/uL (2.7-7.7); Neutrophil % 56.8 % (47-70); Platelet Count 247 K/mm3 (150-450); RBC Distribution Width CV 11.9 % (11.6-14.6); RBC Distribution Width SD 38.4 fl (35.1-43.9); Red Blood Count 4.51 M/mm3 (4.2-5.4); White Blood Count 6.9 K/mm3 (4.4-11.0)
[2019-09-18 22:40] LABS: Color, Urine Yellow (Yellow); Glucose, Dipstick Normal (Normal); Ketone-Dipstick Negative (Negative); Leukocyte Esterase-Dipstick Negative /ul (Negative); Nitrite-Dipstick Negative (Negative); Occult Blood-Urine Negative /ul (Negative); Protein-Dipstick Negative (Negative); Urine Bilirubin Dipstick Negative (Negative); Urine Clarity Clear (Clear); Urine Urobilinogen Normal (Normal)
[2019-09-18 22:45] LABS: Bacteria 2+ /hpf (None Seen); Red Blood Cells-Urine 0 SEEN /hpf (0-5); Squamous Epithelial Cells - UA 5-10 SEEN /hpf (5-10); White Blood Cells 0-5 SEEN /hpf (0-5)
[2019-09-18 22:52] LABS: Anion Gap 6 (5-15); BUN 11 mg/dL (7-18); BUN/Creat Ratio 13.3 RATIO (10-20); Calcium,Total 8.6 mg/dL (8.5-10.1); Chloride 112 mmol/L (98-107); Creatinine, Serum 0.83 mg/dL (0.55-1.02); EST Glomerular Filtration Rate 84 mL/min (>60); Est Glom Filt Rate - Afr Amer 102 mL/min (>60); Estimated Creatinine Clearance 99.81 ml/min; Glucose 138 mg/dL (74-106); Lipase 194 U/L (73-393); Potassium 3.4 mmol/L (3.5-5.1); Sodium Level 142 mmol/L (136-145)
[2019-09-18] MEDS: Dicyclomine 20 MG/2 ML Vial IM (23:56)
[2019-09-18] MEDS: Mag Hydrox/Al Hydrox/Simeth 30 ML UDC PO (23:56)
[2019-09-19 00:32] VITALS: PULSE 88; RESP 16; O2SAT 98
== END 2019-09-19 00:32 | disposition home or self-care (01) ==
PROVIDERS: Emergency Provider Emergency Medicine; Family Provider Family Medicine; PCP Family Medicine
DX: K29.00 Acute gastritis without bleeding (principal); K44.9 Diaphragmatic hernia without obstruction or gangrene; R10.12 Left upper quadrant pain; F17.200 Nicotine dependence, unspecified, uncomplicated; E66.9 Obesity, unspecified; Z68.33 Body mass index [BMI] 33.0-33.9, adult
CPT/HCPCS: 71045; 74177; 80048; 81001; 83690; 85025; 96361; 96372; 96374; 96375; 99283; J7030; Q9967; J2405

== ENCOUNTER 2019-10-02 21:51 | Emergency (ER) | payer MEDICAID, SELFPAY ==
[2019-10-02 21:51] VITALS: BP 113/67; PULSE 77; RESP 16; TEMP 36.7; O2SAT 99; BMI 33.2
--- NOTE | 2019-10-02 22:20 | RAD_ITS ---
STUDY: X-RAY - LEFT KNEE REASON FOR EXAM: Female, 34 year old. Pain after fall. TECHNIQUE: 4 view(s) of the knee. COMPARISON: None. FINDINGS: Normal visualized distal femur. Normal visualized proximal tibia and fibula. Normal proximal tibiofibular articulation. There is no acute fracture, dislocation or destructive osseous pathology. Normal medial femorotibial compartment. Normal lateral femorotibial compartment. Normal patellofemoral articulation. There is no demonstrated joint effusion. The soft tissue structures are unremarkable. RAD/Knee 4 or More Views IMPRESSION: Normal x-ray examination of the knee. Electronically Signed: Albert Lowe DO at 0:46 EST Tel [phone], Service support ,
--- NOTE | 2019-10-02 22:26 | ED.DCSUM_ITS ---
- ER Visit Summary Date of Service: 10/02/19 Chief Complaint: [Left knee injury and pain] History of Present Illness: The patient is a 34 F [presents the emergency department complaint of injury to her left knee that occurred yesterday. Patient states that she accidentally ran into a desk at her mother's house with her left knee. Today patient had another injury where she slipped on the ice and her knee twisted. Patient having pain with ambulation. Patient feels like something is catching in her knee. Patient did not actually fall today. Patient does have history of cholecystectomy, hysterectomy, and prior left knee surgery.] Physical Examination: [HEENT-PERRLA, EOMI. Cranial nerves II through XII grossly intact. TMs clear. Mucous membranes moist. No adenopathy. Cardiovascular-regular rate and rhythm without murmur or ectopy Lungs-clear to auscultation, chest wall stable without crepitus or subcu emphysema Abdomen-normoactive bowel sounds, soft, nontender, no rebound or rigidity, no peritoneal signs. Extremities-intact ?4, normal range of motion, normal pulses, atraumatic. Left knee-patient has diffuse tenderness over the medial joint line. There is no effusion noted. There is no ecchymosis or bruising noted. He has pain with flexion extension of the knee. Ligamentous exam difficult as patient does not tolerate very well. She is neurovascular intact distally.] Test Results: [X-Rays of the left knee obtained] read by myself as no acute fractures. Emergency Department Course and Treatment: [Patient was given crutches and a knee immobilizer] Treatment Plan: [Follow-up with orthopedics on-call and 3 to 5 days] Disposition: [Discharged home in stable condition] Impression: [Left knee sprain-possible internal derangement] This note was generated with [employer] dictation software. It may contain incorrect words, spelling, and punctuation that were not noted in review of the chart prior to signing ED Disposition - Plan for ED Patient: Referrals: Valentino Castellanos MD [Primary Care Provider] -
--- NOTE | 2019-10-02 22:36 | ED.DEP ---
ED Disposition - Plan for ED Patient: Instructions: KNEE PAIN, Meniscus Injury (Possible) Prescriptions: Naproxen [Naprosyn] 500 mg PO BID PRN #20 tab Prescription Printed Hydrocodone Bitart/Apap 5-325 [[place] 5MG-325MG] 1 tab PO Q4H PRN PRN 2 Days #10 tab PRN Reason: Pain Prescription Printed Referrals: Valentino Castellanos MD [Primary Care Provider] - 3-5 Days Scott Reddy DO [STAFF PHYSICIAN] - 3-5 Days
[2019-10-02 23:05] VITALS: RESP 16
== END 2019-10-02 23:06 | disposition home or self-care (01) ==
LOC: ED 22:32
PROVIDERS: Emergency Provider Emergency Medicine; PCP Family Medicine
DX: S83.92XA Sprain of unspecified site of left knee, initial encounter (principal); W00.0XXA Fall on same level due to ice and snow, initial encounter; X50.1XXA Overexertion from prolonged static or awkward postures, initial encounter; Y93.9 Activity, unspecified; Z72.0 Tobacco use
CPT/HCPCS: 73564; 99284

== ENCOUNTER 2019-11-30 16:04 | Emergency (ER) | payer MEDICAID, SELFPAY ==
[2019-11-30 16:05] VITALS: BP 163/83; PULSE 120; RESP 16; TEMP 36.8; O2SAT 100; BMI 33.0
--- NOTE | 2019-11-30 16:51 | ED.DEP ---
ED Disposition - Plan for ED Patient: Instructions: Reducing Knee Pain and Swelling Prescriptions: Oxycodone HCl/Acetaminophen [Percocet 5/325] 1 tablet PO Q6H PRN PRN 3 Days #12 tablet PRN Reason: Pain Referrals: Valentino Castellanos MD [Primary Care Provider] - Additional Instructions: Follow up with Dr Guillermo.
--- NOTE | 2019-11-30 16:58 | ED.DCSUM_ITS ---
- ER Visit Summary Date of Service: 11/30/19 Chief Complaint: Left knee pain and swelling History of Present Illness: The patient is a 34 F presenting with left knee pain and swelling. Patient had arthroscopic knee surgery on November 17 at [facility] with Dr. Bahman Saavedra. She started physical therapy on November 23. She was seen by the physician grants and contracts assistant on November 25. She states on November 25 her knee began swelling. She tried to get in touch with her orthopedic surgeon on and Sunday and was unable to get through. She is out of her pain medication is now taking ibuprofen. She denies any recent injuries. She denies fever or chills. Denies chest pain or shortness of breath. Denies other complaints. Physical Examination: Vitals are stable. Patient is afebrile. Alert no acute distress. HEENT exam is unremarkable. Neck is supple. Lungs are clear and equal bilaterally. Heart is regular rate and rhythm. Extremities left anterior knee swelling. There is no erythema or warmth. No calf tenderness. Normal distal pulses. She is able to range her knee Skin is warm and dry. No focal neurologic deficit. Remainder of exam is unremarkable. Emergency Department Course and Treatment: Discussed with Dr. Hayes on-call for Dr. Saavedra. Patient is advised to continue ice and elevation. She is given a short course of Percocet. She is given an order for venous Doppler. He will have their office call her tomorrow morning for follow-up. She is advised to return to the ED for new or worsening complaints. She is agreeable with this plan. Disposition: Discharged home Impression: Post operative knee swelling This note was generated with [employer] dictation software. It may contain incorrect words, spelling, and punctuation that were not noted in review of the chart prior to signing ED Disposition - Plan for ED Patient: Instructions: Reducing Knee Pain and Swelling Prescriptions: Oxycodone HCl/Acetaminophen [Percocet 5/325] 1 tab PO Q6H PRN PRN 3 Days #12 tab PRN Reason: Pain Prescription Printed Referrals: Valentino Castellanos MD [Primary Care Provider] - Additional Instructions: Follow up with Dr Guillermo.
== END 2019-11-30 17:19 | disposition home or self-care (01) ==
LOC: ED 16:44
PROVIDERS: Emergency Provider Emergency Medicine; PCP Family Medicine
DX: M25.462 Effusion, left knee (principal); M25.562 Pain in left knee; G89.18 Other acute postprocedural pain
CPT/HCPCS: 99282

== ENCOUNTER → 2019-12-01 13:38 | Outpatient (CLI) | payer MEDICAID, SELFPAY ==
[2019-11-30 16:05] VITALS: BMI 33.0
--- NOTE | 2019-12-01 13:41 | VDLE_ITS ---
Reason For Study: Swelling RIGHT LEFT CFV is compressible, spontaneous, phasic, GSV is normal. competent and demonstrates normal CFV is compressible, spontaneous, phasic, augmentation. competent, and demonstrates normal Procedure augmentation. Exam performed in department. FV is compressible, spontaneous, phasic, A preliminary report was called and/or faxed competent and demonstrates normal to ED. augmentation. POP V is compressible, spontaneous, phasic, competent and demonstrates normal augmentation. T/P Trunk is compressible. PTV is compressible. LT PerV is compressible. Interpretation Summary Deep veins of the left lower extremity are patent and compressible segmentally. There is no evidence of left lower extremity deep vein thrombosis. Valvular competence appears intact within the proximal deep venous system on the left . The left great saphenous vein appears patent and compressible segmentally. Ordering Physician: Jennifer Parmar Referring Physician: Dio Castellanos Performed By: Antoinette Owens RDCS, RVT
== END ==
PROVIDERS: PCP Family Medicine; Referring Provider Emergency Medicine; Visit Provider Emergency Medicine
DX: M79.89 Other specified soft tissue disorders (principal)
CPT/HCPCS: 93971

== ENCOUNTER 2020-03-24 15:14 | Emergency (ER) | payer MEDICAID, SELFPAY ==
[2020-03-24 15:15] VITALS: BP 145/120; PULSE 87; PULSE 91; RESP 22; TEMP 36.8; O2SAT 96; BMI 34.0
--- NOTE | 2020-03-24 15:49 | ED.DCSUM_ITS ---
- ER Visit Summary Date of Service: 03/24/20 Chief Complaint: Right shoulder pain History of Present Illness: The patient is a [address] Hamilton. She is right-hand dominant. She reports that she has right shoulder pain that began 3 days ago. Is a sharp, stabbing pain that is gradually gotten worse. Is 10 of 10 at worst 9-10 currently. Is worsened by movement. She taken Tylenol without relief. She denies any paresthesias or weakness. States that today when she was moving her shoulder popped and the pain got much worse. She denies any recent trauma. No fall, MVA, or change in activity. Reports that she had similar symptoms 3 years ago with trapezius spasm. Physical Examination: Vitals: Stable. Afebrile. General: Well-nourished and well-developed. Head: Normocephalic atraumatic. Neck: Supple, no lymphadenopathy. No JVD. No vertebral tenderness. She does h ave moderate tensional patient right trapezius muscle and there is spasm present. Cardiovascular: Regular rate and rhythm. No murmurs. Respiratory: No respiratory distress. Clear to auscultation bilaterally. Abdominal: Soft, nontender, nondistended, normal bowel sounds. No guarding, rebound, or peritoneal signs. Back: Nontender. Extremities: Mild tenderness palpation over the right deltoid. There is no overlying erythema or warmth to suggest a septic joint. She has no pain with short arc movements. She has a 2+ radial pulse. She is neuro vas intact distally. No edema. Skin: Normal color, no rash. Neurologic: Alert and oriented ?3. Cranial nerves II through XII are intact. Normal strength and sensation. Psych: Normal affect. Emergency Department Course and Treatment: An [facility] report was obtained which shows she has had 4 prescriptions for opiates in the past year. She was given a dose of morphine IM. Had discussion with her about possibility of x-rays. States that she does not want to do x-rays that she has had no trauma. Treatment Plan: Patient will be discharged with [place] and naproxen. Instructed to use warm compresses to the area. Follow-up with her primary care physician in 3 to 5 days if not improving. Return to the emergency department for any worsening symptoms. Disposition: To home in improved and stable condition. Impression: 1. Right trapezius spasm. This note was generated with [employer] dictation software. It may contain incorrect words, spelling, and punctuation that were not noted in review of the chart prior to signing ED Disposition - Plan for ED Patient: Disposition: Home or Assisted Living Instructions: ED SPASM Muscle Prescriptions: Naproxen [Naprosyn] 500 mg PO BID #14 tab Prescription Printed Hydrocodone Bitart/Apap 5-325 [[place] 5MG-325MG] 1 tab PO Q4H PRN PRN 2 Days #10 tab PRN Reason: Pain Prescription Printed Referrals: Valentino Castellanos MD [Primary Care Provider] - 3-5 Days if not improving
[2020-03-24] MEDS: morphine 8 MG/ML Syringe IM (15:55)
== END 2020-03-24 16:20 | disposition home or self-care (01) ==
LOC: ED 15:48
PROVIDERS: Emergency Provider Emergency Medicine; PCP Family Medicine
DX: M62.838 Other muscle spasm (principal); Z72.0 Tobacco use
CPT/HCPCS: 96372; 99282

== ENCOUNTER 2020-04-06 09:51 | Emergency (ER) | payer MEDICAID, SELFPAY ==
[2020-04-06 09:51] VITALS: BP 143/101; PULSE 78; RESP 15; TEMP 36.4; O2SAT 96; BMI 31.0
--- NOTE | 2020-04-06 10:17 | ED.DCSUM_ITS ---
History of Present Illness Chief Complaint: Ear Problem Informant: Patient Narrative: Patient is a 34-year-old previously healthy female who presents to the emergency department for left ear pain. She states that 3 or 4 days ago she had a Q-tip in her ear. She the Q-tip was in her ear and she accidentally hit it further in. She developed a sharp pain in her ear. The pain has been waxing and waning since then. She is been taking ibuprofen and Tylenol which has not been giving much relief. Does feel like the hearing is slightly decreased on the left side. She does have some ringing in her right ear. She is been having some mild headaches with this. Denies any sore throat. No fevers or chills. She feels like there might of been some water in the ear but no obvious discharge coming out of the ear. No issues with her ears before in the past. She otherwise does not know any aggravating or relieving factors. The pain does get up to a 9 out of 10. Currently it has subsided. Past Medical History - Allergies and Home Meds Allergies/Adverse Reactions: Allergies fentanyl Allergy (Verified 04/06/20 09:53) Rash ketorolac tromethamine [From Toradol] Allergy (Verified 04/06/20 09:53) Rash COLD MEDICATIONS Adverse Reaction (Uncoded 04/06/20 09:53) Unknown PLASTIC TAPE Adverse Reaction (Uncoded 04/06/20 09:53) Unknown Primary Care Physician: Valentino Castellanos MD [Primary Care Provider] - Sebas Bangura MD [STAFF PHYSICIAN] - As soon as possible Prior records reviewed: Yes Past Medical History: None Surgical History: cholecystectomy, hysterectomy, - - gastric diverticulum resection Smoking Status: Current every day smoker Alcohol: None Drugs: None Review of Systems All systems negative except as indicated General: Denies: Chills, Fever, Sweats Eyes: Denies: Visual changes - bilaterally, Diplopia ENT: Reports: Left ear pain. Denies: Rhinorrhea, Sore throat Cardiovascular: Denies: Chest pain, Palpitations Respiratory: Denies: Dyspnea, Cough Gastrointestinal: Denies: Abdominal pain, Nausea, Vomiting Genitourinary: Denies: Dysuria, Hematuria, Frequency Musculoskeletal: Denies: Extremity Pain Skin: Denies: Rash, Wounds Neurological: Reports: Headache. Denies: Weakness, Numbness Physical Exam Vital Signs/Narrative: Vital Signs Temp Pulse Resp BP Pulse Ox 04/06/20 09:51 97.6 F L 78 15 143/101 H 96 Inital Vital Signs reviewed: Yes General: Well nourished, Well developed Head: Normocephalic, Atraumatic Eyes: Perrl, EOMI ENT: Moist mucous membranes, No rhinorrhea, - - No obvious tympanic perforation on the left. There is some dried blood on the tympanic membrane. No swelling of the external ear canal. No bulging of the tympanic membrane. No discharge present. No evidence of mastoiditis bilaterally. Right tympanic membrane appe ars normal. Does not have any issues hearing me speak at bedside.. Negative for: Nasal congestion Respiratory: No distress, CTA bilaterally Abdomen: Nondistended Extremities: No edema Skin: No rash Neurological: Alert, Oriented x3 Psychological: Normal affect, Normal Mood Diagnostic/Tx/Re-eval - Medical Decision Making Patient presents the emerge department for left ear pain after having a tr aumatic Q-tip placement. No obvious perforation or infection seen on physical exam. Will recommend symptomatic treatment. I did offer to do a lidocaine soaked gauze inserted into the ear but she is refusing at this time. Because she is stating that she feels like her hearing is slightly decreased on the left side will refer her to ear nose and throat doctor. Warning signs and symptoms for which to return to the emerge department including any worsening symptoms or developing any evidence of infection are reviewed with her. She understands and is agreeable this plan. Will discharge home in stable condition. ED Disposition - Plan for ED Patient: Disposition: Home or Assisted Living Diagnosis: Ear pain, left Instructions: Eardrum Rupture (Perforation) Referrals: Valentino Castellanos MD [Primary Care Provider] - Sebas Bangura MD [STAFF PHYSICIAN] - As soon as possible
== END 2020-04-06 10:43 | disposition home or self-care (01) ==
LOC: ED 10:27
PROVIDERS: Emergency Provider Emergency Medicine; PCP Family Medicine
DX: H92.02 Otalgia, left ear (principal); R51 Headache; F17.200 Nicotine dependence, unspecified, uncomplicated
CPT/HCPCS: 99282

== ENCOUNTER 2020-04-16 08:08 | Emergency (ER) | payer MEDICAID, SELFPAY ==
[2020-04-16 08:09] VITALS: BP 167/102; PULSE 90; RESP 18; TEMP 36.4; O2SAT 98; BMI 31.0
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
[2020-04-16] MEDS: HYDROcodone Bitartrate/Apap 5/325 Tablet PO (08:31)
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
== END 2020-04-16 09:19 | disposition home or self-care (01) ==
PROVIDERS: Emergency Provider Student in an Organized Health Care Education/Training Program; PCP Family Medicine
DX: S93.401A Sprain of unspecified ligament of right ankle, initial encounter (principal); X50.1XXA Overexertion from prolonged static or awkward postures, initial encounter; Y93.16 Activity, rowing, canoeing, kayaking, rafting and tubing; Y92.9 Unspecified place or not applicable; Y99.8 Other external cause status; F17.200 Nicotine dependence, unspecified, uncomplicated
CPT/HCPCS: 73610; 99284

== ENCOUNTER 2020-07-29 13:30 | Emergency (ER) | payer MEDICAID, SELFPAY ==
[2020-07-29 13:31] VITALS: BP 131/79; PULSE 91; RESP 16; TEMP 36.7; O2SAT 96; BMI 35.0
--- NOTE | 2020-07-29 14:17 | EKG12_ITS ---
Test Reason : Blood Pressure : / mmHG Vent. Rate : 081 BPM Atrial Rate : 081 BPM P-R Int : 156 ms QRS Dur : 098 ms QT Int : 406 ms P-R-T Axes : 058 019 025 degrees QTc Int : 471 ms Normal sinus rhythm Normal ECG Confirmed by RADHA ZHONG, IRIS ([id number]), scientific publications editor JEWEL LUNDBERG ([id number]) on 07/30/2020 10:53:28 AM Referred By: MR Confirmed By:IRIS GARCIA MD
--- NOTE | 2020-07-29 14:21 | ED.VIS.HA ---
History of Present Illness Chief Complaint: Headache Narrative: Patient presenting for evaluation secondary to headache neck pain and syncope. Patient reports that about 2 AM she woke up with a aching type neck pain on the right posterior portion of her neck. Not associated with any sort of injuries, lifting twisting pushing or pulling. 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 Patient states progressively throughout the course of the day she has had worsening of this neck pain that then progressed up into a generalized headache. Headache was bad enough that it was causing her to be photophobic and the to feel lightheaded as if she was going to pass out. Patient denies that there is any visual changes numbness or weakness. There is nausea but no vomiting. Patient states that she felt so lightheaded at one point that she did actually pass out. She denies any preceding chest pain palpitations or shortness of breath. Patient does have a family history of brain aneurysm in a grandparent. No personal history of connective tissue disease or brain aneurysm. She did take prescription strength ibuprofen at home with no relief. She reports that she does have a history of migraines, but this does not seem consistent with her typical headaches. Past Medical History - Allergies and Home Meds Allergies/Adverse Reactions: Allergies fentanyl Allergy (Verified 07/29/20 13:36) Rash ketorolac tromethamine [From Toradol] Allergy (Verified 07/29/20 13:36) Rash COLD MEDICATIONS Adverse Reaction (Uncoded 07/29/20 13:36) Unknown PLASTIC TAPE Adverse Reaction (Uncoded 07/29/20 13:36) Unknown Primary Care Physician: Valentino Castellanos MD [Primary Care Provider] - Prior records reviewed: Yes Past Medical History: - - Migraine headaches Surgical History: cholecystectomy, hysterectomy, - - gastric diverticulum resection Lives: With Family Smoking Status: Current every day smoker Alcohol: None Drugs: None Review of Systems All systems negative except as indicated General: Denies: Chills, Fever, Sweats Eyes: Denies: Visual changes - bilaterally, Diplopia ENT: Denies: Rhinorrhea, Sore throat Cardiovascular: Denies: Chest pain, Palpitations Respiratory: Denies: Dyspnea, Cough, Dyspnea on exertion Gastrointestinal: Reports: Nausea Genitourinary: Denies: Dysuria, Hematuria, Frequency Musculoskeletal: Reports: Neck pain Skin: Denies: Rash, Wounds Neurological: Reports: Headache Physical Exam Vital Signs/Narrative: Vital Signs Temp Pulse Resp BP Pulse Ox 07/29/20 13:31 98.0 F 91 16 131/79 H 96 Inital Vital Signs reviewed: Yes General: Well nourished, Well developed, Obese Head: NC, AT. Negative for: Temporary Artery Tenderness Eyes: Perrl, EOMI, - - Funduscopy limited secondary to miosis ENT: Moist mucous membranes, No rhinorrhea Neck: Supple, No Lymphadenopathy, No JVD, Nontender, No Meningismus, Paraspinal Tenderness - Right posterior paraspinal neck with tenderness to palpation Cardiovascular: Regular rate, Regular rhythm, No murmurs Respiratory: No distress, CTA bilaterally, Chest nontender Abdomen: Soft, Nontender, Nondistended, Normal bowel sounds Back: Nontender, Normal Inspection Extremities: Nontender, No edema Skin: Normal color, No rash Neuro: Alert, Oriented x3, Cranial nerves II-XII grossly intact, Normal Strength, Normal Sensation, Normal DTR, Normal Gait Psychological: Normal affect Diagnostic/Tx/Re-eval Clinical Impression(s) from Imaging Studies Head/Neck CTA 07/29/20 16:45 IMPRESSION: Normal CTA Head and neck with contrast. Electronically Signed: Keanu Rodriguez MD at 17:22 EST Tel , Service support , Laboratory Data 07/29/20 07/29/20 07/29/20 14:35 14:35 14:35 WBC 8.5 RBC 4.70 Hgb 14.4 Hct 41.8 MCV 88.9 MCH 30.6 MCHC 34.4 RDW Std Deviation 40.2 RDW Coeff of Anushka 12.3 Plt Count 278 MPV 9.8 Immature Gran % (Auto) 0.400 Neut % (Auto) 65.2 Lymph % (Auto) 24.5 Runnels % (Auto) 5.1 Eos % (Auto) 4.2 Baso % (Auto) 0.6 Absolute Neuts (auto) 5.5 Absolute Lymphs (auto) 2.08 Nucleated RBC % 0 Sodium Potassium Chloride Carbon Dioxide Anion Gap BUN Creatinine Estim Creat Clear Calc Est GFR (MDRD) Af Amer Est GFR (MDRD) Non-Af BUN/Creatinine Ratio Glucose Calcium Troponin I < 0.015 Serum , Qual NEGATIVE 07/29/20 14:35 WBC RBC Hgb Hct MCV MCH MCHC RDW Std Deviation RDW Coeff of Anushka Plt Count MPV Immature Gran % (Auto) Neut % (Auto) Lymph % (Auto) Runnels % (Auto) Eos % (Auto) Baso % (Auto) Absolute Neuts (auto) Absolute Lymphs (auto) Nucleated RBC % Sodium 141 Potassium 3.2 L Chloride 107 Carbon Dioxide 29.0 Anion Gap 5 BUN 7 Creatinine 0.81 Estim Creat Clear Calc 101.31 Est GFR (MDRD) Af Amer 103 Est GFR (MDRD) Non-Af 85 BUN/Creatinine Ratio 8.6 L Glucose 93 Calcium 9.6 Troponin I Serum , Qual - EKG Initial EKG Interpretation: - - Sinus rhythm of [address] segments normal T waves normal NC and QTc intervals no evidence of acute ischemia or arrhythmia. No evidence of right ventricular strain. - Medical Decision Making Patient presented secondary to neck pain headache in the setting of syncope. An EKG was performed which was found to be unremarkable. CBC chemistry troponin found to be unremarkable. Due to the patient's family history of aneurysm with neck pain headache and syncope I did perform CT angiograms of the neck and brain which were found to be negative. Patient's pain really actually started gradually in her neck and is associated with a feeling of muscle spasm and then progressed to a feeling of a migraine headache. She was treated initially with Compazine and Benadryl had improvement of the headache, and then was treated with a lidocaine patch and Valium and had improvement of her neck pain. 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 She will be sent home with a muscle relaxer as well as lidocaine patches. She was instructed to use her previously prescribed headache medications should she redevelop a migraine. Patient was discharged in improved condition. ED Disposition - Plan for ED Patient: Disposition: Home or Assisted Living Diagnosis: Migraine headache, Torticollis Instructions: ED, Migraine (Classical) Prescriptions: cycloBENZAPRine HCl [Flexeril] 10 mg PO TID PRN #20 tab PRN Reason: Muscle Spasm Prescription Printed Lidocaine [Lidoderm] 1 ea TP DAILY #10 adh..patch Prescription Printed Referrals: Valentino Castellanos MD [Primary Care Provider] - As Needed
[2020-07-29] MEDS: DiphenhydrAMINE 50 MG/ML Syringe 25 MG IV (14:42)
[2020-07-29] MEDS: 0.9% Normal Saline 1,000 ML 999 ML IV (14:42)
[2020-07-29] MEDS: proCHLORPERazine 10 MG/2 ML Vial IV (14:42)
[2020-07-29 15:07] LABS: Absolute Lymphocyte Count 2.08 X10^3/uL (0.83-4.51); Absolute Neutrophil Count 5.5 X10^3/uL (2.0-7.7); Basophil# 0.05 X10^3/uL; Basophil% 0.6 % (0-1); Eosinophil# 0.36 X10^3/uL; Eosinophils% 4.2 % (0-5); Hematocrit 41.8 % (37-47); Hemoglobin 14.4 g/dL (12.0-15.0); Lymphocyte # 2.08 X10^3/ul (4.0); Lymphocyte % 24.5 % (19-41); Mean Corp Hgb Conc 34.4 g/dL (32-36); Mean Corpuscular Hgb 30.6 pg (27.0-32.0); Mean Corpuscular Volume 88.9 fL (81-99); Mean Platelet Vol. 9.8 fl (6.2-12.0); Monocyte# 0.43 X10^3/uL; Monocyte% 5.1 % (0-10); NRBC Flagged by Analyzer 0 % (0-5); Neutrophil # 5.53 X10^3/uL (2.7-7.7); Neutrophil % 65.2 % (47-70); Platelet Count 278 K/mm3 (150-450); RBC Distribution Width CV 12.3 % (11.6-14.6); RBC Distribution Width SD 40.2 fl (35.1-43.9); White Blood Count 8.5 K/mm3 (4.4-11.0)
[2020-07-29 15:16] LABS: Anion Gap 5 (5-15); BUN 7 mg/dL (7-18); BUN/Creat Ratio 8.6 RATIO (10-20); Calcium,Total 9.6 mg/dL (8.5-10.1); Chloride 107 mmol/L (98-107); Creatinine, Serum 0.81 mg/dL (0.55-1.02); EST Glomerular Filtration Rate 85 mL/min (>60); Est Glom Filt Rate - Afr Amer 103 mL/min (>60); Estimated Creatinine Clearance 101.31 ml/min; Glucose 93 mg/dL (74-106); Potassium 3.2 mmol/L (3.5-5.1); Sodium Level 141 mmol/L (136-145)
[2020-07-29 16:20] LABS: Internal QC Validated? YES +Cl - CLEAR BKGD; Pregnancy, Serum, hCG Quali. NEGATIVE Negative
--- NOTE | 2020-07-29 16:45 | CT_ITS ---
STUDY: CTA HEAD AND NECK WITH CONTRAST REASON FOR EXAM: Female, 35 years old. NECK PAIN WITH HEADACHE AND SYNCOPE RADIATION DOSAGE (If Supplied By Facility): CTDIvol = ( 27.09 ) mGy, DLP = ( 1586.88 ) mGycm TECHNIQUE: CT angiography was performed with a multi-detector CT scanner. Data acquisition was obtained from the skull base through the vertex following intravenous administration of IV 100mL Isovue-370. MIP images were reconstructed from the axial data set. Post-processing of the angiographic images was performed, with multiplanar reformation and 3D reconstruction. Individualized dose optimization techniques were used for this CT. COMPARISON: No relevant priors. FINDINGS: Normal bilateral petrous carotid arteries. Normal right cavernous carotid artery with a normal supraclinoid bifurcation. Normal left cavernous carotid artery with a normal supraclinoid bifurcation. There is hypoplastic development of the right A1 segment of the anterior cerebral arteries with an atretic but intact artery. Normal left A1 segments of the anterior cerebral artery. Normal intact anterior communicating artery (ACOM). Normal bilateral A2 segments of the anterior cerebral arteries. Normal right M1 and M2 segments of the middle cerebral arteries, with a normal M1 bifurcation. Normal left M1 and M2 segments of the middle cerebral arteries, with a normal M1 bifurcation. Normal right posterior communicating artery (PCOM). Normal left posterior communicating artery (PCOM). Normal bilateral vertebral arteries. Normal basilar artery with a normal basilar bifurcation. The visualized bilateral superior cerebellar (SCA) arteries are normal. Normal bilateral P1, P2 and visualized P3 segments of the posterior cerebral arteries. There is no demonstrated aneurysm of the [place] of [place]. There is no demonstrated abnormality of the visualized brain. AORTIC ARCH: Normal visualized aortic arch. Normal origins of the brachiocephalic, left common carotid, and left subclavian arteries. RIGHT CAROTID ARTERIES: Normal right common carotid artery (CCA). Normal right common carotid bulb. Normal origin of the right internal carotid (ICA) artery without a hemodynamically significant stenosis. Normal visualized cervical portion of the right internal carotid artery. Normal origin of the right external carotid artery (ECA). LEFT CAROTID ARTERIES: Normal left common carotid artery (CCA). Normal left common carotid bulb. Normal origin of the left internal carotid (ICA) artery without a hemodynamically significant stenosis. Normal visualized cervical portion of the left internal carotid artery. Normal origin of the left external carotid artery (ECA). VERTEBRAL ARTERIES: Normal bilateral vertebral arteries. CT/CTA Head AND Neck W/ Contrast IMPRESSION: Normal CTA Head and neck with contrast. Electronically Signed: Keanu Rodriguez MD at 17:22 EST Tel , Service support ,
[2020-07-29] MEDS: Lidocaine 5% Patch 1 PATCH TOPICAL (17:03)
[2020-07-29] MEDS: diazePAM 5 MG Tablet PO (17:03)
[2020-07-29 17:06] VITALS: BP 114/75; PULSE 76; RESP 14; O2SAT 97
== END 2020-07-29 17:37 | disposition home or self-care (01) ==
PROVIDERS: Emergency Provider Emergency Medicine; PCP Family Medicine
DX: G43.909 Migraine, unspecified, not intractable, without status migrainosus (principal); M43.6 Torticollis; E66.9 Obesity, unspecified; Z68.35 Body mass index [BMI] 35.0-35.9, adult; F17.200 Nicotine dependence, unspecified, uncomplicated; Z82.49 Family history of ischemic heart disease and other diseases of the circulatory system
CPT/HCPCS: 70496; 70498; 80048; 84484; 84703; 85025; 93005; 96361; 96374; 96375; 99285; J7030; Q9967; A4216

== ENCOUNTER 2020-11-23 21:09 | Emergency (ER) | payer MEDICAID, SELFPAY ==
[2020-11-23 21:10] VITALS: BP 149/127; PULSE 109; RESP 18; TEMP 35.6; O2SAT 96; BMI 31.0
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
--- NOTE | 2020-11-23 21:44 | RAD_ITS ---
STUDY: X-RAY - LEFT SHOULDER REASON FOR EXAM: Female, 35 years old. Shoulder pain TECHNIQUE: 4 view(s) of the shoulder. COMPARISON: None. FINDINGS: Normal glenohumeral articulation. Normal acromioclavicular joint. Normal acromion. Normal humeral head and visualized proximal humerus. The soft tissue structures are unremarkable. Normal visualized pulmonary apex. RAD/Shoulder min 2 Views IMPRESSION: Normal x-ray examination of the shoulder. Electronically Signed: Abel Forrest DO at 22:16 EDT Tel [phone], Service support ,
[2020-11-23] MEDS: Naproxen 500 MG Tablet PO (21:45)
[2020-11-23] MEDS: cycloBENZAPRine HCl 10 MG Tablet PO (21:45)
== END 2020-11-23 22:30 | disposition home or self-care (01) ==
PROVIDERS: Emergency Provider Emergency Medicine; PCP Family Medicine
DX: M25.512 Pain in left shoulder (principal); F17.200 Nicotine dependence, unspecified, uncomplicated; Z90.49 Acquired absence of other specified parts of digestive tract; Z90.710 Acquired absence of both cervix and uterus
CPT/HCPCS: 73030; 99283

== ENCOUNTER 2020-12-28 22:10 | Emergency (ER) | payer MEDICAID, SELFPAY ==
[2020-12-28 22:10] VITALS: BP 152/85; PULSE 99; RESP 16; TEMP 35.8; O2SAT 95; BMI 31.0
--- NOTE | 2020-12-28 22:27 | ED.DCSUM_ITS ---
History of Present Illness Chief Complaint: Back Detail of Chief Complaint: Bilateral posterior neck pain Informant: Patient Onset: Days Context: Sudden Onset Timing: Continuous Quality: Pain Location: Posterior neck/upper back Current Severity: Moderate Maximum Severity: Severe Worsened by: Any type of movement and hiccups Relieved by: Nothing Associated Symptoms: No radicular pain or neurologic symptoms Narrative: Patient is a 35-year-old woman with history of neck pain. She states she has lumps that Dr. Hamilton is looking into. She does braid her hair. Patient denies fever, chills night sweats. Patient denies radicular pain. Patient denies paresthesia, anesthesia motors. Patient reports hiccups for 1 year that been intermittent. Etiology has not been determined. She is status post cholecystectomy. She has no GI symptoms. She has no respiratory symptoms. Prior similar symptoms: Yes Recent Illness/Hospitalization: Yes - Past Medical History (1) Acute upper back pain Status: Acute (2) Gastroenteritis Status: Acute (3) Hiatal hernia Status: Chronic (4) PCOS (polycystic ovarian syndrome) Status: Chronic Past Medical History - Allergies and Home Meds Allergies/Adverse Reactions: Allergies fentanyl Allergy (Verified 12/28/20 22:12) Rash ketorolac tromethamine [From Toradol] Allergy (Verified 12/28/20 22:12) Rash COLD MEDICATIONS Adverse Reaction (Uncoded 12/28/20 22:12) Unknown PLASTIC TAPE Adverse Reaction (Uncoded 12/28/20 22:12) Unknown Primary Care Physician: Valentino Castellanos MD [Primary Care Provider] - Prior records reviewed: Yes Surgical History: cholecystectomy, hysterectomy, - - gastric diverticulum resection Lives: With Family Smoking Status: Current every day smoker Alcohol: None Drugs: None Review of Systems General: Denies: Chills, Fever, Malaise, Sweats Eyes: Denies: Visual changes - bilaterally, Blurred Vision - bilaterally ENT: Denies: Rhinorrhea, Sore throat Cardiovascular: Denies: Chest pain, Palpitations Respiratory: Denies: Dyspnea, Cough, Dyspnea on exertion Gastrointestinal: Reports: Nausea - To pain per patient. Denies: Abdominal pain, Vomiting, Diarrhea Musculoskeletal: Reports: Neck pain. Denies: Myalgias, Arthralgias, Back pain, Swelling, Extremity Pain Skin: Denies: Rash Neurological: Denies: Weakness, Parasthesia, Numbness Hematologic: Denies: Easy bruising, Easy bleeding Physical Exam Vital Signs/Narrative: Vital Signs Temp Pulse Resp BP Pulse Ox 12/28/20 22:10 96.5 F L 99 16 152/85 H 95 Inital Vital Signs reviewed: Yes General: Well nourished, Well developed, Obese, No Acute Distress Head: Normocephalic, Atraumatic Eyes: Perrl, EOMI. Negative for: Pale conjunctiva, Scleral icterus ENT: Moist mucous membranes, No rhinorrhea, TM's clear Neck: No JVD. Negative for: Supple, Nontender, No lymphadenopathy - Posterior lymphadenopathy which may be due to bradycardia of her hair. Cardiovascular: Regular rate, Regular rhythm, No murmurs Respiratory: No distress, CTA bilaterally, Chest nontender Abdomen: Soft, Nontender, Nondistended, Normal bowel sounds Extremities: Nontender, No edema, - - Axillary, median, radial and ulnar function intact. Skin: Normal color, No rash Neurological: Alert, Oriented x3, Cranial nerves II-XII grossly intact, Normal Strength, Normal Sensation Psychological: Depressed Diagnostic/Tx/Re-eval - Medical Decision Making IV was established and she was medicated with Toradol, morphine and Zofran to control the nausea. Patient required additional dose of Zofran. Toradol was canceled since she has allergy. She is allergic to NSAIDs. Plan is prescription for opiate analgesia and Valium for muscle relaxant. ED Disposition - Plan for ED Patient: Disposition: Home or Assisted Living Diagnosis: Bilateral posterior neck pain, Neck muscle spasm Instructions: ED Neck Pain, ED Neck Spasm, No Trauma Prescriptions: Hydrocodone Bitart/Apap 5-325 [[place] 5MG-325MG] 1 tablet PO Q6H PRN PRN 3 Days #10 tab PRN Reason: Pain Prescription Printed Diazepam [Valium] 5 mg PO Q8 PRN #10 tablet PRN Reason: Muscle Spasm Prescription Printed Referrals: Valentino Castellanos MD [Primary Care Provider] - 3-5 Days if not improving
[2020-12-28] MEDS: Ondansetron 4 MG/2 ML Vial IV (22:34)
[2020-12-28] MEDS: Morphine 4 MG/ML Syringe IV ×2 (22:36→23:16)
== END 2020-12-29 00:24 | disposition home or self-care (01) ==
PROVIDERS: Emergency Provider Emergency Medicine; PCP Family Medicine
DX: M54.2 Cervicalgia (principal); M62.838 Other muscle spasm; R11.0 Nausea; E28.2 Polycystic ovarian syndrome; E66.9 Obesity, unspecified; Z68.31 Body mass index [BMI] 31.0-31.9, adult; Z87.19 Personal history of other diseases of the digestive system; F17.200 Nicotine dependence, unspecified, uncomplicated
CPT/HCPCS: 96374; 96375; 96376; 99283; A4216; J2405

== ENCOUNTER 2021-01-07 18:16 | Emergency (ER) | payer MEDICAID, SELFPAY ==
[2021-01-07 18:17] VITALS: BP 129/101; PULSE 98; RESP 18; TEMP 36.1; O2SAT 95; BMI 31.0
[2021-01-07 18:43] VITALS: BP 123/95; RESP 18; O2SAT 97
--- NOTE | 2021-01-07 18:51 | EDS_ITS ---
HPI History of Present Illness Chief Complaint: Chest Other Informant: patient Narrative Narrative: 35-year-old female presents with left lower chest pain. She states that it woke her up around 5:00 this morning. It is worse with coughing, breathing, belching. She states it is not worse with movements but though she moves very slowly when sitting up. She denies any fevers. She does not know why she is belching more than normal but states she has been having increasing indigestion. She took a diazepam and it did not help her. No DVT PE risk factors. [facility] Medical History (Updated 01/07/21 @ 20:[address] Héctor Byrnes DO) Anxiety and depression Asthma Fatigue Gallstones Gestational diabetes GI problem H/O gestational diabetes mellitus, not currently IBS (irritable bowel syndrome) Knee pain Severe headache Home Medications cyclobenzaprine 10 mg PO TID PRN #15 tablet 01/07/21 [Rx Last Taken Unknown] ibuprofen 600 mg PO Q8H PRN PRN #20 tablet 01/07/21 [Rx Last Taken Unknown] Allergy/AdvReac Type Severity Reaction Status Date / Time fentanyl Allergy Rash Verified 01/07/21 18:17 ketorolac tromethamine Allergy Rash Verified 01/07/21 18:17 [From Toradol] COLD MEDICATIONS AdvReac Unknown Uncoded 01/07/21 18:17 PLASTIC TAPE AdvReac Unknown Uncoded 01/07/21 18:17 Family History Grandmother Breast cancer Diabetes Thyroid disorder Grandfather Diabetes Hypertension Father Hypertension Sister Diabetes Thyroid disorder Surgical History gastric diveticulum resection H/O knee surgery H/O tubal ligation H/O: hysterectomy Hx of cholecystectomy Hx of removal of ovary S/P wrist surgery Social History Smoking Status: Current every day smoker alcohol intake: never substance use type: does not use ROS ROS ED Constitutional Constitutional ED: Denies chills or weight loss Eyes Eyes: Denies change in vision or diplopia ENT ENT ED: Denies ear pain, rhinorrhea or sore throat Cardiovascular Cardiovascular: Reports chest pain; Denies orthopnea, palpitations or racing heartbeat Respiratory/Chest Respiratory/Chest: Denies cough, dyspnea or orthopnea Gastrointestinal Gastrointestinal: Reports other Details: Increased indigestion and belching ; Denies abdominal pain, diarrhea, nausea or vomiting Genitourinary Genitourinary ED: Denies dysuria, hematuria or urinary frequency Musculoskeletal Musculoskeletal: Denies arthralgias or myalgias Integumentary Denies abscess or rash Neurologic Neurologic: Denies headache(s) or weakness Psychiatric Psychiatric: Denies anxiety, depression, suicidal ideation or suicidal thoughts Endocrine Endocrinology: Denies polydipsia, polyphagia or polyuria Allergic/Immunologic Allergic/Immunologic ED: Denies mouth swelling, tongue swelling or urticaria EXAM Physical Exam Const Vital Signs: 01/07/21 18:17 01/07/21 18:43 Temperature 97 F L Temperature Source Temporal Pulse Rate 98 Respiratory Rate 18 18 Blood Pressure 129/101 H 123/95 H Blood Pressure Mean 110 104 Pulse Ox 95 97 Oxygen Delivery Method Room Air Room Air Positive well nourished, well developed and obese General Appearance ED: well developed Nutritional Appearance: obese HEENT Reports normocephalic, head/scalp atraumatic and moist mucous membranes Eyes PERRL and EOMs intact bilaterally Neck no lymphadenopathy, supple and no JVD Resp normal respiratory effort and clear to auscultation bilaterally Cardio regular rate, regular rhythm and no murmurs GI normal to inspection, nondistended, normoactive bowel sounds and non-tender Palpation: soft Back/Spine normal ROM Back/Spine Narrative: Tender palpation on the left posterior rib angles with associated muscular spasm Extremity normal to inspection General Extremety ED: Negative for edema General Extremity: Negative for edema Neuro oriented x3 and CN's II-XII intact bilaterally Sensorium / Orientation: alert Motor Exam: strength 5/5 throughout Psych mental status grossly normal Mood & Affect: Negative for depressed or tearful Skin no rashes or lesions noted and no wounds MDM MDM MDM Narrative Medical decision making narrative: Patient is PERC negative. Basic blood work is normal except for glucose of 112. My clinical impression of the single portable chest x-ray is no acute process. Radiology is reading mild left basilar atelectasis. At this point given the above work-up and the fact she is PERC negative I think this is most likely going to be musculoskeletal in nature. She tried some diazepam with no relief we can try some Flexeril and recommend anti-inflammatories. She can try heat or ice. Would recommend a throat pillow for wall stabilization as she moves. Lab Data Attestation: I reviewed the patient's lab results. Labs: Laboratory Results - last 24 hr 01/07/21 01/07/21 18:40 18:40 WBC 7.5 RBC 4.62 Hgb 13.8 Hct 39.9 MCV 86.4 MCH 29.9 MCHC 34.6 RDW Std Deviation 38.9 RDW Coeff of Anushka 12.4 Plt Count 277 MPV 9.9 Immature Gran % (Auto) 0.300 Neut % (Auto) 54.4 Lymph % (Auto) 34.8 [place] % (Auto) 5.3 Eos % (Auto) 4.4 Baso % (Auto) 0.8 Absolute Neuts (auto) 4.1 Absolute Lymphs (auto) 2.61 Nucleated RBC % 0 Sodium 140 Potassium 3.4 L Chloride 106 Carbon Dioxide 27.0 Anion Gap 7 BUN 10 Creatinine 0.72 Estim Creat Clear Calc 113.97 Est GFR (MDRD) Af Amer 119 Est GFR (MDRD) Non-Af 98 BUN/Creatinine Ratio 13.9 Glucose 112 H Calcium 8.9 Total Bilirubin 0.30 AST 18 ALT 53 Alkaline Phosphatase 79 Total Protein 7.4 Albumin 3.7 Globulin 3.7 Albumin/Globulin Ratio 1.0 Lipase 159 Radiography Diagnostic Testing: Radiology Impression Chest X-Ray 01/07/21 19:00 IMPRESSION: Mild left basilar atelectasis. Electronically Signed: Abel Forrest DO at 19:22 EDT Tel [phone], Service support , Discharge Plan Triage Chief Complaint: Chest Other ED Provider: Héctor Byrnes Dx/Rx/DC Orders Clinical Impression: Acute chest wall pain Instructions: ED Strain Chest Wall Prescriptions: New cyclobenzaprine [cyclobenzaprine] 10 MG tablet 10 mg PO TID PRN (Reason: Muscle Spasm) Qty: 15 RF: 0 ibuprofen 600 MG tablet 600 mg PO Q8H PRN PRN (Reason: Pain) Qty: 20 RF: 0 Primary Care Provider: Valentino Castellanos Referrals: Valentino Castellanos MD [Primary Care Provider] - 3-5 Days if not improving Disposition Disposition: Home, self care
--- NOTE | 2021-01-07 19:00 | RAD_ITS ---
STUDY: X-RAY CHEST REASON FOR EXAM: Female, 35 years old. Chest pain TECHNIQUE: Frontal view COMPARISON: 09/18/2019 FINDINGS: The lungs are expanded. Mild left basilar atelectasis. Normal size heart. Normal mediastinum and radha. Normal visualized pulmonary arteries. Normal visualized aortic arch and descending thoracic aorta. Normal visualized thoracic spine. Normal visualized ribs, clavicles, and shoulders. There is no demonstrated abnormality of the visualized soft tissue structures of the upper abdomen. RAD/Chest 1 View (Portable) IMPRESSION: Mild left basilar atelectasis. Electronically Signed: Abel Forrest DO at 19:22 EDT Tel [phone], Service support ,
[2021-01-07 19:03] LABS: Absolute Lymphocyte Count 2.61 X10^3/uL (0.83-4.51); Absolute Neutrophil Count 4.1 X10^3/uL (2.0-7.7); Basophil# 0.06 X10^3/uL; Basophil% 0.8 % (0-1); Eosinophil# 0.33 X10^3/uL; Eosinophils% 4.4 % (0-5); Hematocrit 39.9 % (37-47); Hemoglobin 13.8 g/dL (12.0-15.0); Lymphocyte # 2.61 X10^3/ul (0.83-4.51); Lymphocyte % 34.8 % (19-41); Mean Corp Hgb Conc 34.6 g/dL (32-36); Mean Corpuscular Hgb 29.9 pg (27.0-32.0); Mean Corpuscular Volume 86.4 fL (81-99); Mean Platelet Vol. 9.9 fl (6.2-12.0); Monocyte% 5.3 % (0-10); NRBC Flagged by Analyzer 0 % (0-5); Neutrophil # 4.07 X10^3/uL (2.7-7.7); Neutrophil % 54.4 % (47-70); Platelet Count 277 K/mm3 (150-450); RBC Distribution Width CV 12.4 % (11.6-14.6); RBC Distribution Width SD 38.9 fl (35.1-43.9); Red Blood Count 4.62 M/mm3 (4.2-5.4); White Blood Count 7.5 K/mm3 (4.4-11.0)
[2021-01-07 19:44] LABS: AST(SGOT) 18 U/L (15-37); Alanine Aminotransfer ALT/SGPT 53 U/L (13-56); Albumin, Serum 3.7 g/dL (3.2-5.0); Alkaline Phosphatase 79 U/L (45-117); Anion Gap 7 (5-15); BUN 10 mg/dL (7-18); BUN/Creat Ratio 13.9 RATIO (10-20); Calcium,Total 8.9 mg/dL (8.5-10.1); Chloride 106 mmol/L (98-107); Creatinine, Serum 0.72 mg/dL (0.55-1.02); EST Glomerular Filtration Rate 98 mL/min (>60); Est Glom Filt Rate - Afr Amer 119 mL/min (>60); Estimated Creatinine Clearance 113.97 ml/min; Globulin 3.7 g/dL (2.2-4.2); Glucose 112 mg/dL (74-106); Lipase 159 U/L (73-393); Potassium 3.4 mmol/L (3.5-5.1); Protein, Total 7.4 g/dL (6.4-8.2); Sodium Level 140 mmol/L (136-145)
[2021-01-07] MEDS: Mag Hydrox/Al Hydrox/Simeth 30 ML UDC PO (19:47)
[2021-01-07 21:02] VITALS: BP 142/84; PULSE 91; RESP 20; O2SAT 96
== END 2021-01-07 21:19 | disposition home or self-care (01) ==
PROVIDERS: Emergency Provider Emergency Medicine; PCP Family Medicine
DX: R07.89 Other chest pain (principal); E66.9 Obesity, unspecified; Z68.31 Body mass index [BMI] 31.0-31.9, adult; F17.200 Nicotine dependence, unspecified, uncomplicated
CPT/HCPCS: 71045; 80053; 83690; 85025; 99284; A4216

== ENCOUNTER 2021-01-09 20:51 | Emergency (ER) | payer MEDICAID, SELFPAY ==
[2021-01-09 20:52] VITALS: BP 132/83; PULSE 110; RESP 24; TEMP 36.6; O2SAT 97; BMI 31.0
[2021-01-09 21:32] LABS: Absolute Lymphocyte Count 2.29 X10^3/uL (0.83-4.51); Absolute Neutrophil Count 4.5 X10^3/uL (2.0-7.7); Basophil# 0.05 X10^3/uL; Basophil% 0.7 % (0-1); Eosinophil# 0.33 X10^3/uL; Eosinophils% 4.4 % (0-5); Hematocrit 41.1 % (37-47); Hemoglobin 13.9 g/dL (12.0-15.0); Lymphocyte # 2.29 X10^3/ul (0.83-4.51); Lymphocyte % 30.4 % (19-41); Mean Corp Hgb Conc 33.8 g/dL (32-36); Mean Corpuscular Hgb 29.4 pg (27.0-32.0); Mean Corpuscular Volume 86.9 fL (81-99); Mean Platelet Vol. 9.6 fl (6.2-12.0); Monocyte# 0.35 X10^3/uL; Monocyte% 4.6 % (0-10); NRBC Flagged by Analyzer 0 % (0-5); Neutrophil # 4.48 X10^3/uL (2.7-7.7); Neutrophil % 59.5 % (47-70); Platelet Count 280 K/mm3 (150-450); RBC Distribution Width CV 12.7 % (11.6-14.6); RBC Distribution Width SD 40.1 fl (35.1-43.9); Red Blood Count 4.73 M/mm3 (4.2-5.4); White Blood Count 7.5 K/mm3 (4.4-11.0)
[2021-01-09] MEDS: Dicyclomine 20 MG/2 ML Vial IM (21:35)
[2021-01-09 21:40] LABS: Mucous, Urine 0 SEEN /hpf (<or=2+); Red Blood Cells-Urine 0 SEEN /hpf (0-5); White Blood Cells 0 SEEN /hpf (0-5)
[2021-01-09 21:42] LABS: Color, Urine Yellow (Yellow); Glucose, Dipstick Normal (Normal); Ketone-Dipstick Negative (Negative); Leukocyte Esterase-Dipstick Negative /ul (Negative); Nitrite-Dipstick Negative (Negative); Occult Blood-Urine Negative /ul (Negative); Protein-Dipstick Negative (Negative); Urine Bilirubin Dipstick Negative (Negative); Urine Clarity Clear (Clear); Urine Urobilinogen Normal (Normal)
[2021-01-09 21:44] LABS: Lipase 149 U/L (73-393)
[2021-01-09 21:47] LABS: Internal QC Validated? YES +Cl - CLEAR BKGD; Pregnancy, Urine Negative Negative
[2021-01-09 21:49] LABS: Bacteria RARE /hpf (None Seen); Squamous Epithelial Cells - UA 0-5 SEEN /hpf (5-10)
[2021-01-09 22:04] LABS: AST(SGOT) 23 U/L (15-37); Alanine Aminotransfer ALT/SGPT 58 U/L (13-56); Albumin, Serum 3.8 g/dL (3.2-5.0); Alkaline Phosphatase 86 U/L (45-117); Anion Gap 6 (5-15); BUN 10 mg/dL (7-18); BUN/Creat Ratio 12.2 RATIO (10-20); Calcium,Total 9.1 mg/dL (8.5-10.1); Chloride 107 mmol/L (98-107); Creatinine, Serum 0.82 mg/dL (0.55-1.02); EST Glomerular Filtration Rate 84 mL/min (>60); Est Glom Filt Rate - Afr Amer 102 mL/min (>60); Estimated Creatinine Clearance 100.07 ml/min; Globulin 3.7 g/dL (2.2-4.2); Glucose 120 mg/dL (74-106); Potassium 3.7 mmol/L (3.5-5.1); Protein, Total 7.5 g/dL (6.4-8.2); Sodium Level 141 mmol/L (136-145)
--- NOTE | 2021-01-09 22:14 | CT_ITS ---
STUDY: CT ABDOMEN AND PELVIS WITH CONTRAST REASON FOR EXAM: Female, 35 years old. Pain. TECHNIQUE: Transaxial images were obtained from the dome of the diaphragm to the symphysis pubis without oral contrast. IV 100mL Isovue-370 was administered. Sagittal and coronal images were reconstructed. Individualized dose optimization techniques were used for this CT. COMPARISON: 09/18/2019 CT abdomen pelvis. FINDINGS: Partially visualized lower chest: Subsegmental atelectasis lung bases. Liver: Homogenous enhancement with no concerning lesions. Gallbladder and biliary tree: Status post cholecystectomy. No biliary ductal dilation. Pancreas: No pancreatic lesions or inflammation. Spleen: Normal size, no splenic lesions. Adrenal glands: No concerning masses. Kidneys and ureters: No hydronephrosis or renal stones. No concerning masses. No ureteral dilation. Bowel: Normal appendix. No obstruction or inflammation of the bowel. Urinary bladder: No stones or wall thickening. Reproductive: Status post hysterectomy. Vaginal cuff unremarkable. Neither ovary is visible. No concerning pelvic mass. Vascular: No abdominal aortic aneurysm. No DVT. Patent portal and mesenteric veins. Retroperitoneal and peritoneal spaces: No free fluid or free air. Osseous: No acute osseous abnormality. Abdominal and pelvic wall: No concerning findings. CT/Abdomen/Pelvis W IV Cont ONLY IMPRESSION: No acute or concerning finding. Electronically Signed: Kaz Jensen MD at 22:59 EDT Tel , Service support ,
--- NOTE | 2021-01-09 23:07 | EDS_ITS ---
HPI History of Present Illness Chief Complaint: Abd Pain Informant: patient Narrative Narrative: 35-year-old female presents to the emergency department with continued left upper quadrant lower chest pain. She notes that I saw her on Sunday with a negative work-up. It was felt that probably be chest wall related as it was worse with movement. Now she is notes increased belching. She states the pain seems to be worsening she talk to her doctor and was told to come to the emergency. During her last visit CBC CMP lipase UA normal. She was PERC negative. Patient continues to hold the left side of her upper abdomen/lower chest. No fever. No changes in bowel habits. No urinary symptoms. PFSH PFS Medical History (Updated 01/09/21 @ 23:[address] Héctor Byrnes DO) Anxiety and depression Asthma Fatigue Gallstones Gestational diabetes GI problem H/O gestational diabetes mellitus, not currently IBS (irritable bowel syndrome) Knee pain Severe headache Home Medications cyclobenzaprine 10 mg PO TID PRN #15 tablet 01/07/21 [Rx Last Taken Unknown] ibuprofen 600 mg PO Q8H PRN PRN #20 tablet 01/07/21 [Rx Last Taken Unknown] Allergy/AdvReac Type Severity Reaction Status Date / Time fentanyl Allergy Rash Verified 01/09/21 20:54 ketorolac tromethamine Allergy Rash Verified 01/09/21 20:54 [From Toradol] COLD MEDICATIONS AdvReac Unknown Uncoded 01/09/21 20:54 PLASTIC TAPE AdvReac Unknown Uncoded 01/09/21 20:54 Family History Grandmother Breast cancer Diabetes Thyroid disorder Grandfather Diabetes Hypertension Father Hypertension Sister Diabetes Thyroid disorder Surgical History gastric diveticulum resection H/O knee surgery H/O tubal ligation H/O: hysterectomy Hx of cholecystectomy Hx of removal of ovary S/P wrist surgery Social History Smoking Status: Current every day smoker alcohol intake: never substance use type: does not use ROS ROS ED Constitutional Constitutional ED: Denies chills or weight loss Eyes Eyes: Denies change in vision or diplopia ENT ENT ED: Denies ear pain, rhinorrhea or sore throat Cardiovascular Cardiovascular: Denies chest pain, orthopnea, palpitations or racing heartbeat Respiratory/Chest Respiratory/Chest: Denies cough, dyspnea or orthopnea Gastrointestinal Gastrointestinal: Reports abdominal pain and other Details: Belching ; Denies diarrhea, nausea or vomiting Genitourinary Genitourinary ED: Denies dysuria, hematuria or urinary frequency Musculoskeletal Musculoskeletal: Denies arthralgias or myalgias Integumentary Denies abscess or rash Neurologic Neurologic: Denies headache(s) or weakness Psychiatric Psychiatric: Denies anxiety, depression, suicidal ideation or suicidal thoughts Endocrine Endocrinology: Denies polydipsia, polyphagia or polyuria Allergic/Immunologic Allergic/Immunologic ED: Denies mouth swelling, tongue swelling or urticaria EXAM Physical Exam Narrative Exam Narrative: Patient is sitting up in the bed holding the left upper quadrant lower chest wall. Const Vital Signs: 01/09/21 20:52 Temperature 97.8 F Temperature Source Temporal Pulse Rate 110 H Respiratory Rate 24 H Blood Pressure 132/83 H Blood Pressure Mean 99 Pulse Ox 97 Oxygen Delivery Method Room Air Positive well nourished and well developed General Appearance ED: well developed HEENT Reports normocephalic, head/scalp atraumatic and moist mucous membranes Eyes PERRL and EOMs intact bilaterally Neck no lymphadenopathy, supple and no JVD Chest Wall Chest: tenderness Resp normal respiratory effort and clear to auscultation bilaterally Cardio regular rate, regular rhythm and no murmurs GI Palpation: soft and tender LUQ Back/Spine no CVA tenderness and normal ROM Extremity normal to inspection General Extremety ED: Negative for edema General Extremity: Negative for edema Neuro oriented x3 and CN's II-XII intact bilaterally Sensorium / Orientation: alert Motor Exam: strength 5/5 throughout Psych mental status grossly normal Mood & Affect: Negative for depressed or tearful Skin no rashes or lesions noted and no wounds MDM MDM MDM Narrative Medical decision making narrative: Patient's labs are essentially negative and unchanged from 2 days ago. Because of the patient's tachycardia tonight I ordered a D-dimer which was in the normal range. Urinalysis normal. CT of the abdomen pelvis with IV contrast was obtained and demonstrates no acute pathology. I do not have an explanation for the patient's pain. I have reviewed her chart and have found several visits where they have been able to find her side pain cause. I do not believe at this point I am going to prescribe any narcotics. I recommend continued anti-inflammatories and Tylenol. Lab Data Attestation: I reviewed the patient's lab results. Labs: Laboratory Results - last 24 hr 01/09/21 01/09/21 01/09/21 21:15 21:15 21:15 WBC 7.5 RBC 4.73 Hgb 13.9 Hct 41.1 MCV 86.9 MCH 29.4 MCHC 33.8 RDW Std Deviation 40.1 RDW Coeff of Anushka 12.7 Plt Count 280 MPV 9.6 Immature Gran % (Auto) 0.400 Neut % (Auto) 59.5 Lymph % (Auto) 30.4 [place] % (Auto) 4.6 Eos % (Auto) 4.4 Baso % (Auto) 0.7 Absolute Neuts (auto) 4.5 Absolute Lymphs (auto) 2.29 Nucleated RBC % 0 D-Dimer Quant (PE/DVT) Sodium 141 Potassium 3.7 Chloride 107 Carbon Dioxide 28.0 Anion Gap 6 BUN 10 Creatinine 0.82 Estim Creat Clear Calc 100.07 Est GFR (MDRD) Af Amer 102 Est GFR (MDRD) Non-Af 84 BUN/Creatinine Ratio 12.2 Glucose 120 H Calcium 9.1 Total Bilirubin 0.30 AST 23 ALT 58 H Alkaline Phosphatase 86 Total Protein 7.5 Albumin 3.8 Globulin 3.7 Albumin/Globulin Ratio 1.0 Lipase 149 Urine Color Urine Clarity Urine pH Ur Specific Leslie Urine Protein Urine Glucose (UA) Urine Ketones Urine Occult Blood Urine Nitrite Urine Bilirubin Urine Urobilinogen Ur Leukocyte Esterase Urine RBC Urine WBC Ur Squamous Epith Cells Urine Bacteria Urine Mucus Urine Test 01/09/21 01/09/21 01/09/21 21:15 21:35 21:35 WBC RBC Hgb Hct MCV MCH MCHC RDW Std Deviation RDW Coeff of Anushka Plt Count MPV Immature Gran % (Auto) Neut % (Auto) Lymph % (Auto) [place] % (Auto) Eos % (Auto) Baso % (Auto) Absolute Neuts (auto) Absolute Lymphs (auto) Nucleated RBC % D-Dimer Quant (PE/DVT) 0.40 Sodium Potassium Chloride Carbon Dioxide Anion Gap BUN Creatinine Estim Creat Clear Calc Est GFR (MDRD) Af Amer Est GFR (MDRD) Non-Af BUN/Creatinine Ratio Glucose Calcium Total Bilirubin AST ALT Alkaline Phosphatase Total Protein Albumin Globulin Albumin/Globulin Ratio Lipase Urine Color Yellow Urine Clarity Clear Urine pH 7.0 Ur Specific Leslie 1.010 Urine Protein Negative Urine Glucose (UA) Normal Urine Ketones Negative Urine Occult Blood Negative Urine Nitrite Negative Urine Bilirubin Negative Urine Urobilinogen Normal Ur Leukocyte Esterase Negative Urine RBC 0 SEEN Urine WBC 0 SEEN Ur Squamous Epith Cells 0-5 SEEN Urine Bacteria RARE Urine Mucus 0 SEEN Urine Test Negative Radiography Diagnostic Testing: Radiology Impression Abdomen/Pelvis CT 01/09/21 22:14 IMPRESSION: No acute or concerning finding. Electronically Signed: Kaz Jensen MD at 22:59 EDT Tel , Service support , Discharge Plan Triage Chief Complaint: Abd Pain ED Provider: Héctor Byrnes Dx/Rx/DC Orders Clinical Impression: Abdominal pain, acute Instructions: ED Flank Pain, Uncertain Cause Prescriptions: No Action cyclobenzaprine [cyclobenzaprine] 10 MG tablet 10 mg PO TID PRN (Reason: Muscle Spasm) Qty: 15 RF: 0 ibuprofen 600 MG tablet 600 mg PO Q8H PRN PRN (Reason: Pain) Qty: 20 RF: 0 Primary Care Provider: Valentino Castellanos Referrals: Valention Castellanos MD [Primary Care Provider] - 1-2 Days if not improving Disposition Disposition: Home, self care
[2021-01-09 23:16] VITALS: BP 125/90; PULSE 87; RESP 22; O2SAT 96
== END 2021-01-09 23:17 | disposition home or self-care (01) ==
PROVIDERS: Emergency Provider Emergency Medicine; PCP Family Medicine
DX: R10.32 Left lower quadrant pain (principal); F17.200 Nicotine dependence, unspecified, uncomplicated
CPT/HCPCS: 74177; 80053; 81001; 81025; 83690; 85025; 85379; 96372; 99284; Q9967; A4216

== ENCOUNTER → 2021-01-11 12:21 | Outpatient (CLI) | payer MEDICAID, SELFPAY ==
[2021-01-09 20:52] VITALS: BMI 31.0
--- NOTE | 2021-01-11 12:26 | RAD_ITS ---
STUDY: X-RAY - UNILATERAL RIBS ( LEFT ) REASON FOR EXAM: Female, 35 years old. Pain. TECHNIQUE: 4 view(s) of the ribs. COMPARISON: Chest, 01/07/2021. FINDINGS: Normal visualized ribs without a demonstrated fracture. Minimal linear atelectatic changes at the left lung base which appear unchanged. There is no pneumothorax or new infiltrate. RAD/Ribs Unil 2V No CXR IMPRESSION: Normal x-ray examination of the left ribs. Electronically Signed: Albert Lowe DO at 17:00 EDT Tel [phone], Service support ,
--- NOTE | 2021-01-11 12:27 | RAD_ITS ---
STUDY: X-RAY - THORACIC SPINE REASON FOR EXAM: Female, 35 years old. Left-sided rib pain. No known injury. TECHNIQUE: 3 view(s) of the thoracic spine were obtained. COMPARISON: Two-view chest, 01/11/2021. FINDINGS: Normal kyphosis of the thoracic spine. There is no substantial scoliosis. Normal thoracic vertebrae and endplates. Normal disc space heights. There is no evidence of acute fracture or loss of vertebral axial height. Minimal bibasilar atelectasis. RAD/Thoracic Spine 2 Views IMPRESSION: Normal x-ray examination of the thoracic spine. Electronically Signed: Albert Lowe DO at 17:57 EDT Tel [phone], Service support ,
--- NOTE | 2021-01-11 12:40 | RAD_ITS ---
STUDY: X-RAY CHEST REASON FOR EXAM: Female, 35 years old. Left-sided rib pain. TECHNIQUE: PA and lateral views of the chest. COMPARISON: Left RIBS, 01/11/2021. Chest, 01/07/2021. FINDINGS: There is linear atelectasis at both lung bases. There is no acute infiltrate or mass. There is no pneumothorax. There is no demonstrated pleural abnormality. Normal size heart. Normal mediastinum and radha. Normal visualized pulmonary arteries. There is atherosclerotic calcification of the aortic arch with tortuosity. Exam There is degenerative osteoarthritis of the bilateral shoulders. There is no demonstrated abnormality of the visualized soft tissue structures of the upper abdomen. RAD/Chest PA and Lateral IMPRESSION: 1. Bibasilar atelectasis without other change from previous exam Electronically Signed: Albert Lowe DO at 17:57 EDT Tel [phone], Service support ,
[2021-01-11 15:26] LABS: Absolute Lymphocyte Count 1.94 X10^3/uL (0.83-4.51); Absolute Neutrophil Count 4.3 X10^3/uL (2.0-7.7); Basophil# 0.05 X10^3/uL; Basophil% 0.7 % (0-1); Eosinophil# 0.35 X10^3/uL; Hematocrit 42.1 % (37-47); Hemoglobin 14.4 g/dL (12.0-15.0); Lymphocyte # 1.94 X10^3/ul (0.83-4.51); Lymphocyte % 27.5 % (19-41); Mean Corp Hgb Conc 34.2 g/dL (32-36); Mean Corpuscular Hgb 29.8 pg (27.0-32.0); Mean Platelet Vol. 9.9 fl (6.2-12.0); Monocyte# 0.35 X10^3/uL; NRBC Flagged by Analyzer 0 % (0-5); Neutrophil # 4.34 X10^3/uL (2.7-7.7); Neutrophil % 61.4 % (47-70); Platelet Count 302 K/mm3 (150-450); RBC Distribution Width CV 12.6 % (11.6-14.6); RBC Distribution Width SD 39.9 fl (35.1-43.9); Red Blood Count 4.84 M/mm3 (4.2-5.4); White Blood Count 7.1 K/mm3 (4.4-11.0)
[2021-01-11 15:45] LABS: Erythrocyte Sedimentation Rate 22 mm/hr (0-30)
[2021-01-11 16:12] LABS: Vitamin B12 321 pg/mL (211-911); Vitamin D,25 Hydroxy 16.3 ng/mL
[2021-01-11 16:41] LABS: AST(SGOT) 22 U/L (15-37); Alanine Aminotransfer ALT/SGPT 57 U/L (13-56); Albumin, Serum 3.9 g/dL (3.2-5.0); Alkaline Phosphatase 75 U/L (45-117); Anion Gap 8 (5-15); BUN 9 mg/dL (7-18); BUN/Creat Ratio 12.1 RATIO (10-20); Calcium,Total 9.4 mg/dL (8.5-10.1); Chloride 108 mmol/L (98-107); Cholesterol 219 mg/dL (200); Creatinine, Serum 0.74 mg/dL (0.55-1.02); EST Glomerular Filtration Rate 94 mL/min (>60); Est Glom Filt Rate - Afr Amer 114 mL/min (>60); Globulin 3.9 g/dL (2.2-4.2); Glucose 97 mg/dL (74-106); High Density Lipoprotein 33 mg/dL; Iron 78 ug/dL (50-170); Potassium 3.7 mmol/L (3.5-5.1); Protein, Total 7.8 g/dL (6.4-8.2); Sodium Level 140 mmol/L (136-145); T4 Free Direct 0.91 ng/dL (0.76-1.46); Thyroid Stim Hormone (TSH) 3.92 uIU/mL (0.358-3.74); Triglycerides 265 mg/dL; Very Low Density Lipoprotein 53 mg/dL (5-40)
== END ==
PROVIDERS: PCP Family Medicine; Referring Provider Family Medicine; Visit Provider Family Medicine
DX: R07.81 Pleurodynia (principal); R53.83 Other fatigue; Z13.220 Encounter for screening for lipoid disorders
CPT/HCPCS: 36415; 71046; 71100; 72070; 80053; 80061; 82306; 82533; 82607; 83540; 84439; 84443; 85025; 85652

== ENCOUNTER 2021-01-28 04:50 | Emergency (ER) | payer MEDICAID, SELFPAY ==
[2021-01-28 04:51] VITALS: BP 147/112; PULSE 101; RESP 16; TEMP 36.7; O2SAT 96; BMI 35.6
--- NOTE | 2021-01-28 05:15 | ED.VIS.DENTA ---
HPI History of Present Illness Chief Complaint: Dental Narrative Narrative: 35-year-old female complains of right-sided facial and neck pain. States that it is a sharp pain is 10 out of 10 severity. Is worsened by opening her mouth, talking, or swallowing. She taken ibuprofen without relief. She denies hot or cold sensitivity. Patient denies any fever or chills. PFSH PFS Medical History (Updated 01/28/21 @ 05:[address] Nicolás Hopkins MD) Anxiety and depression Asthma Fatigue Gallstones Gestational diabetes GI problem H/O gestational diabetes mellitus, not currently IBS (irritable bowel syndrome) Knee pain Severe headache Home Medications NK 01/28/21 [History Last Taken Unknown] amoxicillin 500 mg PO TID #30 tab 01/28/21 [Rx Last Taken Unknown] hydrocodone-acetaminophen 1 tab PO Q6H PRN 3 Days #10 tab 01/28/21 [Rx Last Taken Unknown] naproxen 500 mg PO BID #14 tab 01/28/21 [Rx Last Taken Unknown] Allergy/AdvReac Type Severity Reaction Status Date / Time fentanyl Allergy Rash Verified 01/28/21 04:56 ketorolac tromethamine Allergy Rash Verified 01/28/21 04:56 [From Toradol] COLD MEDICATIONS AdvReac Unknown Uncoded 01/28/21 04:56 PLASTIC TAPE AdvReac Unknown Uncoded 01/28/21 04:56 Family History Grandmother Breast cancer Diabetes Thyroid disorder Grandfather Diabetes Hypertension Father Hypertension Sister Diabetes Thyroid disorder Surgical History gastric diveticulum resection H/O knee surgery H/O tubal ligation H/O: hysterectomy Hx of cholecystectomy Hx of removal of ovary S/P wrist surgery Social History Smoking Status: Current every day smoker alcohol intake: never substance use type: does not use ROS ROS ED Constitutional Constitutional ED: Denies chills, fever(s) or sweats Eyes Eyes: Denies change in vision ENT ENT ED: Reports sore throat Cardiovascular Cardiovascular: Denies chest pain Respiratory/Chest Respiratory/Chest: Denies cough, dyspnea or dyspnea on exertion Gastrointestinal Gastrointestinal: Denies abdominal pain, diarrhea, melena, nausea or vomiting Genitourinary Genitourinary ED: Denies dysuria or urinary frequency Musculoskeletal Musculoskeletal: Denies myalgias Integumentary Denies rash Neurologic Neurologic: Denies headache(s), paresthesias or weakness EXAM Physical Exam Const Vital Signs: 01/28/21 04:51 Temperature 98.1 F Temperature Source Oral Pulse Rate 101 H Respiratory Rate 16 Blood Pressure 147/112 H Blood Pressure Mean 123 Pulse Ox 96 Oxygen Delivery Method Room Air Positive well nourished and well developed General Appearance ED: well developed HEENT Reports other No trismus. No edema of floor of the mouth. No focal abscess. Pain with percussion HEENT Narrative: Widespread dental decay. No focal abscess. No edema of the floor of her mouth. She does have mild trismus. Due to this I am unable to visualize her tonsils. She does not have a hot potato voice to suggest peritonsillar abscess. She has no pain with movement of her trachea. There is no cervical lymphadenopathy. normocephalic, atraumatic and other Eyes PERRL Neck no lymphadenopathy, supple and no JVD General: Negative for tenderness Chest Wall Chest: Negative for tenderness Resp clear to auscultation bilaterally Effort and Inspection: Negative for respiratory distress Cardio regular rate, regular rhythm and no murmurs GI normal to inspection, nondistended, normoactive bowel sounds, soft to palpation and non-tender GI Narrative: No guarding, rebound, or peritoneal signs. Back/Spine no thoracic nor lumbar tenderness Extremity General Extremety ED: Negative for edema or tenderness General Extremity: Negative for edema Neuro oriented x3, CN's II-XII intact bilaterally and no sensory deficits noted Sensorium / Orientation: awake and alert Motor Exam: strength 5/5 throughout Psych mental status grossly normal Skin no rashes or lesions noted MDM [facility] Treatment and Re-Evaluation Comments:: Emergency department course: An [facility] report was obtained which shows patient had prescriptions for 3 opiates in the past year. She was treated with [place], naproxen, and amoxicillin here. The amoxicillin is also to cover the possibility of strep throat. However, given her trismus I suspect this is dental in origin with irritation of the masseter muscle. Treatment plan: Patient will be discharged naproxen, [place], and amoxicillin. She given a list of local dentist to follow-up with a soon as possible. Insert return Disposition: To home in improved and stable condition. Discharge Plan Triage Chief Complaint: Dental ED Provider: Nicolás Hopkins Dx/Rx/DC Orders Clinical Impression: Pain, dental Instructions: ED Dental Pain Prescriptions: New hydrocodone-acetaminophen 5-325 mg tablet 1 tab PO Q6H PRN (Reason: pain) 3 Days Qty: 10 RF: 0 amoxicillin 500 MG tablet 500 mg PO TID Qty: 30 RF: 0 naproxen 500 MG tablet 500 mg PO BID Qty: 14 RF: 0 No Action NK RF: 0 Primary Care Provider: Valentino Castellanos Referrals: Valentino Castellanos MD [Primary Care Provider] - Dentist,Your [STAFF PHYSICIAN] - As soon as possible
[2021-01-28] MEDS: HYDROcodone Bitartrate/Apap 5/325 Tablet PO (05:26)
[2021-01-28] MEDS: Naproxen 250 MG Tablet 500 MG PO (05:26)
[2021-01-28] MEDS: AMOXICILLIN 500 MG CAPSULE PO (05:26)
== END 2021-01-28 05:32 | disposition home or self-care (01) ==
PROVIDERS: Emergency Provider Emergency Medicine; PCP Family Medicine
DX: K08.89 Other specified disorders of teeth and supporting structures (principal); F17.200 Nicotine dependence, unspecified, uncomplicated
CPT/HCPCS: 99283

== ENCOUNTER 2021-04-04 01:24 | Emergency (ER) | payer MEDICAID, SELFPAY ==
[2021-04-04 01:25] VITALS: BP 132/121; PULSE 85; RESP 16; TEMP 36.3; O2SAT 96; BMI 36.1
--- NOTE | 2021-04-04 01:33 | EDS_ITS ---
HPI History of Present Illness Chief Complaint: Edema Detail of Chief Complaint: Bilateral leg swelling and bilateral ear pain Informant: patient Narrative Narrative: Patient presents to the emergency department with several complaints. She states that she just got back from [place] yesterday morning. Patient noticed that her legs are swollen from the knees down to her ankles. Patient states that she did walk a lot when she was in [place]. She denies chest pain or shortness of breath. She has no history of PE or DVT. She is a smoker. Patient also complains of bilateral ear pain. She said no fever or cough. Prior similar symptoms: No PFSH PFSH Medical History (Updated 04/04/21 @ 02:[address] Jesús Joseph, ) Anxiety and depression Asthma Fatigue Gallstones Gestational diabetes GI problem H/O gestational diabetes mellitus, not currently IBS (irritable bowel syndrome) Knee pain Severe headache Home Medications amoxicillin 500 mg PO TID #30 tab 01/28/21 [Rx Last Taken Unknown] hydrocodone-acetaminophen 1 tab PO Q6H PRN 3 Days #10 tab 01/28/21 [Rx Last Taken Unknown] naproxen 500 mg PO BID #14 tab 01/28/21 [Rx Last Taken Unknown] furosemide [Lasix] 40 mg PO DAILY #3 tab 04/04/21 [Rx Last Taken Unknown] Allergy/AdvReac Type Severity Reaction Status Date / Time fentanyl Allergy Rash Verified 01/28/21 04:56 ketorolac tromethamine Allergy Rash Verified 01/28/21 04:56 [From Toradol] COLD MEDICATIONS AdvReac Unknown Uncoded 01/28/21 04:56 PLASTIC TAPE AdvReac Unknown Uncoded 01/28/21 04:56 Family History Grandmother Breast cancer Diabetes Thyroid disorder Grandfather Diabetes Hypertension Father Hypertension Sister Diabetes Thyroid disorder Surgical History gastric diveticulum resection H/O knee surgery H/O tubal ligation H/O: hysterectomy Hx of cholecystectomy Hx of removal of ovary S/P wrist surgery Social History Smoking Status: Current every day smoker tobacco type: cigarettes alcohol intake: never substance use type: does not use ROS ROS ED Constitutional Constitutional ED: Reports systems reviewed and no addt'l complaints, except as documented; Denies body ache(s), change in weight or chills Eyes Eyes: Denies acute decrease in peripheral vision, change in vision, double vision or loss of vision ENT ENT ED: Reports none and ear pain; Denies lip swelling, loss taste/smell, neck pain, otalgia or sore throat Cardiovascular Cardiovascular: Reports none; Denies abdominal pain, chest pain with activity, leg edema, lightheadedness, palpitations, rapid heart rate or syncope Respiratory/Chest Respiratory/Chest: Reports none; Denies change in mental status, dry cough, dyspnea, hemoptysis, shortness of breath at rest or shortness of breath with exertion Gastrointestinal Gastrointestinal: Reports none; Denies abdominal pain, change in stool character, diarrhea, hematemesis, hematochezia, melena, rectal bleeding or vomiting Genitourinary Genitourinary ED: Reports none; Denies abdominal discomfort, anuria, dysuria, genital pain or polyuria Musculoskeletal Musculoskeletal: Reports none and other Details: Bilateral lower extremity swelling ; Denies arthralgias, back pain, difficulty walking, extremity pain, muscle weakness or myalgias Integumentary Reports none; Denies abscess or rash Neurologic Neurologic: Reports none; Denies abnormal gait, confusion, focal weakness, frequent falls, headache(s), loss of vision, numbness, paresthesias, radicular pain, vertigo or weakness Psychiatric Psychiatric: Reports systems reviewed and no addt'l complaints, except as documented and none; Denies behavioral changes, confusion, difficulty concentrating, hallucinations, suicidal ideation, tactile hallucinations or visual hallucinations Endocrine Endocrinology: Denies none, cold intolerance, excessive sweating, fatigue or heat intolerance Hematologic/Lymphatic Hematologic/Lymphatic: Reports none; Denies anemia, easy bleeding or easy bruising Allergic/Immunologic Allergic/Immunologic ED: Denies as per HPI, none, lip swelling, mouth swelling, throat swelling, tongue swelling or hives EXAM Physical Exam Const Vital Signs: 04/04/21 01:25 04/04/21 01:30 Temperature 97.3 F L Temperature Source Temporal Pulse Rate 85 Respiratory Rate 16 Respiratory Pattern Normal Blood Pressure 132/121 H Blood Pressure Mean 124 Pulse Ox 96 Oxygen Delivery Method Room Air Positive well nourished and well developed General Appearance ED: well developed and NAD HEENT Reports TM's clear and moist mucous membranes HEENT Narrative: Evaluation of patient's TMs does show some clear fluid and mild bulging of the TMs. No erythema or signs of infection. normocephalic and atraumatic; Negative for trauma or tenderness Tympanic Membrane ED: Yes TM's clear Eyes PERRL and EOMs intact bilaterally General Eye ED: Negative for pale conjunctiva or scleral icterus Neck no lymphadenopathy, supple and no JVD General: Negative for tenderness Chest Wall inspection of chest normal and palpation of chest normal Chest: Negative for tenderness Resp normal respiratory effort and clear to auscultation bilaterally Effort and Inspection: Negative for respiratory distress or pain with movement Auscultation: Negative for rhonchi, wheezes or diminished lung sounds Cardio regular rate, regular rhythm, S1 normal heart sound, S2 normal heart sound and no murmurs Peripheral Pulses: pulses 2+ throughout GI normal to inspection, nondistended, normoactive bowel sounds, soft to palpation, non-tender, non-distended and no masses Back/Spine no CVA tenderness and no thoracic nor lumbar tenderness Extremity normal to inspection Extremity Narrative: Patient has trace edema both lower extremities. Negative Homans' sign. No ropes or cords palpated. She is neurovascular intact. General Extremety ED: Yes edema General Extremity: edema Neuro oriented x3, CN's II-XII intact bilaterally, no sensory deficits noted and gait normal Sensorium / Orientation: awake, alert, oriented to person, oriented to place and oriented to time Motor Exam: strength 5/5 throughout and strength abnormal Psych mental status grossly normal Skin no rashes or lesions noted and no wounds MDM MDM MDM Narrative Medical decision making narrative: Patient's labs unremarkable and D-dimer was negative. My suspicion for DVT at this point extremely low. Patient advised to use Zyrtec regarding her ear pain and suspected eustachian tube dysfunction. I will write patient for Lasix for 3 days. Patient to follow-up with her primary care physician in 3 to 5 days. Lab Data Attestation: I reviewed the patient's lab results. Labs: Laboratory Results - last 24 hr 04/04/21 01:42 WBC 6.9 RBC 4.42 Hgb 13.2 Hct 39.4 MCV 89.1 MCH 29.9 MCHC 33.5 RDW Std Deviation 40.9 RDW Coeff of Anushka 12.5 Plt Count 240 MPV 9.3 Immature Gran % (Auto) 0.400 Neut % (Auto) 54.7 Lymph % (Auto) 33.6 [place] % (Auto) 5.1 Eos % (Auto) 5.5 H Baso % (Auto) 0.7 Absolute Neuts (auto) 3.8 Absolute Lymphs (auto) 2.33 Nucleated RBC % 0 Discharge Plan Triage Chief Complaint: Edema ED Provider: Jesús Joseph Dx/Rx/DC Orders Clinical Impression: Dysfunction of both eustachian tubes, Leg edema Instructions: ED Earache Without Infection (Adult), ED Peripheral Edema, Bilateral Prescriptions: New furosemide [Lasix] 40 mg tablet 40 mg PO DAILY Qty: 3 RF: 0 No Action hydrocodone-acetaminophen 5-325 mg tablet 1 tab PO Q6H PRN (Reason: pain) 3 Days Qty: 10 RF: 0 amoxicillin 500 MG tablet 500 mg PO TID Qty: 30 RF: 0 naproxen 500 MG tablet 500 mg PO BID Qty: 14 RF: 0 Primary Care Provider: Valentino Castellanos Referrals: Valentino Castellanos MD [Primary Care Provider] - 3-5 Days Disposition Disposition: Home, Self Care
[2021-04-04 01:47] LABS: Absolute Lymphocyte Count 2.33 X10^3/uL (0.83-4.51); Absolute Neutrophil Count 3.8 X10^3/uL (2.0-7.7); Basophil# 0.05 X10^3/uL; Basophil% 0.7 % (0-1); Eosinophil# 0.38 X10^3/uL; Eosinophils% 5.5 % (0-5); Hematocrit 39.4 % (37-47); Hemoglobin 13.2 g/dL (12.0-15.0); Lymphocyte # 2.33 X10^3/ul (0.83-4.51); Lymphocyte % 33.6 % (19-41); Mean Corp Hgb Conc 33.5 g/dL (32-36); Mean Corpuscular Hgb 29.9 pg (27.0-32.0); Mean Corpuscular Volume 89.1 fL (81-99); Mean Platelet Vol. 9.3 fl (6.2-12.0); Monocyte# 0.35 X10^3/uL; Monocyte% 5.1 % (0-10); NRBC Flagged by Analyzer 0 % (0-5); Neutrophil # 3.79 X10^3/uL (2.7-7.7); Neutrophil % 54.7 % (47-70); Platelet Count 240 K/mm3 (150-450); RBC Distribution Width CV 12.5 % (11.6-14.6); RBC Distribution Width SD 40.9 fl (35.1-43.9); Red Blood Count 4.42 M/mm3 (4.2-5.4); White Blood Count 6.9 K/mm3 (4.4-11.0)
[2021-04-04 02:02] LABS: D-Dimer Quantitative (DVT/PE) 0.28 FEU/ug/m (0.27-0.49)
[2021-04-04 02:05] LABS: Anion Gap 5 (5-15); BUN 10 mg/dL (7-18); BUN/Creat Ratio 12.6 RATIO (10-20); Chloride 107 mmol/L (98-107); EST Glomerular Filtration Rate 87 mL/min (>60); Est Glom Filt Rate - Afr Amer 105 mL/min (>60); Estimated Creatinine Clearance 102.58 ml/min; Glucose 114 mg/dL (74-106); Potassium 3.3 mmol/L (3.5-5.1); Sodium Level 140 mmol/L (136-145)
[2021-04-04 02:17] VITALS: BP 135/92
== END 2021-04-04 02:22 | disposition home or self-care (01) ==
PROVIDERS: Emergency Provider Emergency Medicine; PCP Family Medicine
DX: R60.0 Localized edema (principal); H69.83 Other specified disorders of Eustachian tube, bilateral; F17.210 Nicotine dependence, cigarettes, uncomplicated
CPT/HCPCS: 80048; 85025; 85379; 99283; A4216

== ENCOUNTER 2021-04-22 18:22 | Emergency (ER) | payer MEDICAID, SELFPAY ==
[2021-04-22 18:22] VITALS: BP 141/82; PULSE 94; RESP 18; TEMP 36.4; O2SAT 96; BMI 31.0
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
[2021-04-22 20:32] VITALS: BP 125/89; PULSE 82; RESP 20
[2021-04-22] MEDS: morphine 10 MG/ML Syringe IM (20:36)
[2021-04-22] MEDS: cycloBENZAPRine HCl 10 MG Tablet PO (20:36)
[2021-04-22 22:11] VITALS: BP 125/86; PULSE 82; RESP 16
== END 2021-04-22 22:33 | disposition home or self-care (01) ==
PROVIDERS: Emergency Provider Emergency Medicine; PCP Family Medicine
DX: S16.1XXA Strain of muscle, fascia and tendon at neck level, initial encounter (principal); V43.52XA Car driver injured in collision with other type car in traffic accident, initial encounter; Y93.89 Activity, other specified; Y92.9 Unspecified place or not applicable; Y99.9 Unspecified external cause status; M79.642 Pain in left hand; F17.210 Nicotine dependence, cigarettes, uncomplicated
CPT/HCPCS: 72040; 73130; 99283

== ENCOUNTER → 2021-05-02 15:05 | Outpatient (CLI) | payer MEDICAID, SELFPAY ==
--- NOTE | 2021-05-02 15:08 | RAD_ITS ---
STUDY: X-RAY - LEFT KNEE REASON FOR EXAM: Female, 35 years old. PAIN TECHNIQUE: 4 view(s) of the knee. COMPARISON: None. FINDINGS: Normal visualized distal femur. Normal visualized proximal tibia and fibula. Normal proximal tibiofibular articulation. Normal medial femorotibial compartment. Normal lateral femorotibial compartment. Normal patellofemoral articulation. The soft tissue structures are unremarkable. RAD/Knee 4 or More Views IMPRESSION: Normal x-ray examination of the knee. Electronically Signed: Nicholas Ty MD at 16:06 EDT , Service support ,
--- NOTE | 2021-05-02 15:08 | RAD_ITS ---
STUDY: X-RAY - RIGHT SHOULDER REASON FOR EXAM: Female, 35 years old. SHOULDER PAIN TECHNIQUE: 4 view(s) of the shoulder. COMPARISON: None. FINDINGS: Normal glenohumeral articulation. Normal acromioclavicular joint. Normal acromion. Normal humeral head and visualized proximal humerus. The soft tissue structures are unremarkable. Normal visualized pulmonary apex. RAD/Shoulder min 2 Views IMPRESSION: Normal x-ray examination of the shoulder. Electronically Signed: Nicholas Ty MD at 16:01 EDT , Service support ,
== END ==
PROVIDERS: PCP Family Medicine; Referring Provider Family Medicine; Visit Provider Family Medicine
DX: M25.511 Pain in right shoulder (principal); M25.562 Pain in left knee
CPT/HCPCS: 73030; 73564

== ENCOUNTER 2021-06-28 15:30 | Outpatient (RCR) | payer MEDICAID, SELFPAY ==
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
== END 2021-06-28 19:00 | disposition home or self-care (01) ==
LOC: PT 15:30
PROVIDERS: PCP Family Medicine; Referring Provider Family Medicine; Visit Provider Family Medicine
DX: S16.1XXD Strain of muscle, fascia and tendon at neck level, subsequent encounter (principal); V89.2XXD Person injured in unspecified motor-vehicle accident, traffic, subsequent encounter
CPT/HCPCS: 97014; 97110; 97140; 97162; G0283

== ENCOUNTER 2021-09-05 23:19 | Emergency (ER) | payer MEDICAID, SELFPAY ==
[2021-09-05 23:20] VITALS: PULSE 100; RESP 18; TEMP 36.6; O2SAT 98; BMI 32.5
[2021-09-05 23:23] VITALS: BP 142/100
--- NOTE | 2021-09-05 23:34 | RAD_ITS ---
STUDY: X-RAY CHEST REASON FOR EXAM: Female, 36 years old patient with cough. TECHNIQUE: Single AP portable view of the chest. COMPARISON: Chest radiograph dated 01/11/2021. FINDINGS: The lungs are hyperexpanded. There are prominent bronchovascular markings in both lungs. There is no demonstrated pleural abnormality. Normal size heart. Normal mediastinum and radha. Normal visualized pulmonary arteries. Normal visualized aortic arch and descending thoracic aorta. Normal visualized thoracic spine. Normal visualized ribs, clavicles, and shoulders. There is no demonstrated abnormality of the visualized soft tissue structures of the upper abdomen. RAD/Chest 1 View (Portable) IMPRESSION: Findings suggest acute exacerbation of reactive airway disease and/or viral infection. Electronically Signed: Ana Christine MD at 0:32 EST , Service support ,
--- NOTE | 2021-09-05 23:39 | EX.ED.VIS.UR ---
HPI HPI - URI History of Present Illness Chief Complaint: Cough Informant: patient Onset/Context/Timing Onset: Days Context: Gradual Onset Timing: Continuous Current Severity: Mild Maximum Severity: Mild Associated Symptoms Associated Symptoms: Positive for Nasal Congestion, Myalgias and Productive Cough; Negative for Nausea, Vomiting and Diarrhea Narrative Narrative: 36-year-old female history of asthma and migraines. States she has had a cough since . States is productive of clear sputum. No hemoptysis. Discomfort with coughing. No vomiting or diarrhea. No hemoptysis. No fever. No history of DVT or PE. States she tested positive for Covid 2 months ago. She is a smoker. Recently finished a prescription for a Z-Micky. Prior similar symptoms: Yes Recent Illness/Hospitalization: No ROS ROS ED ROS Narrative Cough. Review of Systems ROS Unobtainable: Denies due to encephalopathy Constitutional Constitutional ED: Denies fever(s) Eyes Eyes: Denies change in vision ENT ENT ED: Reports rhinorrhea; Denies ear pain or sore throat Cardiovascular Cardiovascular: Denies chest pain Respiratory/Chest Respiratory/Chest: Reports cough; Denies dyspnea Gastrointestinal Gastrointestinal: Denies abdominal pain, diarrhea, nausea or vomiting Genitourinary Genitourinary ED: Denies dysuria or hematuria Musculoskeletal Musculoskeletal: Denies myalgias Integumentary Denies rash Neurologic Neurologic: Denies headache(s) Psychiatric Psychiatric: Denies depression Endocrine Endocrinology: Denies polyuria Hematologic/Lymphatic Hematologic/Lymphatic: Denies easy bruising Allergic/Immunologic Allergic/Immunologic ED: Denies urticaria PFSH PFSH Medical History Acute bronchitis, unspecified Anxiety and depression Asthma Fatigue Gallstones Gestational diabetes GI problem H/O gestational diabetes mellitus, not currently IBS (irritable bowel syndrome) Knee pain Severe headache Home Medications amoxicillin 500 mg PO TID #30 tab 01/28/21 [Rx Last Taken Unknown] hydrocodone-acetaminophen 1 tab PO Q6H PRN 3 Days #10 tab 01/28/21 [Rx Last Taken Unknown] naproxen 500 mg PO BID #14 tab 01/28/21 [Rx Last Taken Unknown] furosemide [Lasix] 40 mg PO DAILY #3 tab 04/04/21 [Rx Last Taken Unknown] cyclobenzaprine 10 mg PO BID PRN #10 tab 04/22/21 [Rx Last Taken Unknown] hydrocodone-acetaminophen 1 tab PO Q6H PRN 3 Days #10 tab 04/22/21 [Rx Last Taken Unknown] naproxen [Naprosyn] 500 mg PO BID PRN #20 tab 04/22/21 [Rx Last Taken Unknown] azithromycin 250 mg tablet 250 mg PO QDAY #6 tab 08/22/21 [Rx Last Taken Unknown] Allergy/AdvReac Type Severity Reaction Status Date / Time fentanyl Allergy Rash Verified 09/05/21 23:23 ketorolac tromethamine Allergy Rash Verified 09/05/21 23:23 [From Toradol] COLD MEDICATIONS AdvReac Unknown Uncoded 09/05/21 23:23 PLASTIC TAPE AdvReac Unknown Uncoded 09/05/21 23:23 Family History Grandmother Breast cancer Diabetes Thyroid disorder Grandfather Diabetes Hypertension Father Hypertension Sister Diabetes Thyroid disorder Surgical History gastric diveticulum resection H/O knee surgery H/O tubal ligation H/O: hysterectomy Hx of cholecystectomy Hx of removal of ovary S/P wrist surgery Social History Smoking Status: Current every day smoker tobacco type: cigarettes alcohol intake: never substance use type: does not use EXAM Physical Exam Narrative Exam Narrative: 36-year-old female no acute distress vital signs stable afebrile pulse ox 90% on room air no signs hypoxia. Patient does not look septic nor toxic nor dehydrated. HEENT exam unremarkable. Moist remembers. Neck nontender no lymphadenopathy. Lungs clear to auscultation bilaterally. No rales nor rhonchi no wheezing. Equal symmetrical. Heart regular rhythm no murmur. Abdomen soft nontender. Moving all 4 extremities. Nontender no edema. Neurologic exam normal. Back nontender. Const Vital Signs: 09/05/21 23:20 09/05/21 23:23 Temperature 97.9 F Temperature Source Temporal Pulse Rate 100 Respiratory Rate 18 Blood Pressure 142/100 H Blood Pressure Mean 114 Pulse Ox 98 Oxygen Delivery Method Room Air Positive well nourished, well developed and obese; Negative for cachectic or contractures General Appearance ED: well developed and NAD; Negative for cachectic, contractures, cyanotic, diaphoretic or pallor Nutritional Appearance: obese; Negative for cachectic HEENT Reports moist mucous membranes normocephalic and atraumatic; Negative for scalp tenderness Face and Sinus: Negative for sinus tenderness or facial tenderness External Ear: external ears normal Eyes PERRL and EOMs intact bilaterally General Eye ED: Negative for pale conjunctiva or scleral icterus Neck no lymphadenopathy, supple, no meningeal signs and no JVD General: Negative for anterior neck swelling or lymphadenopathy Resp normal respiratory effort and clear to auscultation bilaterally Auscultation: Negative for rales, rhonchi or wheezes Cardio S1 normal heart sound, S2 normal heart sound and no murmurs Rate: regular rate Rhythm: regular rhythm GI non-tender, non-distended and no masses Auscultation: normoactive bowel sounds Palpation: soft; Negative for tender or guarding Back/Spine no CVA tenderness and normal ROM General Back: Negative for CVA tenderness Cervical Spine: Negative for cervical spine tenderness Thoracic Spine / Upper Back: Negative for thoracic spinal tenderness Extremity normal to inspection and full ROM General Extremety ED: Negative for cyanosis or tenderness General Extremity: Negative for cyanosis Neuro oriented x3 Sensorium / Orientation: alert, oriented to person, oriented to place and oriented to time; Negative for orientation impaired, lethargic or stuporous Motor Exam: strength 5/5 throughout Psych mental status grossly normal Mood & Affect: Negative for depressed Skin General Skin Exam: Negative for jaundice or pallor Lesions: no lesions Rashes: no rashes and No rashes noted MDM MDM MDM Narrative Medical decision making narrative: 36-year-old female suspect a viral URI. Covid test and chest x-ray pending. Repeat exam patient is doing well at 12:03 AM and will be discharged home. She does not need antibiotics or any further medications. Lab Data Attestation: I reviewed the patient's lab results. Lab results narrative: Rapid Covid antigen negative. Radiography Diagnostic Testing: Chest x-ray, portable, 1 view interpreted myself shows no acute abnormality. Normal cardiac silhouette. No infiltrates. Discharge Plan Triage Chief Complaint: Cough ED Provider: Tan Bravo Dx/Rx/DC Orders Clinical Impression: Bronchitis Instructions: ED Bronchitis, No Antibiotic (Adult) Prescriptions: No Action azithromycin 250 mg tablet 250 mg PO QDAY Qty: 6 RF: 0 hydrocodone-acetaminophen 5-325 mg tablet 1 tab PO Q6H PRN (Reason: pain) 3 Days Qty: 10 RF: 0 amoxicillin 500 MG tablet 500 mg PO TID Qty: 30 RF: 0 naproxen 500 MG tablet 500 mg PO BID Qty: 14 RF: 0 furosemide [Lasix] 40 mg tablet 40 mg PO DAILY Qty: 3 RF: 0 hydrocodone-acetaminophen 5-325 mg tablet 1 tab PO Q6H PRN (Reason: pain) 3 Days Qty: 10 RF: 0 cyclobenzaprine 10 mg tablet 10 mg PO BID PRN (Reason: muscle spasm) Qty: 10 RF: 0 naproxen [Naprosyn] 500 mg tablet 500 mg PO BID PRN (Reason: pain) Qty: 20 RF: 0 Primary Care Provider: Valentino Castellanos Referrals: Valentino Castellanos MD [Primary Care Provider] - 1 Week if not improving Activity Restrictions/Additional Instructions: Plenty of fluids and rest. Motrin and Tylenol for body aches and pain. Follow-up with your doctor if not improving. Disposition Disposition: Home, Self Care
--- NOTE | 2021-09-06 00:10 | ED.RN ---
patient discharged 09/06/21 at 0010. Unable to put time and date for discharge plan.
== END 2021-09-06 00:10 | disposition home or self-care (01) ==
LOC: ED 09-06 00:14
PROVIDERS: Emergency Provider Emergency Medicine; PCP Family Medicine
DX: J40 Bronchitis, not specified as acute or chronic (principal); F17.210 Nicotine dependence, cigarettes, uncomplicated; E66.9 Obesity, unspecified; Z68.32 Body mass index [BMI] 32.0-32.9, adult; Z86.16 Personal history of COVID-19
CPT/HCPCS: 71045; 87426; 99282

== ENCOUNTER 2021-09-14 02:52 | Emergency (ER) | payer MEDICAID, SELFPAY ==
[2021-09-14 02:53] VITALS: BP 114/67; PULSE 95; RESP 101; TEMP 36.7; O2SAT 95; BMI 34.7
[2021-09-14 02:57] VITALS: BP 114/67; PULSE 104; RESP 18; TEMP 36.9; O2SAT 98
[2021-09-14] MEDS: Acetaminophen 500 MG Tablet 1000 MG PO (03:24)
[2021-09-14] MEDS: predniSONE 20 MG Tablet 60 MG PO (03:24)
--- NOTE | 2021-09-14 03:52 | EX.ED.DYSGE1 ---
HPI History of Present Illness Chief Complaint: General Illness Informant: patient Narrative Narrative: Presents for reevaluation worsening myalgia. Report intermittent cough for last 2 weeks. No fevers. No headaches. No loss of taste or smell. A week ago had vomiting and diarrhea. Reports positive home Covid test 3 months ago symptoms resolved from there. She is nonvaccinated. Recent new exposure from multiple members from family and at work. Covid testing 2 weeks ago at urgent care negative. She seen a week ago in ED diagnosed with bronchitis with a additional rapid test that was negative. She states her myalgias worsening and symptoms worsen her first Covid infection 3 months ago. Occasional wheezing history of asthma. Denies any exertional dyspnea. Reports headache. Prior similar symptoms: Yes PFSH PFSH Medical History Acute bronchitis, unspecified Anxiety and depression Asthma Fatigue Gallstones Gestational diabetes GI problem H/O gestational diabetes mellitus, not currently IBS (irritable bowel syndrome) Knee pain Severe headache Home Medications cyclobenzaprine 10 mg PO BID PRN #10 tab 04/22/21 [Rx Last Taken Unknown] prednisone 60 mg PO DAILY #12 tab 09/14/21 [Rx Last Taken Unknown] Allergy/AdvReac Type Severity Reaction Status Date / Time fentanyl Allergy Rash Verified 09/05/21 23:23 ketorolac tromethamine Allergy Rash Verified 09/05/21 23:23 [From Toradol] COLD MEDICATIONS AdvReac Unknown Uncoded 09/05/21 23:23 PLASTIC TAPE AdvReac Unknown Uncoded 09/05/21 23:23 Family History Grandmother Breast cancer Diabetes Thyroid disorder Grandfather Diabetes Hypertension Father Hypertension Sister Diabetes Thyroid disorder Surgical History gastric diveticulum resection H/O knee surgery H/O tubal ligation H/O: hysterectomy Hx of cholecystectomy Hx of removal of ovary S/P wrist surgery Social History Smoking Status: Current every day smoker tobacco type: cigarettes alcohol intake: never substance use type: does not use ROS ROS ED Constitutional Constitutional ED: Denies chills, fever(s) or sweats Eyes Eyes: Denies change in vision ENT ENT ED: Denies dysphagia or sore throat Cardiovascular Cardiovascular: Denies chest pain, leg edema, palpitations or racing heartbeat Respiratory/Chest Respiratory/Chest: Reports cough; Denies dyspnea or dyspnea on exertion Gastrointestinal Gastrointestinal: Denies abdominal pain, diarrhea, nausea or vomiting Genitourinary Genitourinary ED: Denies dysuria, hematuria or urinary frequency Musculoskeletal Musculoskeletal: Reports myalgias; Denies back pain, extremity pain or neck pain Integumentary Denies rash or wounds Neurologic Neurologic: Reports headache(s); Denies paresthesias or weakness EXAM Physical Exam Const Vital Signs: 09/14/21 02:53 09/14/21 02:57 Temperature 98.0 F 98.5 F Temperature Source Temporal Temporal Pulse Rate 95 104 H Respiratory Rate 101 H 18 Blood Pressure 114/67 114/67 Blood Pressure Mean 82 82 Pulse Ox 95 98 Oxygen Delivery Method Room Air Room Air Positive well nourished and well developed General Appearance ED: well developed and NAD HEENT Reports moist mucous membranes normocephalic and atraumatic Eyes PERRL, EOMs intact bilaterally and conjunctivae normal General Eye ED: Yes normal appearance of both eyes Neck no lymphadenopathy and supple Neck Narrative: No meningismus General: Negative for tenderness Chest Wall Chest: Negative for tenderness Resp normal respiratory effort and normal air movement Effort and Inspection: symmetric chest movement; Negative for respiratory distress Cardio regular rate, regular rhythm and no murmurs Peripheral Pulses: pulses 2+ throughout GI normal to inspection, nondistended, normoactive bowel sounds and non-tender Palpation: Negative for guarding or rebound tenderness present Back/Spine no CVA tenderness and no thoracic nor lumbar tenderness Extremity normal to inspection General Extremety ED: Negative for edema or tenderness General Extremity: Negative for edema Neuro oriented x3 and no sensory deficits noted Sensorium / Orientation: awake and alert Skin no rashes or lesions noted and no wounds MDM MDM MDM Narrative Medical decision making narrative: Vital signs stable patient nontoxic. Multiple new exposures myalgias headaches and cough. Pulse ox 98%. From her history reported rapid antigen test negative x2 discussed possibility of false negatives. She is no active wheezing on exam however reports wheezing at home. Will start prednisone due to asthma. Discussed with patient we will send out a PCR testing for Covid for further evaluation. She will continue oral fluids. Is given Tylenol for myalgias. She will continue ibuprofen and Tylenol as needed for her myalgias. States she does have a pulse oximeter at home that needs batteries. Discussed replacing this and monitoring her pulse ox. Return precautions discussed. Patient is being discharged under pandemic conditions under declared global, national and state disaster activation, with limited medical resources. Patient and community understands this. Results discussed in layman's terms to the patient satisfaction. All questions answered in layman's terms. Patient understands importance of follow-up care as directed. Patient has been instructed to return to the ED immediately if new symptoms, problems, or questions occur. We mutually agree with the plan of disposition. The patient understand that they may call or return with any questions or concerns at any time. Discharge Plan Triage Chief Complaint: General Illness ED Provider: Graham Busby Dx/Rx/DC Orders Clinical Impression: Viral syndrome, Asthma, Suspected 2019-nCoV infection Instructions: Coronavirus Disease 2019 (COVID-19): Overview, Asthma Prescriptions: New prednisone 20 MG tablet 60 mg PO DAILY Qty: 12 RF: 0 No Action cyclobenzaprine 10 mg tablet 10 mg PO BID PRN (Reason: muscle spasm) Qty: 10 RF: 0 Primary Care Provider: Valentino Castellanos Referrals: Valentino Castellanos MD [Primary Care Provider] - 1 Week Activity Restrictions/Additional Instructions: PCR Covid testing sent out and pending. Use steroids as prescribed for your asthma. Use pulse oximeter monitoring oxygen status. Return if oxygen drops below 88%. Disposition Disposition: Home, Self Care Discharge Date/Time: 09/14/21 04:01
== END 2021-09-14 04:01 | disposition home or self-care (01) ==
PROVIDERS: Emergency Provider Emergency Medicine; PCP Family Medicine; Visit Provider Emergency Medicine
DX: B34.9 Viral infection, unspecified (principal); J45.909 Unspecified asthma, uncomplicated; M79.10 Myalgia, unspecified site; F17.210 Nicotine dependence, cigarettes, uncomplicated; Z20.822 Contact with and (suspected) exposure to COVID-19; Z86.16 Personal history of COVID-19
CPT/HCPCS: U0003; 87635; 99283; U0005

== ENCOUNTER 2021-10-05 14:23 | Outpatient (CLI) | payer MEDICAID, SELFPAY ==
[2021-10-05 17:51] LABS: Absolute Lymphocyte Count 2.09 X10^3/uL (0.83-4.51); Absolute Neutrophil Count 3.8 X10^3/uL (2.0-7.7); Basophil# 0.05 X10^3/uL; Basophil% 0.8 % (0-1); Eosinophil# 0.26 X10^3/uL; Hematocrit 41.6 % (37-47); Hemoglobin 14.2 g/dL (12.0-15.0); Lymphocyte # 2.09 X10^3/ul (0.83-4.51); Lymphocyte % 32.1 % (19-41); Mean Corp Hgb Conc 34.1 g/dL (32-36); Mean Corpuscular Hgb 29.9 pg (27.0-32.0); Mean Corpuscular Volume 87.6 fL (81-99); Mean Platelet Vol. 10.2 fl (6.2-12.0); Monocyte# 0.32 X10^3/uL; Monocyte% 4.9 % (0-10); NRBC Flagged by Analyzer 0 % (0-5); Neutrophil # 3.77 X10^3/uL (2.7-7.7); Neutrophil % 57.9 % (47-70); Platelet Count 308 K/mm3 (150-450); RBC Distribution Width CV 12.8 % (11.6-14.6); Red Blood Count 4.75 M/mm3 (4.2-5.4); White Blood Count 6.5 K/mm3 (4.4-11.0)
[2021-10-05 18:03] LABS: Erythrocyte Sedimentation Rate 26 mm/hr (0-30)
[2021-10-05 18:06] LABS: Vitamin B12 353 pg/mL (211-911); Vitamin D,25 Hydroxy 18.1 ng/mL
[2021-10-06 07:19] LABS: AST(SGOT) 40 U/L (15-37); Alanine Aminotransfer ALT/SGPT 84 U/L (13-56); Albumin, Serum 3.8 g/dL (3.2-5.0); Alkaline Phosphatase 70 U/L (45-117); Anion Gap 8 (5-15); BUN 9 mg/dL (7-18); BUN/Creat Ratio 10.9 RATIO (10-20); Calcium,Total 9.3 mg/dL (8.5-10.1); Chloride 106 mmol/L (98-107); Creatinine, Serum 0.83 mg/dL (0.55-1.02); EST Glomerular Filtration Rate 83 mL/min (>60); Est Glom Filt Rate - Afr Amer 100 mL/min (>60); Ferritin 321 ng/mL (8-252); Free T3 3.1 pg/mL (2.18-3.98); Globulin 3.8 g/dL (2.2-4.2); Glucose 135 mg/dL (74-106); Iron 73 ug/dL (50-170); Potassium 3.5 mmol/L (3.5-5.1); Protein, Total 7.6 g/dL (6.4-8.2); Sodium Level 140 mmol/L (136-145); T4 Free Direct 0.95 ng/dL (0.76-1.46); Thyroid Stim Hormone (TSH) 2.36 uIU/mL (0.358-3.74)
[2021-10-07 17:55] LABS: Thyroid Peroxidase AB 136 IU/mL (0-34)
== END 2021-10-05 23:59 | disposition short-term general hospital (02) ==
LOC: MFPLAB 14:29
PROVIDERS: PCP Family Medicine; Referring Provider Family Medicine; Visit Provider Family Medicine
DX: R10.13 Epigastric pain (principal); R53.83 Other fatigue; E03.9 Hypothyroidism, unspecified
CPT/HCPCS: 36415; 80053; 82306; 82607; 82728; 83540; 84439; 84443; 84481; 85025; 85652; 86376

== ENCOUNTER 2021-11-10 20:39 | Outpatient (CLI) | payer MEDICAID, SELFPAY | END 2021-11-10 23:59 | disposition home or self-care (01) | PROVIDERS: PCP Family Medicine; Visit Provider Family Medicine | DX: G47.33 Obstructive sleep apnea (adult) (pediatric) (principal) | CPT/HCPCS: 95811 ==

== ENCOUNTER 2021-12-20 19:06 | Emergency (ER) | payer MEDICAID, SELFPAY ==
[2021-12-20 19:08] VITALS: BP 126/103; PULSE 111; RESP 24; TEMP 36; O2SAT 95; BMI 36.1
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
[2021-12-20] MEDS: cycloBENZAPRine HCl 10 MG Tablet PO (20:31)
[2021-12-20] MEDS: oxyCODONE 5 MG Tablet PO (20:31)
[2021-12-20 20:33] VITALS: BP 148/79; PULSE 82; RESP 15; O2SAT 97
== END 2021-12-20 20:33 | disposition home or self-care (01) ==
PROVIDERS: Emergency Provider Emergency Medicine; PCP Family Medicine; Visit Provider Emergency Medicine
DX: S29.012D Strain of muscle and tendon of back wall of thorax, subsequent encounter (principal); V99.XXXD Unspecified transport accident, subsequent encounter; F17.210 Nicotine dependence, cigarettes, uncomplicated
CPT/HCPCS: 99283

== ENCOUNTER 2022-01-03 18:53 | Emergency (ER) | payer MEDICAID, SELFPAY ==
[2022-01-03 18:54] VITALS: BP 116/99; PULSE 73; RESP 18; TEMP 35.9; O2SAT 94; BMI 36.1
--- NOTE | 2022-01-03 19:53 | CT_ITS ---
STUDY: CT ABDOMEN AND PELVIS WITH CONTRAST REASON FOR EXAM: Female, 36 years old right lower quadrant abdominal pain RADIATION DOSAGE (If Supplied By Facility): CTDIvol = ( 16.95 ) mGy, DLP = ( 1292.65 ) mGycm TECHNIQUE: Transaxial images were obtained from the dome of the diaphragm to the symphysis pubis without oral contrast. IV 100mL Isovue-300 was administered. Sagittal and coronal images were reconstructed. Individualized dose optimization techniques were used for this CT. COMPARISON: 01/09/2021 FINDINGS: The visualized lung bases are unremarkable. The visualized portions of the heart are within normal limits. Normal liver. There is non-visualization of the gallbladder, which may be secondary to either contraction or a prior cholecystectomy. Normal spleen. Normal pancreas. Normal bilateral adrenal glands. Normal right kidney. Normal left kidney. Normal visualized stomach. Normal small intestine. Normal colon. The appendix is visualized and appears normal. Normal abdominal aorta. Normal inferior vena cava. Normal retroperitoneum. Normal urinary bladder. Normal abdominal wall. Normal osseous structures. CT/Abdomen/Pelvis W IV Cont ONLY IMPRESSION: No acute intra-abdominal process. Electronically Signed: Evangelina Myers MD at 20:38 EDT ,
--- NOTE | 2022-01-03 19:54 | ED.VIS.GI ---
HPI HPI - GI History of Present Illness Chief Complaint: Abd Pain Informant: patient Abdominal Pain/Flank Pain Onset: Today and Hours Context: Gradual Onset Timing: Continuous Quality: Aching Location: RLQ Current Severity: Mild Maximum Severity: Moderate Worsened by: Nothing Relieved by: Nothing Nausea/Vomiting/Emesis GI Symptom: Negative for Nausea and Vomiting Diarrhea/Melena/Hematochezia GI Symptom: Negative for Diarrhea, Melena and Hematochezia Associated Symptoms Associated Symptoms: Negative for Dysuria, Frequency, Hematuria and Urgency Narrative Narrative: 36-year-old female history of prior hysterectomy with ovaries removed and cholecystectomy. Also a gastric diverticulum surgery. Patient states she has had right lower quadrant abdominal pain since early this morning. Denies nausea vomiting diarrhea. Denies fever chills. Denies dysuria nor hematuria. She had a prior kidney stone and states that felt differently. She does have decreased appetite. Prior similar symptoms: No Recent Illness/Hospitalization: No PFSH PFSH Medical History Acute bronchitis, unspecified Anxiety and depression Asthma Fatigue Gallstones Gestational diabetes GI problem H/O gestational diabetes mellitus, not currently IBS (irritable bowel syndrome) Knee pain Severe headache Home Medications cyclobenzaprine 10 mg PO BID PRN #10 tab 04/22/21 [Rx Last Taken Unknown] cholecalciferol (vitamin D3) 250 mcg (10,000 unit) capsule 250 mcg PO QWEEK 11/24/21 [History Last Taken Unknown] cyanocobalamin (vitamin B-12) 1,000 mcg capsule 1,000 mcg PO DAILY 11/24/21 [History Last Taken Unknown] cyclobenzaprine 10 mg PO BID PRN #10 tab 12/20/21 [Rx Last Taken Unknown] naproxen 500 mg PO BID #14 tab 12/20/21 [Rx Last Taken Unknown] Allergy/AdvReac Type Severity Reaction Status Date / Time fentanyl Allergy Rash Verified 01/03/22 18:57 ketorolac tromethamine Allergy Rash Verified 01/03/22 18:57 [From Toradol] COLD MEDICATIONS AdvReac Unknown Uncoded 01/03/22 18:57 PLASTIC TAPE AdvReac Unknown Uncoded 01/03/22 18:57 Family History Grandmother Breast cancer Diabetes Thyroid disorder Grandfather Diabetes Hypertension Father Hypertension Sister Diabetes Thyroid disorder Surgical History gastric diveticulum resection H/O knee surgery H/O tubal ligation H/O: hysterectomy Hx of cholecystectomy Hx of removal of ovary S/P wrist surgery Social History Smoking Status: Current every day smoker tobacco type: cigarettes alcohol intake: never substance use type: does not use ROS ROS ED ROS Narrative Abdominal pain. Review of Systems ROS Unobtainable: Denies due to encephalopathy Constitutional Constitutional ED: Denies fever(s) ENT ENT ED: Denies ear pain or rhinorrhea Cardiovascular Cardiovascular: Denies chest pain or palpitations Respiratory/Chest Respiratory/Chest: Denies cough, dyspnea or sputum Gastrointestinal Gastrointestinal: Reports abdominal pain; Denies constipation, diarrhea, melena, nausea or vomiting Genitourinary Genitourinary ED: Denies dysuria or hematuria Musculoskeletal Musculoskeletal: Denies myalgias Integumentary Denies rash Neurologic Neurologic: Denies headache(s) Psychiatric Psychiatric: Denies depression Endocrine Endocrinology: Denies polyuria Hematologic/Lymphatic Hematologic/Lymphatic: Denies easy bruising Allergic/Immunologic Allergic/Immunologic ED: Denies urticaria EXAM Physical Exam Narrative Exam Narrative: 36-year-old female no acute distress. Vital signs stable afebrile. H EENT exam unremarkable. Lungs clear. Heart regular rate and rhythm. Abdomen soft. Nondistended. Normal bowel sounds. No peritoneal signs. Tender right lower quadrant only. No hernia no mass. No signs of obstruction. No trauma. Back nontender. Otherwise exam unremarkable. Const Vital Signs: 01/03/22 18:54 01/03/22 20:32 Temperature 96.7 F L Temperature Source Temporal Pulse Rate 73 83 Respiratory Rate 18 18 Blood Pressure 116/99 H 126/90 H Blood Pressure Mean 104 102 Pulse Ox 94 98 Oxygen Delivery Method Room Air Positive well nourished, well developed and obese; Negative for cachectic, contractures or unkempt General Appearance ED: well developed and NAD; Negative for unkempt, cachectic, contractures or pallor Nutritional Appearance: obese; Negative for cachectic HEENT Reports moist mucous membranes normocephalic and atraumatic; Negative for trauma or tenderness Eyes PERRL and EOMs intact bilaterally General Eye ED: Negative for pale conjunctiva or scleral icterus Neck no lymphadenopathy, supple and no JVD General: Negative for tenderness Resp normal respiratory effort and clear to auscultation bilaterally Auscultation: Negative for rales, rhonchi or wheezes Cardio regular rate, regular rhythm, S1 normal heart sound, S2 normal heart sound and no murmurs GI non-distended and no masses; Negative for non-tender Inspection: Negative for abdominal distention Auscultation: normoactive bowel sounds; Negative for hyperactive bowel sounds Palpation: soft, tender and rebound tenderness present; Negative for guarding or rigid Back/Spine no CVA tenderness General Back: Negative for CVA tenderness Cervical Spine: Negative for cervical spine tenderness Thoracic Spine / Upper Back: Negative for thoracic spinal tenderness Extremity full ROM General Extremety ED: Negative for edema or tenderness General Extremity: Negative for edema Neuro moves all extremities Sensorium / Orientation: alert, oriented to person, oriented to place and oriented to time; Negative for orientation impaired, confused, lethargic or stuporous Motor Exam: strength 5/5 throughout Psych mental status grossly normal and thought process normal Appearance: Negative for unkempt Attitude: No agitated Mood & Affect: Negative for depressed or tearful Skin no wounds General Skin Exam: Negative for jaundice or pallor Lesions: no lesions Rashes: no rashes MDM MDM MDM Narrative Medical decision making narrative: 36-year-old female complaint right lower quadrant abdominal pain. CAT scan labs pending. She will be treated with IV fluids and morphine. Repeat exam patient is doing well at 9:30 PM. Abdomen is benign. Went over all of her normal test results and her CAT scan. She will be discharged to home. Follow-up with her primary care physician if not improving return if a lot worse. Lab Data Attestation: I reviewed the patient's lab results. Lab results narrative: CBC normal white count of 7. H&H of 14 and 42. Electrolytes unremarkable gap of 6. Normal BUN and creatinine. Normal liver enzymes. Normal lipase at 157. UA negative. No nitrates nor white or red cells. CAT scan read as radiologist as normal. Reviewed by me. Labs: Laboratory Results - last 24 hr 01/03/22 01/03/22 01/03/22 20:00 20:00 20:00 WBC 7.7 RBC 4.87 Hgb 14.8 Hct 42.1 MCV 86.4 MCH 30.4 MCHC 35.2 RDW Std Deviation 39.9 RDW Coeff of Anushka 12.7 Plt Count 289 MPV 9.8 Immature Gran % (Auto) 0.300 Neut % (Auto) 54.7 Lymph % (Auto) 33.5 [place] % (Auto) 6.2 Eos % (Auto) 4.7 Baso % (Auto) 0.6 Absolute Neuts (auto) 4.2 Absolute Lymphs (auto) 2.58 Nucleated RBC % 0 Sodium 140 Potassium 3.6 Chloride 106 Carbon Dioxide 28.0 Anion Gap 6 BUN 8 Creatinine 0.78 Estim Creat Clear Calc 100.58 Est GFR (MDRD) Af Amer 107 Est GFR (MDRD) Non-Af 89 BUN/Creatinine Ratio 10.3 Glucose 106 Calcium 9.3 Total Bilirubin 0.30 AST 20 ALT 64 H Alkaline Phosphatase 69 Total Protein 7.7 Albumin 3.9 Globulin 3.8 Albumin/Globulin Ratio 1.0 Lipase 157 Urine Color Yellow Urine Clarity Clear Urine pH 6.0 Ur Specific [place] 1.015 Urine Protein Negative Urine Glucose (UA) Normal Urine Ketones Negative Urine Occult Blood Negative Urine Nitrite Negative Urine Bilirubin Negative Urine Urobilinogen Normal Ur Leukocyte Esterase Negative Urine RBC 0 SEEN Urine WBC 0-5 SEEN Ur Squamous Epith Cells 0-5 SEEN Urine Bacteria 1+ Urine Mucus 0 SEEN Radiography Diagnostic Testing: Clinical Impression(s) from Imaging Studies Abdomen/Pelvis CT 01/03/22 19:53 IMPRESSION: No acute intra-abdominal process. Electronically Signed: Evangelina Myers MD at 20:38 EDT Reading Location ID and State: [facility] / [place] Tel , Service support , Discharge Plan Triage Chief Complaint: Abd Pain ED Provider: Tan Bravo Dx/Rx/DC Orders Clinical Impression: Abdominal pain Instructions: Abdominal Pain Prescriptions: No Action cholecalciferol (vitamin D3) 250 mcg (10,000 unit) capsule 250 mcg PO QWEEK RF: 0 cyanocobalamin (vitamin B-12) 1,000 mcg capsule 1,000 mcg PO DAILY RF: 0 cyclobenzaprine 10 mg tablet 10 mg PO BID PRN (Reason: muscle spasm) Qty: 10 RF: 0 cyclobenzaprine 10 mg tablet 10 mg PO BID PRN (Reason: muscle spasm) Qty: 10 RF: 0 naproxen 500 MG tablet 500 mg PO BID Qty: 14 RF: 0 Primary Care Provider: Valentino Castellanos Referrals: Valentino Castellanos MD [Primary Care Provider] - 3-5 Days if not improving Activity Restrictions/Additional Instructions: All your labs and CAT scan were normal. Your appendix was seen and was normal. There is no specific cause for your pain. Motrin and Tylenol for pain. Follow-up with your doctor if not improving. Disposition Disposition: Home, Self Care
[2022-01-03] MEDS: morphine 8 MG/ML Syringe IV (20:08)
[2022-01-03] MEDS: Ondansetron 4 MG/2 ML Vial IV (20:08)
[2022-01-03 20:11] LABS: Mucous, Urine 0 SEEN /hpf (<or=2+); Red Blood Cells-Urine 0 SEEN /hpf (0-5)
[2022-01-03 20:14] LABS: Absolute Lymphocyte Count 2.58 X10^3/uL (0.83-4.51); Absolute Neutrophil Count 4.2 X10^3/uL (2.0-7.7); Basophil# 0.05 X10^3/uL; Basophil% 0.6 % (0-1); Color, Urine Yellow (Yellow); Eosinophil# 0.36 X10^3/uL; Eosinophils% 4.7 % (0-5); Glucose, Dipstick Normal (Normal); Hematocrit 42.1 % (37-47); Hemoglobin 14.8 g/dL (12.0-15.0); Ketone-Dipstick Negative (Negative); Leukocyte Esterase-Dipstick Negative /ul (Negative); Lymphocyte # 2.58 X10^3/ul (0.83-4.51); Lymphocyte % 33.5 % (19-41); Mean Corp Hgb Conc 35.2 g/dL (32-36); Mean Corpuscular Hgb 30.4 pg (27.0-32.0); Mean Corpuscular Volume 86.4 fL (81-99); Mean Platelet Vol. 9.8 fl (6.2-12.0); Monocyte# 0.48 X10^3/uL; Monocyte% 6.2 % (0-10); NRBC Flagged by Analyzer 0 % (0-5); Neutrophil # 4.21 X10^3/uL (2.7-7.7); Neutrophil % 54.7 % (47-70); Nitrite-Dipstick Negative (Negative); Occult Blood-Urine Negative /ul (Negative); Platelet Count 289 K/mm3 (150-450); Protein-Dipstick Negative (Negative); RBC Distribution Width CV 12.7 % (11.6-14.6); RBC Distribution Width SD 39.9 fl (35.1-43.9); Red Blood Count 4.87 M/mm3 (4.2-5.4); Specific Gravity, Urine 1.015 (1.002-1.030); Urine Bilirubin Dipstick Negative (Negative); Urine Clarity Clear (Clear); Urine Urobilinogen Normal (Normal); White Blood Count 7.7 K/mm3 (4.4-11.0)
[2022-01-03 20:28] LABS: Bacteria 1+ /hpf (None Seen); Squamous Epithelial Cells - UA 0-5 SEEN /hpf (5-10); White Blood Cells 0-5 SEEN /hpf (0-5)
[2022-01-03 20:30] LABS: AST(SGOT) 20 U/L (15-37); Alanine Aminotransfer ALT/SGPT 64 U/L (13-56); Albumin, Serum 3.9 g/dL (3.2-5.0); Alkaline Phosphatase 69 U/L (45-117); Anion Gap 6 (5-15); BUN 8 mg/dL (7-18); BUN/Creat Ratio 10.3 RATIO (10-20); Calcium,Total 9.3 mg/dL (8.5-10.1); Chloride 106 mmol/L (98-107); Creatinine, Serum 0.78 mg/dL (0.55-1.02); EST Glomerular Filtration Rate 89 mL/min (>60); Est Glom Filt Rate - Afr Amer 107 mL/min (>60); Estimated Creatinine Clearance 100.58 ml/min; Globulin 3.8 g/dL (2.2-4.2); Glucose 106 mg/dL (74-106); Lipase 157 U/L (73-393); Potassium 3.6 mmol/L (3.5-5.1); Protein, Total 7.7 g/dL (6.4-8.2); Sodium Level 140 mmol/L (136-145)
[2022-01-03 20:32] VITALS: BP 126/90; PULSE 83; RESP 18; O2SAT 98
[2022-01-03 21:39] VITALS: BP 149/100; PULSE 81; RESP 19; O2SAT 94
== END 2022-01-03 21:40 | disposition home or self-care (01) ==
PROVIDERS: Emergency Provider Emergency Medicine; PCP Family Medicine; Visit Provider Emergency Medicine
DX: R10.31 Right lower quadrant pain (principal); E66.9 Obesity, unspecified; F17.210 Nicotine dependence, cigarettes, uncomplicated; Z68.36 Body mass index [BMI] 36.0-36.9, adult; Z90.49 Acquired absence of other specified parts of digestive tract; Z90.710 Acquired absence of both cervix and uterus
CPT/HCPCS: 74177; 80053; 81001; 83690; 85025; 96374; 96375; 99284; J7050; Q9967; A4216; J2405

== ENCOUNTER 2022-02-22 18:50 | Emergency (ER) | payer MEDICAID, SELFPAY ==
[2022-02-22 18:52] VITALS: BP 122/91; PULSE 103; RESP 18; TEMP 36.8; O2SAT 97; BMI 33.4
--- NOTE | 2022-02-22 19:00 | RAD_ITS ---
STUDY: X-RAY - LEFT KNEE REASON FOR EXAM: Female, 36 years old. Pain after fall TECHNIQUE: Four view(s) of the knee. COMPARISON: 05/02/2021 FINDINGS: Please see the impression. RAD/Knee 4 or More Views IMPRESSION: No acute fracture or dislocation in the left knee. No significant joint effusion. No radiopaque foreign body. Electronically Signed: Samir Rodney MD at 19:18 EDT ,
--- NOTE | 2022-02-22 20:04 | ED.RN ---
pt tired of waiting to be seen,lwbs
== END 2022-02-22 20:04 | disposition left against medical advice (07) ==
LOC: ED 20:06
PROVIDERS: PCP Family Medicine
DX: Z04.3 Encounter for examination and observation following other accident (principal); Z53.21 Procedure and treatment not carried out due to patient leaving prior to being seen by health care provider
CPT/HCPCS: 73564

== ENCOUNTER 2022-04-14 22:19 | Emergency (ER) | payer MEDICAID, SELFPAY ==
[2022-04-14 22:20] VITALS: BP 138/102; PULSE 104; RESP 15; TEMP 36.4; O2SAT 98; BMI 36.8
--- NOTE | 2022-04-14 22:30 | RAD_ITS ---
STUDY: X-RAY - RIGHT ANKLE REASON FOR EXAM: Female, 36 years old. pain TECHNIQUE: 3 view(s) of the ankle. COMPARISON: None. FINDINGS: Normal visualized distal tibia and fibula. Normal medial and lateral malleoli. Normal tibiotalar articulation and ankle mortise. Normal visualized talus and calcaneus. The visualized subtalar, talonavicular, calcaneocuboid and tarsal articulations are normal. The soft tissue structures are unremarkable. RAD/Ankle min 3 Views IMPRESSION: Normal x-ray examination of the ankle. Electronically Signed: Juanjose Chacon DO at 23:03 EDT ,
--- NOTE | 2022-04-14 22:30 | ED.VIS.LOWEX ---
HPI History of Present Illness Chief Complaint: Lower Extremity Injury Informant: patient Narrative Narrative: 36-year-old female arriving to the emergency department with medial right ankle pain. She states that about 12 hours ago her 55 pound dog ran into the kitchen and with its bony head hit her in the ankle. She states that her pain is continued to worsen throughout the day and is now burning in nature. [facility] Medical History Acute bronchitis, unspecified Anxiety and depression Asthma Fatigue Gallstones Gestational diabetes GI problem H/O gestational diabetes mellitus, not currently IBS (irritable bowel syndrome) Knee pain Severe headache Home Medications cyclobenzaprine 10 mg tablet 10 mg PO BID PRN muscle spasm #10 tabs 04/22/21 [Rx Last Taken Unknown] cholecalciferol (vitamin D3) 250 mcg (10,000 unit) capsule 250 mcg PO QWEEK 11/24/21 [History Last Taken Unknown] cyanocobalamin (vitamin B-12) 1,000 mcg capsule 1,000 mcg PO DAILY 11/24/21 [History Last Taken Unknown] cyclobenzaprine 10 mg tablet 10 mg PO BID PRN muscle spasm #10 tabs 12/20/21 [Rx Last Taken Unknown] naproxen 500 mg tablet 500 mg PO BID #14 tabs 12/20/21 [Rx Last Taken Unknown] Allergy/AdvReac Type Severity Reaction Status Date / Time fentanyl Allergy Rash Verified 04/14/22 22:20 ketorolac tromethamine Allergy Rash Verified 04/14/22 22:20 [From Toradol] COLD MEDICATIONS AdvReac Unknown Uncoded 04/14/22 22:20 PLASTIC TAPE AdvReac Unknown Uncoded 04/14/22 22:20 Family History Grandmother Breast cancer Diabetes Thyroid disorder Grandfather Diabetes Hypertension Father Hypertension Sister Diabetes Thyroid disorder Surgical History gastric diveticulum resection H/O knee surgery H/O tubal ligation H/O: hysterectomy Hx of cholecystectomy Hx of removal of ovary S/P wrist surgery Social History Smoking Status: Current every day smoker tobacco type: cigarettes alcohol intake: never substance use type: does not use ROS ROS ED Constitutional Constitutional ED: Denies chills or weight loss Eyes Eyes: Denies change in vision or diplopia ENT ENT ED: Denies ear pain, rhinorrhea or sore throat Cardiovascular Cardiovascular: Denies chest pain, orthopnea, palpitations or racing heartbeat Respiratory/Chest Respiratory/Chest: Denies cough, dyspnea or orthopnea Gastrointestinal Gastrointestinal: Denies abdominal pain, diarrhea, nausea or vomiting Genitourinary Genitourinary ED: Denies dysuria, hematuria or urinary frequency Musculoskeletal Musculoskeletal: Reports other Details: See HPI ; Denies arthralgias or myalgias Integumentary Denies abscess or rash Neurologic Neurologic: Denies headache(s) or weakness Psychiatric Psychiatric: Denies anxiety, depression, suicidal ideation or suicidal thoughts Endocrine Endocrinology: Denies polydipsia, polyphagia or polyuria Allergic/Immunologic Allergic/Immunologic ED: Denies mouth swelling, tongue swelling or urticaria EXAM Physical Exam Const Vital Signs: 04/14/22 22:20 Temperature 97.5 F L Temperature Source Temporal Pulse Rate 104 H Respiratory Rate 15 Blood Pressure 138/102 H Blood Pressure Mean 114 Pulse Ox 98 Oxygen Delivery Method Room Air Positive well nourished and well developed General Appearance ED: well developed HEENT Reports normocephalic, head/scalp atraumatic and moist mucous membranes Eyes PERRL and EOMs intact bilaterally Neck no lymphadenopathy, supple and no JVD Resp normal respiratory effort and clear to auscultation bilaterally Cardio regular rate, regular rhythm and no murmurs GI normal to inspection, nondistended, normoactive bowel sounds and non-tender Palpation: soft Back/Spine no CVA tenderness and normal ROM Extremity Extremity Narrative: Patient complains of tenderness to palpation over the medial malleolus of the right ankle. Neurovascular intact. General Extremety ED: Negative for edema General Extremity: Negative for edema Neuro oriented x3 and CN's II-XII intact bilaterally Sensorium / Orientation: alert Motor Exam: strength 5/5 throughout Psych mental status grossly normal Mood & Affect: Negative for depressed or tearful Skin no rashes or lesions noted and no wounds MDM MDM MDM Narrative Medical decision making narrative: This isX-rays of the right ankle negative for fracture. Contusion recommend Tylenol Motrin ice follow-up as needed Discharge Plan Triage Chief Complaint: Lower Extremity Injury ED Provider: Héctor Byrnes Dx/Rx/DC Orders Clinical Impression: Contusion of ankle, right, Acute right ankle pain Instructions: Bone Contusion Prescriptions: No Action cholecalciferol (vitamin D3) 250 mcg (10,000 unit) capsule 250 mcg PO QWEEK cyanocobalamin (vitamin B-12) 1,000 mcg capsule 1,000 mcg PO DAILY cyclobenzaprine 10 mg tablet 10 mg PO BID PRN (Reason: muscle spasm) Qty: 10 0RF cyclobenzaprine 10 mg tablet 10 mg PO BID PRN (Reason: muscle spasm) Qty: 10 0RF naproxen 500 MG tablet 500 mg PO BID Qty: 14 0RF Primary Care Provider: Valentino Castellanos Referrals: Valentino Castellanos MD [Primary Care Provider] - 10-14 Days if not better Disposition Disposition: Home, Self Care
== END 2022-04-14 22:56 | disposition home or self-care (01) ==
LOC: ED 22:41
PROVIDERS: Emergency Provider Emergency Medicine; PCP Family Medicine; Visit Provider Emergency Medicine
DX: S90.01XA Contusion of right ankle, initial encounter (principal); W54.1XXA Struck by dog, initial encounter; Y92.000 Kitchen of unspecified non-institutional (private) residence as the place of occurrence of the external cause; F17.210 Nicotine dependence, cigarettes, uncomplicated
CPT/HCPCS: 73610; 99282

== ENCOUNTER → 2024-04-22 | Outpatient (CLI) | payer OTHER, SELFPAY ==
--- NOTE | 2024-04-22 12:51 | RAD_ITS ---
INDICATION: fall EXAMINATION/TECHNIQUE: X-RAY - RIGHT XR Foot Min 3 Views 3 VIEWS COMPARISON: Ankle radiograph April 14, 2022 FINDINGS: SOFT TISSUES: Dorsal forefoot and anterior ankle edema. No radiopaque foreign body. BONES/JOINTS: No acute fracture.. Normal alignment. Preservation of the joint space with subchondral cystic change and osteophyte formation at the third middle phalanx base... No aggressive osseous lesion. RAD/Foot min 3 Views IMPRESSION: Nonspecific dorsal forefoot and ankle edema.. No visible fracture. 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
== END | disposition home or self-care (01) ==
PROVIDERS: PCP Family Medicine; Referring Provider Family Medicine; Visit Provider Family Medicine
DX: M79.671 Pain in right foot (principal)
CPT/HCPCS: 73630

== ENCOUNTER → 2024-10-10 | Outpatient (CLI) | payer OTHER, SELFPAY ==
--- NOTE | 2024-10-10 13:37 | BI_ITS ---
PROCEDURE: SCRN MAMM (CAD)W/DILLON BILAT REASON FOR EXAM: F, Age 39 y/o, bilateral breast lumps. Grandmother with breast cancer. Aunt with breast cancer. TECHNIQUE: Bilateral screening digital breast tomosynthesis with 2D and 3D images. Computer aided detection. COMPARISON: Prior exam(s) dating back to April 08, 2015.. FINDINGS: The breasts are heterogeneously dense which may obscure small masses. No suspicious masses, areas of developing architectural distortion, or suspicious calcifications. BI/SCRN MAMM (CAD)W/DILLON BILAT IMPRESSION: With the patient's history of bilateral breast lumps, targeted correlation with sonogram recommended. BI-RADS 0: INCOMPLETE - NEED ADDITIONAL IMAGING EVALUATION. Follow-up code: OTHER The patient will be notified of the results by letter. Reading Location: [place] [id number]
== END | disposition home or self-care (01) ==
LOC: OPBI 13:37
PROVIDERS: PCP Family Medicine; Referring Provider Family Medicine; Visit Provider Family Medicine
DX: Z12.31 Encounter for screening mammogram for malignant neoplasm of breast (principal)
CPT/HCPCS: 77063; 77067

== ENCOUNTER → 2024-10-15 | Outpatient (CLI) | payer OTHER, SELFPAY ==
--- NOTE | 2024-10-15 09:05 | US_ITS ---
EXAM: BREAST LIMITED UNILATERAL CLINICAL HISTORY: Palpable lump in the lower aspect of the left breast. COMPARISON: Comparison is made with prior mammogram done earlier in the day. TECHNIQUE: Imaging of the inferior aspect of the left breast was obtained with ultrasound. FINDINGS: Fibroglandular tissue is seen. No sonographic abnormality is present US/Breast Limited Unilateral IMPRESSION: No sonographic abnormality is seen. BI-RADS category 1. Reading Location: [id number]
--- NOTE | 2024-10-15 09:05 | US_ITS ---
PROCEDURE: BREAST LIMITED bilateral. REASON FOR EXAM: Palpable lumps in each breast. COMPARISON: Comparison is made with prior mammogram done earlier in the day. TECHNIQUE: Targeted bilateral breast ultrasound. FINDINGS: RIGHT: Ultrasound targeted to the upper medial aspect of the right breast. The breast tissue appears sonographically normal. No cyst, solid mass, or suspicious shadowing. LEFT: Ultrasound targeted to the inferior half at the left breast. The breast tissue appears sonographically normal. No cyst, solid mass, or suspicious shadowing. US/Breast Limited Unilateral IMPRESSION: No sonographic abnormality is seen. BI-RADS 1: NEGATIVE. RECOMMEND ANNUAL MAMMOGRAPHIC SCREENING. Reading Location: [place] [id number]
== END | disposition home or self-care (01) ==
LOC: OPUS 09:04
PROVIDERS: PCP Family Medicine; Referring Provider Family Medicine; Visit Provider Family Medicine
DX: R92.8 Other abnormal and inconclusive findings on diagnostic imaging of breast (principal)
CPT/HCPCS: 76642

== ENCOUNTER → 2024-10-16 | Outpatient (CLI) | payer OTHER, SELFPAY ==
--- NOTE | 2024-10-16 14:58 | RAD_ITS ---
EXAM: XR Chest, 2 Views CLINICAL INDICATION: TECHNIQUE: Frontal and lateral views of the chest. COMPARISON: No relevant prior studies available. FINDINGS: LUNGS AND PLEURAL SPACES: Unremarkable. No consolidation. No pneumothorax. HEART: Unremarkable. No cardiomegaly. MEDIASTINUM: Unremarkable. Normal mediastinal contour. BONES/JOINTS: Unremarkable. No acute fracture. RAD/Chest PA and Lateral IMPRESSION: No acute cardiopulmonary process. Reading Location: [facility]
[2024-10-16 17:46] LABS: Absolute Lymphocyte Count 1.68 X10^3/uL (0.83-4.51); Absolute Neutrophil Count 3.6 X10^3/uL (2.0-7.7); Basophil# 0.05 X10^3/uL; Basophil% 0.9 % (0-1); Eosinophil# 0.17 X10^3/uL; Eosinophils% 2.9 % (0-5); Hemoglobin 13.7 g/dL (12.0-15.0); Lymphocyte # 1.68 X10^3/ul (0.83-4.51); Mean Corp Hgb Conc 33.4 g/dL (32-36); Mean Corpuscular Hgb 29.3 pg (27.0-32.0); Mean Corpuscular Volume 87.8 fL (81-99); Monocyte# 0.27 X10^3/uL; Monocyte% 4.7 % (0-10); NRBC Flagged by Analyzer 0 % (0-5); Neutrophil # 3.61 X10^3/uL (2.7-7.7); Neutrophil % 62.3 % (47-70); Platelet Count 259 K/mm3 (150-450); RBC Distribution Width CV 13.5 % (11.6-14.6); RBC Distribution Width SD 42.7 fl (35.1-43.9); Red Blood Count 4.67 M/mm3 (4.2-5.4); White Blood Count 5.8 K/mm3 (4.4-11.0)
[2024-10-16 18:16] LABS: AST(SGOT) 39 U/L (15-37); Alanine Aminotransfer ALT/SGPT 96 U/L (13-56); Alkaline Phosphatase 76 U/L (45-117); Anion Gap 8 (5-15); BUN 8 mg/dL (7-18); BUN/Creat Ratio 10.2 RATIO (10-20); Calcium,Total 9.4 mg/dL (8.5-10.1); Chloride 105 mmol/L (98-107); Creatinine, Serum 0.78 mg/dL (0.55-1.02); EST Glomerular Filtration Rate 87 mL/min (>60); Est Glom Filt Rate - Afr Amer 105 mL/min (>60); Ferritin 318 ng/mL (8-252); Glucose 127 mg/dL (74-106); Iron 89 ug/dL (50-170); Potassium 3.5 mmol/L (3.5-5.1); Sodium Level 139 mmol/L (136-145); Vitamin B12 283 pg/mL (211-911); Vitamin D,25 Hydroxy 6.7 ng/mL
[2024-10-16 18:31] LABS: Erythrocyte Sedimentation Rate 7 mm/hr (0-30)
== END | disposition home or self-care (01) ==
LOC: MTLAB 14:58
PROVIDERS: PCP Family Medicine; Referring Provider Family Medicine; Visit Provider Family Medicine
DX: R07.9 Chest pain, unspecified (principal); R53.83 Other fatigue; M94.0 Chondrocostal junction syndrome [Tietze]
CPT/HCPCS: 36415; 71046; 80053; 82306; 82533; 82607; 82728; 83540; 84443; 85025; 85652; 86140

== ENCOUNTER 2024-12-02 20:59 | Emergency (ER) | payer OTHER, SELFPAY ==
[2024-12-02 21:00] VITALS: BP 119/106; PULSE 99; RESP 22; TEMP 36.8; O2SAT 100; BMI 42.0
--- NOTE | 2024-12-02 21:29 | CT_ITS ---
EXAM: CT abdomen/pelvis with IV contrast CLINICAL HISTORY: Right lower quadrant abdominal pain. COMPARISON: CT abdomen and pelvis with IV contrast dated 01/03/2022. TECHNIQUE: CT abdomen and pelvis with IV contrast. Multiplanar reformats were obtained afterwards. FINDINGS: There are trace bilateral pleural effusions, [id number]. There is no free air seen within the abdomen and pelvis. The liver demonstrates a slightly low-attenuation which may be due to fatty infiltration. The liver is mildly prominent measuring up to 22.3 cm in length. The spleen, adrenals, pancreas, kidneys are within normal limits. Urinary bladder is within normal limits. The uterus is not visualized and likely surgically absent. Correlate clinically. Mild sigmoid diverticulosis is present without definite CT evidence of acute diverticulitis. There is no bowel obstruction. The appendix is normal. No abnormal free fluid is seen within the abdomen or pelvis. No acute osseous abnormality seen. CT/Abdomen/Pelvis W IV Cont ONLY IMPRESSION: Probable fatty infiltration of the liver. Borderline hepatomegaly. Trace bilateral pleural effusions, [id number]. Etiology to be det ermined. Sigmoid diverticulosis without definite CT evidence for acute diverticulitis. Normal appearance of the appendix. Other findings as above. Reading Location: [id number]
[2024-12-02 21:41] LABS: Mucous, Urine 0 SEEN /hpf (<or=2+); White Blood Cells 0 SEEN /hpf (0-5)
[2024-12-02] MEDS: Morphine 4 MG/ML Syringe IV (21:41)
[2024-12-02] MEDS: 0.9% Normal Saline (1000mL) 1,000 ML 999 ML IV (21:41)
[2024-12-02 21:42] LABS: Absolute Lymphocyte Count 2.29 X10^3/uL (0.83-4.51); Absolute Neutrophil Count 5.2 X10^3/uL (2.0-7.7); Basophil# 0.06 X10^3/uL; Basophil% 0.7 % (0-1); Eosinophil# 0.18 X10^3/uL; Eosinophils% 2.2 % (0-5); Hematocrit 37.4 % (37-47); Hemoglobin 13.2 g/dL (12.0-15.0); Lymphocyte # 2.29 X10^3/ul (0.83-4.51); Lymphocyte % 28.4 % (19-41); Mean Corp Hgb Conc 35.3 g/dL (32-36); Mean Corpuscular Hgb 30.1 pg (27.0-32.0); Mean Corpuscular Volume 85.2 fL (81-99); Mean Platelet Vol. 9.6 fl (6.2-12.0); Monocyte# 0.31 X10^3/uL; Monocyte% 3.9 % (0-10); NRBC Flagged by Analyzer 0 % (0-5); Neutrophil # 5.18 X10^3/uL (2.7-7.7); Neutrophil % 64.4 % (47-70); Platelet Count 268 K/mm3 (150-450); RBC Distribution Width CV 13.2 % (11.6-14.6); RBC Distribution Width SD 40.4 fl (35.1-43.9); Red Blood Count 4.39 M/mm3 (4.2-5.4); White Blood Count 8.1 K/mm3 (4.4-11.0)
[2024-12-02 21:43] LABS: Color, Urine Yellow (Yellow); Glucose, Dipstick Normal (Normal); Ketone-Dipstick Negative (Negative); Leukocyte Esterase-Dipstick Negative /ul (Negative); Nitrite-Dipstick Negative (Negative); Occult Blood-Urine Negative /ul (Negative); Protein-Dipstick 15 mg/dl (Negative); Urine Bilirubin Dipstick Negative (Negative); Urine Clarity Clear (Clear); Urine Urobilinogen Normal (Normal)
--- NOTE | 2024-12-02 21:43 | EX.ED.DYSGE1 ---
HPI History of Present Illness Chief Complaint: Abd Pain Narrative Narrative: Chief complaint and HPI: Right sided abdominal pain. 39-year-old female with past medical history of cholecystectomy and total hysterectomy presents for evaluation of right-sided abdominal pain. Patient states for the past week that she has had right sided abdominal pain. Progressively worsening. Associated symptom is nausea. She denies any fever, chills, chest pain, shortness of breath, emesis, dysuria, diarrhea, constipation. Has remote history of urolithiasis in the past. Review of systems: See HPI Medications: As listed on the chart Allergies: As listed on the chart PFSH: Per chart Vital signs: As listed on the chart. Reviewed. Physical exam: Gen: A&O x3, NAD Head: Normocephalic, atraumatic Eyes: No sclera icterus, conjunctiva clear ENT: Moist mucous membranes Neck: Trachea midline, No JVD CV: RRR, no murmurs, no peripheral edema Resp: Lungs CTA BL, no w/r/c GI: Abd soft, non-distended, mildly tender to palpation in the right upper and right lower quadrant, no rebound or rigidity : No CVA tenderness Musc: Full ROM, no deformity Skin: Warm, dry Neuro: Alert, oriented, grossly intact, sensation intact Psych: Cooperative, appropriate mood and affect [facility] Medical History (Updated 12/02/24 @ 23:[address] Sergio Rainey-Jose, DO) Left knee pain Contusion of right hand Strain of extensor muscle, fascia and tendon of right middle finger at wrist and hand level, initial encounter Acute bronchitis, unspecified Knee pain Severe headache Fatigue Gestational diabetes IBS (irritable bowel syndrome) GI problem Gallstones H/O gestational diabetes mellitus, not currently Asthma Anxiety and depression Home Medications ?Medication ?Instructions ?Recorded ?Last Taken ?Type ibuprofen 600 mg tablet 600 mg PO Q8H PRN 01/29/23 Unknown History pantoprazole 40 mg tablet,delayed 40 mg PO DAILY 30 days #30 tabs 12/02/24 Unknown Rx release (Protonix) Allergy/AdvReac Type Severity Reaction Status Date / Time fentanyl Allergy Rash Verified 12/02/24 20:59 ketorolac tromethamine (From Allergy Rash Verified 12/02/24 20:59 Toradol) adhesive tape (plastic tape) AdvReac NEEDS Verified 12/02/24 20:59 FOLLOW-UP COLD MEDICATIONS AdvReac Unknown Uncoded 01/24/23 15:10 Family History Grandmother Breast cancer Diabetes Thyroid disorder Grandfather Diabetes Hypertension Father Hypertension Sister Diabetes Thyroid disorder Surgical History Hx of fusion of cervical spine H/O tubal ligation S/P wrist surgery H/O knee surgery H/O: hysterectomy Hx of removal of ovary Hx of cholecystectomy gastric diveticulum resection Social History (Updated 01/29/23 @ 10:02 by Hamida Davison) Smoking Status: Current every day smoker tobacco type: e-cigarettes Electronic Cigarette Use: with nicotine alcohol intake: never substance use type: does not use EXAM Physical Exam Const Vital Signs: 12/02/24 21:00 12/02/24 23:00 12/02/24 23:14 Temperature 98.3 F 98 F Temperature Source Oral Pulse Rate 99 83 82 Respiratory Rate 22 H 18 18 Blood Pressure 119/106 H 154/75 H 154/75 H Blood Pressure Mean 110 101 101 Pulse Ox 100 97 96 Oxygen Delivery Method Room Air Room Air MDM MDM MDM Narrative Medical decision making narrative: 39-year-old female with past medical history of cholecystectomy and total hysterectomy presents for evaluation of right-sided abdominal pain. Differential diagnosis includes but is not limited to viral gastroenteritis, gastritis, obstruction, appendicitis, colitis, pancreatitis. NS bolus, morphine, Zofran ordered for symptoms. Laboratory workup ordered including CT abdomen pelvis. was not obtained given that patient has had a total hysterectomy. CBC without leukocytosis or anemia. CMP without electrolyte abnormality or VI. Patient has baseline mild transaminitis likely secondary to her previous cholecystectomy. Lipase unremarkable. UA is negative for UTI. CT abdomen pelvis shows probable fatty infiltration of the liver. Borderline hepatomegaly. Trace bilateral pleural effusions, right greater than left. Patient not endorsing any shortness of breath. Sigmoid diverticulosis without diverticulitis. Normal appearance of the appendix. On reevaluation, her pain is improved but still present. No clear etiology to explain patient's abdominal pain. Pain may be secondary to gastritis. On further talking to the patient she states that she has a lot of pain throughout her body intermittently and is currently being worked up for fibromyalgia by her primary care physician. This could also be a cause of her pain. IV Pepcid ordered for possible gastritis. Patient was updated of all of her results and the plan for discharge home. Return precautions explained. Follow-up with PCP. Will place on Protonix x 1 month for possible gastritis to see if patient will have improvement in pain. She confirmed understanding of the plan. Impression: 1. Right sided abdominal pain Lab Data Labs: Laboratory Results - last 24 hr 12/02/24 21:33 WBC 8.1 RBC 4.39 Hgb 13.2 Hct 37.4 MCV 85.2 MCH 30.1 MCHC 35.3 RDW Std Deviation 40.4 RDW Coeff of Anushka 13.2 Plt Count 268 MPV 9.6 Immature Gran % (Auto) 0.400 Neut % (Auto) 64.4 Lymph % (Auto) 28.4 [place] % (Auto) 3.9 Eos % (Auto) 2.2 Baso % (Auto) 0.7 Absolute Neuts (auto) 5.2 Absolute Lymphs (auto) 2.29 Nucleated RBC % 0 Sodium 139 Potassium 3.6 Chloride 103 Carbon Dioxide 22.4 Anion Gap 13 BUN 10 Creatinine 0.85 Estim Creat Clear Calc 124.26 Est GFR (MDRD) Non-Af 89 BUN/Creatinine Ratio 12.2 Glucose 155 H Calcium 9.1 Total Bilirubin 0.49 AST 35 H ALT 70 H Alkaline Phosphatase 81 Total Protein 7.4 Albumin 4.5 Globulin 2.9 Albumin/Globulin Ratio 1.6 Lipase 54 Urine Color Yellow Urine Clarity Clear Urine pH 6.0 Ur Specific Rosalia 1.020 Urine Protein 15 H Urine Glucose (UA) Normal Urine Ketones Negative Urine Occult Blood Negative Urine Nitrite Negative Urine Bilirubin Negative Urine Urobilinogen Normal Ur Leukocyte Esterase Negative Urine RBC 0 SEEN Urine WBC 0 SEEN Ur Squamous Epith Cells 0-5 SEEN Urine Bacteria 1+ Urine Mucus 0 SEEN Radiography Diagnostic Testing: Clinical Impression(s) from Imaging Studies Abdomen/Pelvis CT 12/02/24 21:29 IMPRESSION: Probable fatty infiltration of the liver. Borderline hepatomegaly. Trace bilateral pleural effusions, [id number]. Etiology to be determined. Sigmoid diverticulosis without definite CT evidence for acute diverticulitis. Normal appearance of the appendix. Other findings as above. Reading Location: [id number] Discharge Plan Triage Chief Complaint: Abd Pain ED Provider: Sergio Lloyd Dx/Rx/DC Orders Clinical Impression: Right-sided abdominal pain of unknown etiology Instructions: ED Abdominal Pain Unkn Cause Fem Prescriptions: New pantoprazole [Protonix] 40 mg tablet,delayed release (DR/EC) 40 mg PO DAILY 30 Days Qty: 30 0RF No Action ibuprofen 600 mg tablet 600 mg PO Q8H PRN Primary Care Provider: Dio Castellanos Referrals: Dio Castellanos MD [Primary Care Provider] - 3-5 Days Activity Restrictions/Additional Instructions: Follow-up with your primary care physician. Return back to the ED if symptoms change or worsen. Recommend stop taking ibuprofen for pain if this is gastritis. Take Protonix to see if this helps with your pain. Okay for Tylenol. Your CT scan showed sigmoid diverticulosis as well as likely fatty infiltration of the liver. Print Language: Nepali Disposition Disposition: Home, Self Care
[2024-12-02] MEDS: Ondansetron 4 MG/2 ML Vial IV (21:46)
[2024-12-02 21:54] LABS: Bacteria 1+ /hpf (None Seen); Red Blood Cells-Urine 0 SEEN /hpf (0-5); Squamous Epithelial Cells - UA 0-5 SEEN /hpf (5-10)
[2024-12-02 22:01] LABS: ALB/GLOB Ratio 1.6 RATIO (0.9-2.4); AST(SGOT) 35 U/L (<=31); Alanine Aminotransfer ALT/SGPT 70 U/L (<=34); Albumin, Serum 4.5 g/dL (3.5-5.0); Alkaline Phosphatase 81 U/L (35-104); Anion Gap 13 (5-15); BUN 10 mg/dL (4-19); BUN/Creat Ratio 12.2 RATIO (10-20); Calcium,Total 9.1 mg/dL (7.6-11.0); Carbon Dioxide 22.4 mmol/L (21.0-32.0); Chloride 103 mmol/L (98-108); Creatinine, Serum 0.85 mg/dL (0.70-1.20); EST Glomerular Filtration Rate 89 (>60); Estimated Creatinine Clearance 124.26 ml/min (50-250); Globulin 2.9 g/dL (2.2-4.2); Glucose 155 mg/dL (70-99); Lipase 54 U/L (13-75); Potassium 3.6 mmol/L (3.3-5.1); Protein, Total 7.4 g/dL (5.9-8.4); Sodium Level 139 mmol/L (133-145); Total Bilirubin 0.49 mg/dL (0.00-1.30)
[2024-12-02 23:00] VITALS: BP 154/75; PULSE 83; RESP 18; O2SAT 97
[2024-12-02] MEDS: Famotidine 200 MG/20 ML MDV 20 MG in 0.9% Normal Saline (Pres. free 8 ML 300 MG IV (23:12)
[2024-12-02 23:14] VITALS: BP 154/75; PULSE 82; RESP 18; TEMP 36.6; O2SAT 96
== END 2024-12-02 23:54 | disposition home or self-care (01) ==
PROVIDERS: Emergency Provider Surgery; PCP Family Medicine; Visit Provider Surgery
DX: R10.9 Unspecified abdominal pain (principal); F17.290 Nicotine dependence, other tobacco product, uncomplicated
CPT/HCPCS: 74177; 80053; 81001; 83690; 85025; 96361; 96374; 96375; 96376; 99283; Q9967; A4216; J2405

== ENCOUNTER → 2025-01-14 | Outpatient (CLI) | payer OTHER, SELFPAY ==
--- NOTE | 2025-01-14 14:53 | NEURO ---
NCS and/or EMG Patient Report Ordering Doctor: Carmelina Celaya DATE OF SERVICE: 01/14/25 Hue presents with complaints of numbness and tingling in both hands. She has a history of cervical fusion. Electrodiagnostic findings: Median motor nerve demonstrates normal distal latency, amplitude and conduction velocity bilaterally. Ulnar motor response within normal limits bilaterally. Normal median and ulnar F waves. Sensory responses are within normal limits bilaterally. Normal median palmar latency bilaterally. Needle EMG testing was performed in the upper limbs. All muscles tested showed no evidence of denervation with normal motor unit action potentials. Electrodiagnostic impression: This a normal electrodiagnostic study of the upper limbs. There is no electrodiagnostic evidence for peripheral neuropathy, including carpal tunnel or cubital tunnel syndrome. Multi Select Codes Neurology Neurology Interp Codes: 76579-57 Musc test done w/n test comp (interp) (2) and 80076-02 Nrv cndj test 13/> studies (interp)
== END | disposition home or self-care (01) ==
LOC: PSN 13:34
PROVIDERS: PCP Family Medicine
DX: R20.2 Paresthesia of skin (principal)
CPT/HCPCS: 95886; 95913